=== PATIENT | female | born 1930 | race Caucasian/White ===

== ENCOUNTER 2017-04-03 20:11 | Inpatient (IN) ==
[2017-04-03] MEDS ORDERED: Ipratropium/Albuterol Neb 3 ML IH ONE (20:40)
[2017-04-03] MEDS ORDERED: methylPREDNISolone 125 MG/2 ML VIAL IVP ONE (20:41)
--- NOTE | 2017-04-03 21:07 | Emergency Department Note ---
Disposition Clinical Impression: Acute exacerbation of chronic obstructive airways disease Disposition: Admitted As Inpatient Condition: Fair Referrals: Kirstin Kraus DO [Primary Care Provider] - Forms: ED Satisfaction Letter Time of Disposition: 22:45 SOB HPI - General Chief Complaint: ED Shortness of Breath/Dyspnea Stated Complaint: LISSY, congestion Time Seen by Provider: 04/03/17 20:20 Source: patient, family Limitations: no limitations Nursing Notes Reviewed: Yes Vital Signs Reviewed: Yes - History of Present Illness Ms. Lares is an 87 y/o F with a PMHx of COPD presents with difficulty breathing and shortness of breath. She states that she is more short of breath during coughing. Patient states that she has been feeling congested for the past 2 weeks. Also, the patient states that she had a sinus infection 2 weeks ago. She recently completed a course of amoxicillin for 10 days 1 week ago. Patient states that she feels like her sinus infection has not improved since 2 weeks ago. Patient admits that she was short of breath yesterday on exertion, but today she was short of breath at rest. She is currently on 2 L of oxygen at home. Patient admits productive cough that has been worsening over the past 2 weeks. Patient denies any fever, chest pain, palpitations, abdominal pain, constipation, diarrhea, nausea and vomiting, and weaknesses. Pt Subjective Complaint: shortness of breath, cough Onset (ago): week(s) (two weeks ago) Context: recent illness, occurred during exertion Severity: severe Consistency/Duration: gradually worsening Improves with: nothing Worsens with: coughing Known history of: COPD Associated symptoms: Reports: cough, wheezing, sputum production. Denies: pain with inspiration, fever, hemoptysis, abdominal pain Cough present: Yes Cough Description: Productive Cough Frequency: Persistent Sputum production: Yes Sputum Color: Yellow - Related Data Home oxygen amount: 2 liters Home Medications Medication Instructions Recorded Confirmed Benzonatate [Tessalon] 100 mg PO TID PRN 07/01/15 07/01/15 Fexofenadine/Pseudoephedrine 1 each PO DAILY PRN 07/01/15 07/01/15 [Katarina-D 24 Hour Tablet] Gabapentin [Neurontin] 600 mg PO TID 07/01/15 07/01/15 Levothyroxine [Synthroid] 75 mcg PO QAM 07/01/15 07/01/15 Lisinopril 2.5 mg PO DAILY 07/01/15 07/01/15 Loperamide HCl [Imodium A-D] 2 mg PO BID PRN 07/01/15 07/01/15 NIFEdipine [Nifedipine ER] 60 mg PO DAILY 07/01/15 07/01/15 Potassium Chloride [Klor-Con 10 meq PO QAM 07/01/15 07/01/15 Sprinkle] Sennosides/Docusate Sodium [Senna 1 - 2 each PO DAILY PRN 07/01/15 07/01/15 Plus] Simvastatin [Zocor] 20 mg PO HS 07/01/15 07/01/15 carBAMazepine [Tegretol] 200 mg PO BID 07/01/15 07/01/15 diazePAM [Valium] 2 mg PO HS 07/01/15 07/01/15 Allergies Allergy/AdvReac Type Severity Reaction Status Date / Time cephalexin [From Keflex] Allergy Difficulty Verified 04/03/17 20:14 Breathing levofloxacin [From Levaquin] Allergy Difficulty Verified 04/03/17 20:14 Breathing moxifloxacin [From Avelox] Allergy Difficulty Verified 04/03/17 20:14 Breathing Constitutional: Denies: fever, chills, weakness, weight change Eyes: Denies: eye pain, eye discharge, vision change ENT ED: Denies: ear pain, throat pain, dental pain, hearing loss, epistaxis, congestion, dysphagia Cardiovascular: Reports: dyspnea on exertion. Denies: chest pain, palpitations , edema, syncope Respiratory: Reports: cough, dyspnea, wheezes, sputum production. Denies: hemoptysis, stridor Gastrointestinal: Denies: abdominal pain, nausea, vomiting, diarrhea, constipation, hematemesis, melena, hematochezia Genitourinary: Denies: dysuria, frequency, hematuria, discharge Musculoskeletal: Denies: back pain, neck pain, arthralgia, myalgia Integumentary: Denies: rash, abrasion, lesions Neurological: Denies: headache, weakness, numbness, paresthesias, confusion, abnormal gait, vertigo Psychiatric: Denies: anxiety, depression, suicidal thoughts, homicidal thoughts , auditory hallucinations, visual hallucinations Endocrine: Denies: fatigue Hematological/Lymphatic: Denies: easy bleeding, easy bruising Allergic/Immunologic: Denies: facial swelling, urticaria Past Medical History - Past Medical History Medical history: Reports: arthritis, COPD, diabetes, GERD, glaucoma, hypertension, osteoporosis, seizures, thyroid disease, other Surgical history: Reports: no surgical history Psychiatric history: Reports: anxiety LICENSED CLINICIAN history: Reports: non-contributory - Social History Smoking Status: Former smoker Smokeless Tobacco Status: No Alcohol use: Reports: none Drug use: Reports: none Physical Exam - General Limitations: no limitations General appearance: alert, in no apparent distress - Head Head exam: atraumatic, normocephalic, normal inspection - Eye Eye exam: Present: normal appearance, PERRL, EOMI - Expanded Eye Exam Pupils: Left: reactive - ENT ENT exam: normal exam, normal oropharynx, mucous membranes moist - Expanded ENT Exam External ear exam: Present: normal external inspection Mouth exam: Present: normal external inspection Teeth exam: Present: normal inspection Throat exam: Present: normal inspection - Neck Neck exam: Present: normal inspection, full ROM, trachea midline - Chest Chest inspection: Present: normal inspection, symmetric chest wall rise - Respiratory Respiratory exam: Present: wheezes (wheezes bilaterally in upper and lower lobes ), prolonged expiratory phase - Cardiovascular Cardiovascular exam: Present: regular rate, normal rhythm, normal heart sounds. Absent: systolic murmur, diastolic murmur, rubs, gallop - Abdominal Exam Abdominal exam: Present: soft, Non-Tender, normal bowel sounds. Absent: tenderness, distention, guarding, rebound, rigidity, organomegaly, trauma - Extremities Exam Extremities exam: Present: normal inspection, full ROM. Absent: tenderness, pedal edema - Expanded Upper Extremity Exam Shoulder exam: Present: normal inspection, full ROM Arm exam: Present: normal inspection, full ROM Elbow exam: Present: normal inspection, full ROM Forearm/Wrist exam: Present: normal inspection, full ROM Hand exam: Present: normal inspection, full ROM Vascular exam: Normal: capillary refill, radial pulse - Expanded Lower Extremity Exam Hip/Pelvis exam: Present: normal inspection, full ROM Upper leg exam: Present: normal inspection, full ROM Knee exam: Present: normal inspection, full ROM Lower leg exam: Present: normal inspection, full ROM Ankle exam: Present: normal inspection, full ROM Foot/toe exam: Present: normal inspection, full ROM Neurovascular/Tendon exam: Absent: motor deficit, sensory deficit, tendon deficit - Back Exam Back exam: Present: normal inspection, full ROM. Absent: tenderness - Neurological Exam Neurological exam: Present: alert, oriented X3 - Expanded Neurological Exam Patient oriented to: Present: person, place, time Coma Scale Eye Opening: Spontaneous Coma Scale Motor Response: Obeys Commands Coma Scale Verbal Response: Oriented Coma Scale Total: 15 - Psychiatric Psychiatric exam: Present: normal affect, normal mood - Skin Skin exam: Present: warm, dry, intact, normal color Course - Reevaluation(s) Reevaluation #1: 87-year-old COPD has progressive shortness of breath. Initially was just with exertion but now at rest. Time: 23:40 - Consultations Consultation #1: Discussed with , admit. Time: 23:41 Vital Signs Temperature 98.1 F 04/03/17 20:15 Pulse Rate 91 04/03/17 20:15 Respiratory Rate 24 04/03/17 20:15 Blood Pressure 124/68 04/03/17 20:15 O2 Sat by Pulse Oximetry 96 04/03/17 20:15 Temperature 98.1 F 04/03/17 20:15 Pulse Rate 74 04/03/17 23:15 Respiratory Rate 16 04/03/17 23:15 Blood Pressure 129/61 04/03/17 23:15 O2 Sat by Pulse Oximetry 97 04/03/17 23:15 Oxygen Delivery Oxygen Delivery Nasal Cannula Shortness of Breath/Dyspnea - Lab Data Lab results reviewed: Yes I reviewed the patient's lab results. Result diagrams: 04/03/17 21:13 04/03/17 21:13 Lab Results 04/03/17 04/03/17 04/03/17 Range/Units 21:13 21:13 21:13 WBC 7.3 (4.3-11.1) K/mcL RBC 3.39 L (3.82-4.97) M/mcL Hgb 11.4 L (11.5-15.4) g/dL Hct 33.7 L (35.3-44.9) % MCV 99.4 (83.0-100.0) fL MCH 33.6 H (28.0-33.3) pg MCHC 33.8 (31.6-35.5) g/dL RDW 12.5 (11.5-14.5) % Plt Count 258 (140-400) K/mcL MPV 9.3 L (9.4-12.4) fL Immature Gran % 0.3 (0-4) % Seg Neutrophils % 50.9 % Lymphocytes % 27.1 % Monocytes % 14.1 % Eosinophils % 7.1 % Basophils % 0.5 % Neutrophils # 3.7 (1.6-8.9) K/mcL Lymphocytes # 2.0 (0.6-4.6) K/mcL Monocytes # 1.0 (0.0-1.3) K/mcL Eosinophils # 0.5 (0.0-0.6) K/mcL Basophils # 0.0 (0.0-0.2) K/mcL Sodium 135 L (136-145) mEq/L Potassium 3.6 (3.5-4.5) mEq/L Chloride 98 (98-109) mEq/L Carbon Dioxide 29 (19-29) mEq/L BUN 16 (7-20) mg/dL Creatinine 0.96 (0.57-1.11) mg/dL Est GFR ( Amer) > 60 (> 60) Est GFR (Non-Af Amer) 55 L (> 60) BUN/Creatinine Ratio 17 (6-26) Glucose 145 H (70-99) mg/dL Calculated Osmolality 284 (280-300) Lactic Acid (0.5-2.2) mmol/L Calcium 9.2 (8.6-10.8) mg/dL Troponin I 0.01 (0-0.03) ng/mL B-Natriuretic Peptide (0-100) pg/mL 04/03/17 04/03/17 Range/Units 21:13 21:21 WBC (4.3-11.1) K/mcL RBC (3.82-4.97) M/mcL Hgb (11.5-15.4) g/dL Hct (35.3-44.9) % MCV (83.0-100.0) fL MCH (28.0-33.3) pg MCHC (31.6-35.5) g/dL RDW (11.5-14.5) % Plt Count (140-400) K/mcL MPV (9.4-12.4) fL Immature Gran % (0-4) % Seg Neutrophils % % Lymphocytes % % Monocytes % % Eosinophils % % Basophils % % Neutrophils # (1.6-8.9) K/mcL Lymphocytes # (0.6-4.6) K/mcL Monocytes # (0.0-1.3) K/mcL Eosinophils # (0.0-0.6) K/mcL Basophils # (0.0-0.2) K/mcL Sodium (136-145) mEq/L Potassium (3.5-4.5) mEq/L Chloride (98-109) mEq/L Carbon Dioxide (19-29) mEq/L BUN (7-20) mg/dL Creatinine (0.57-1.11) mg/dL Est GFR ( Amer) (> 60) Est GFR (Non-Af Amer) (> 60) BUN/Creatinine Ratio (6-26) Glucose (70-99) mg/dL Calculated Osmolality (280-300) Lactic Acid 0.9 (0.5-2.2) mmol/L Calcium (8.6-10.8) mg/dL Troponin I (0-0.03) ng/mL B-Natriuretic Peptide 46 (0-100) pg/mL - Radiology Data Radiology results reviewed: Yes I reviewed the patient's radiology results. Chest X-Ray 04/03/17 20:46 IMPRESSION: No focal airspace consolidation or pulmonary vascular congestion. D/ / Keith Wright / Keith Wright Interpreting Provider: Keith Wright - EKG Data EKG attestation: Yes I reviewed and interpreted this EKG. EKG shows normal: Reports: sinus rhythm Rate: Reports: normal Rhythm: Reports: NSR Interpretation: Reports: no acute changes, nonspecific ST-T wave changes
[2017-04-03 21:26] LABS: Basophils % 0.5 %; Eosinophils # 0.5 K/mcL (0.0-0.6); Eosinophils % 7.1 %; Hematocrit 33.7 % (35.3-44.9); Hemoglobin 11.4 g/dL (11.5-15.4); Immature Granulocytes % 0.3 % (0-4); Lymphocytes % 27.1 %; Mean Corpuscular HGB Conc 33.8 g/dL (31.6-35.5); Mean Corpuscular Hemoglobin 33.6 pg (28.0-33.3); Mean Corpuscular Volume 99.4 fL (83.0-100.0); Mean Platelet Volume 9.3 fL (9.4-12.4); Monocytes % 14.1 %; Neutrophils # 3.7 K/mcL (1.6-8.9); Platelet Count 258 K/mcL (140-400); Red Blood Count 3.39 M/mcL (3.82-4.97); Red Cell Distribution Width 12.5 % (11.5-14.5); Segmented Neutrophils % 50.9 %
[2017-04-03 21:39] LABS: BUN/Creatinine Ratio 17 (6-26); Blood Urea Nitrogen 16 mg/dL (7-20); Calcium 9.2 mg/dL (8.6-10.8); Carbon Dioxide 29 mEq/L (19-29); Chloride 98 mEq/L (98-109); Glucose 145 mg/dL (70-99); Osmolality,Calculated 284 (280-300); Potassium 3.6 mEq/L (3.5-4.5); Sodium 135 mEq/L (136-145); eGFR For African Americans > 60 (> 60); eGFR For Non-African Americans 55 (> 60)
[2017-04-04] MEDS ORDERED: Naloxone 0.4 MG/ML INJ IVP PRN (02:51)
[2017-04-04] MEDS ORDERED: Albuterol 2.5 MG/3 ML NEBULIZER IH PRN (02:57)
[2017-04-04] MEDS ORDERED: Sennosides/Docusate Sodium TABLET PO PRN (02:59)
[2017-04-04] MEDS ORDERED: Gabapentin 300 MG CAPSULE PO PRN (02:59)
[2017-04-04] MEDS ORDERED: Loratadine/Pseudophed (12 HR) 1 EACH TABLET PO PRN (02:59)
[2017-04-04] MEDS ORDERED: carBAMazepine 200 MG TABLET PO PRN (02:59)
[2017-04-04] MEDS ORDERED: Dextrose Gel 15 GM PO PRN ×2 (03:02)
[2017-04-04] MEDS ORDERED: D5% in Water 1,000 ML IVC PRN (03:02)
[2017-04-04] MEDS ORDERED: *HR* Dextrose 50 % in Water (Syg) 50 ML SYRINGE IVP PRN (03:02)
[2017-04-04] MEDS: Ipratropium/Albuterol Neb 3 ML IH SCH ×6 (03:12→20:02)
--- NOTE | 2017-04-04 03:30 | Internal Med History&Physical ---
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 She has home health only twice a week. consider social group worker evaluation prior to discharge to increase home health. Pt reports of being able to ambulate well around her house and uses a walker when she goes outside. (2) Hypothyroidism Current visit: Yes Status: Chronic continue home dose of levothyroxine Qualifiers: Hypothyroidism type: unspecified Qualified Code(s): E03.9 - Hypothyroidism , unspecified (3) Diabetes mellitus Current visit: Yes Status: Chronic hold oral antihyperglycemic agents continue sliding scale insulin algorithm monitor FS and BG ADA diet Qualifiers: Diabetes mellitus type: type 2 Diabetes mellitus complication status: with unspecified complications Diabetes mellitus exterminator termite insulin use: without exterminator termite use Qualified Code(s): E11.8 - Type 2 diabetes mellitus with unspecified complications (4) Hypertension Current visit: Yes Status: Chronic BP within acceptable range continue home medications Qualifiers: Hypertension type: essential hypertension Qualified Code(s): I10 - Essential (primary) hypertension (5) Anxiety Current visit: Yes Status: Chronic continue home medications (6) DVT prophylaxis Current visit: Yes Status: Acute Heparin SQ Internal Medicine - H&P: HPI Chief complaint: shortness of breath Admitted From: Home Plans for Post Hospital Care: Home History of present illness: Ms. Lares is a 87 year old female with PMH of COPD on LTOT, DM, GERD, HTN, hypothyroidism, anxiety who presents to the ER for worsening shortness of breath. Patient reports of living alone, is legally blind, and only has home health aid twice a week. She states she has had productive cough for the last few days with difficulty breathing, which has not been improved with her home breathing treatments. Upon arrival to the ER, she received IV steroids and nebulizer treatment. She reports of mild improvement and is currently saturating well on her baseline O2. She denies fevers but reports of persistent productive cough. Denies any chest pain, abd pain, n/v,fever, or chills. I had a detailed discussion about patient's advance directives. She wishes to be full code and elects her daughter Teena Rivas as her POA. Past Med Surg Social Fam HX - Past Medical History Medical history: arthritis, COPD, diabetes, GERD, glaucoma, hypertension, osteoporosis, thyroid disease, other Psychiatric history: anxiety - Past Surgical History Surgical History: no surgical history - Social History Smoking Status: Light tobacco smoker Smokeless Tobacco Status: No Alcohol use: none Drug use: none - Family History Mother Living Status: Hx Family Cardiac Disorders: Yes Internal Medicine - H&P: Meds Benzonatate [Tessalon] 100 mg PO TID PRN 07/01/15 [History] Fexofenadine/Pseudoephedrine [Katarina-D 24 Hour Tablet] 1 each PO DAILY PRN [History] Gabapentin [Neurontin] 600 mg PO TID PRN 07/01/15 [History] Levothyroxine [Synthroid] 75 mcg PO QAM 07/01/15 [History] Lisinopril 2.5 mg PO DAILY 07/01/15 [History] NIFEdipine [Nifedipine ER] 60 mg PO DAILY 07/01/15 [History] Potassium Chloride [Klor-Con Sprinkle] 10 meq PO QAM 07/01/15 [History] Sennosides/Docusate Sodium [Senna Plus] 1 - 2 each PO DAILY PRN 07/01/15 [ History] Simvastatin [Zocor] 20 mg PO HS 07/01/15 [History] carBAMazepine [Tegretol] 200 mg PO BID PRN 07/01/15 [History] diazePAM [Valium] 2 mg PO HS 07/01/15 [History] Metformin HCl [Glucophage] 1,000 mg PO HS 04/04/17 [History] 3 Allergy/AdvReac Type Severity Reaction Status Date / Time cephalexin [From Keflex] Allergy Difficulty Verified 04/03/17 20:14 Breathing levofloxacin [From Levaquin] Allergy Difficulty Verified 04/03/17 20:14 Breathing moxifloxacin [From Avelox] Allergy Difficulty Verified 04/03/17 20:14 Breathing All Systems PM: A 10-system review of systems was performed and is negative for pertinent findings except as documented above in the HPI. - Constitutional Constitutional: as per HPI - Constitutional Vitals: Temp Pulse Resp BP Pulse Ox 97.6 F 80 18 149/66 96 09/26/17 01:14 04/04/17 01:14 04/04/17 03:13 04/04/17 01:14 04/04/17 03:13 General appearance: Present: cooperative, A&O X 3, pleasant, no acute distress, answers questions appropriately - Head Head exam: Present: atraumatic, normocephalic - Eye Eye exam: Present: conjuntiva pink, sclera anicteric (legally blind) - Respiratory Respiratory exam: Present: wheezes (b/l expiratory wheezing, diffuse coarse breath sounds ). Absent: respiratory distress - Cardiovascular Cardiovascular exam: Present: RRR, +S1, +S2. Absent: diastolic murmur, gallop, rubs, systolic murmur - GI/Abdominal GI/Abdominal exam: Present: normal bowel sounds, soft, no peritoneal signs. Absent: distended, tenderness - Extremities Exam Extremities exam: Present: warm, radial pulses palpable and symmetrical. Absent : calf tenderness, cyanotic, pedal edema - Neurological Exam Neurological exam: Present: alert, oriented X3 - Psychiatric Psychiatric exam: Present: normal affect, normal mood Internal Med - H&P Results - Labs CBC & Chem 7: 04/03/17 21:13 04/03/17 21:13
[2017-04-04] MEDS: diazePAM 2 MG TABLET PO SCH ×2 (03:36→22:28)
[2017-04-04] MEDS: Azithromycin 500 MG in D5% in Water 250 ML IVPB SCH (03:37)
[2017-04-04] MEDS: Insulin LISPRO 300 UNITS/3 ML VIAL SQ SCH ×5 (03:37→22:28)
[2017-04-04] MEDS: MethylPREDNISolone 40 MG/ML VIAL IVP SCH ×3 (06:40→22:29)
[2017-04-04] MEDS: *HR* Heparin 5,000 UNIT/ML VIAL SQ SCH ×2 (06:40→17:47)
[2017-04-04] MEDS: NIFEdipine XL (24 HR) 60 MG TAB.ER.24 PO SCH (07:52)
--- NOTE | 2017-04-04 18:43 | Event Note ---
Date of Encounter: 04/04/17 Time of Encounter: 13:45 PT was seen and assessed at 1345. Pt sitting on edge of bed,wearing 02. Pt with audible wheezing and states that she does not feel better at this time. Pt has non-productive cough and has had increased difficulty breathing x 3 weeks. Pt was treated with amoxicillin for 10days by PCP for sinusitis and did not get better. Patient has requested that we do a 6 minute walk to try to qualify her for 3 L of oxygen at home. She also reports that she has a sore throat and is requesting that we humidify her oxygen, I will also order Chloraseptic spray. Patient has multiple complaints as I am leaving the room including increasing hypertension and increasing hyperglycemia. Chest x-ray is negative. No focal airspace consolidation or pulmonary vascular congestion. Patient with history of COPD Will continue her Proventil nebulizers and duo nebs. She is being treated with Tessalon Perles, Zithromax, Solu-Medrol. Continue treatment. Physical exam is unremarkable. Patient has audible wheezing, she also has faint expiratory wheezing in bilateral bases lungs are clear diminished otherwise. S1 and S2 with regular rate and rhythm without tachycardia, gallops , clicks, murmurs. Abdomen is soft nondistended with bowel sounds present. There is no tenderness with palpation. There is no peripheral edema, she has adequate range of motion. We will continue treatment as stated above. Patient will most likely discharge tomorrow if labs and vitals are stable.
--- NOTE | 2017-04-04 19:22 | Electrocardiograph Report ---
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
[2017-04-04] MEDS ORDERED: Saliva Stimulant 100ml BOTTLE PO PRN (21:40)
[2017-04-04] MEDS: Latanoprost 2.5 ML BOTTLE BOTH EYES SCH (23:41)
[2017-04-05] MEDS: Ipratropium/Albuterol Neb 3 ML IH SCH ×7 (00:05→23:21)
[2017-04-05] MEDS: Azithromycin 500 MG in D5% in Water 250 ML IVPB SCH (03:26)
[2017-04-05] MEDS: Chloraseptic Spray 177 ML BOTTLE MM PRN ×3 (04:16→21:21)
[2017-04-05 05:25] LABS: Hematocrit 30.1 % (35.3-44.9); Hemoglobin 10.5 g/dL (11.5-15.4); Mean Corpuscular HGB Conc 34.9 g/dL (31.6-35.5); Mean Corpuscular Hemoglobin 35.1 pg (28.0-33.3); Mean Corpuscular Volume 100.7 fL (83.0-100.0); Mean Platelet Volume 9.7 fL (9.4-12.4); Platelet Count 234 K/mcL (140-400); Red Blood Count 2.99 M/mcL (3.82-4.97); Red Cell Distribution Width 12.2 % (11.5-14.5)
[2017-04-05 05:26] LABS: Basophils % 0.1 %; Immature Granulocytes % 0.7 % (0-4); Lymphocytes # 0.6 K/mcL (0.6-4.6); Lymphocytes % 4.7 %; Monocytes # 0.8 K/mcL (0.0-1.3); Monocytes % 5.5 %; Neutrophils # 12.2 K/mcL (1.6-8.9)
[2017-04-05 05:33] LABS: BUN/Creatinine Ratio 28 (6-26); Blood Urea Nitrogen 29 mg/dL (7-20); Calcium 9.2 mg/dL (8.6-10.8); Carbon Dioxide 28 mEq/L (19-29); Chloride 93 mEq/L (98-109); Glucose 288 mg/dL (70-99); Osmolality,Calculated 284 (280-300); Potassium 4.3 mEq/L (3.5-4.5); Sodium 129 mEq/L (136-145); eGFR For African Americans > 60 (> 60); eGFR For Non-African Americans 50 (> 60)
[2017-04-05] MEDS: MethylPREDNISolone 40 MG/ML VIAL IVP SCH ×2 (05:52→14:23)
[2017-04-05] MEDS: *HR* Heparin 5,000 UNIT/ML VIAL SQ SCH ×2 (05:52→17:03)
[2017-04-05] MEDS: NIFEdipine XL (24 HR) 60 MG TAB.ER.24 PO SCH (09:06)
[2017-04-05] MEDS: Insulin LISPRO 300 UNITS/3 ML VIAL SQ SCH ×4 (09:08→21:31)
--- NOTE | 2017-04-05 18:36 | Internal Med Progress Note ---
Date of Encounter: 04/05/17 Time of Encounter: 14:10 - Assessment and plan (1) Acute exacerbation of chronic obstructive airways disease Current Visit: Yes Status: Chronic Assessment and plan: She presented to the emergency room for worsening shortness of breath. She reports productive cough for the last few days with difficulty breathing which has not come better with home breathing treatments. She is being treated with antibiotics IV, IV steroids, breathing treatments. She does appear to me to be improving. Her lungs are clear diminished throughout. Chest x-ray was negative for pulmonary vascular congestion and no consolidation. BNP is also negative. Chest X-Ray 04/03/17 20:46 IMPRESSION: No focal airspace consolidation or pulmonary vascular congestion. D/ / Keith Wright / Keith Wright Interpreting Provider: Keith Wright (2) Sore throat Current Visit: Yes Status: Acute Assessment and plan: Symptoms reported a sore throat for the last 2 days. Today she states that she is able to drink sips of water after a coughing episode which made her sore throat worse. Her oxygen has been humidified and she has Chloraseptic spray at bedside. I examined her throat tonsils are +1, there is no daily or redness to throat. She does have 1 firm, movable left-sided mandibular lymph node that is tender to palpation. Patient states that she noticed it overnight. Rapid strep , flu swab, and viral swab has been ordered and are pending collection. Will monitor in the morning. Patient does have mild leukocytosis, patient is receiving IV steroids. There is no fever or tachycardia. We will continue to monitor. (3) Hypothyroidism Current Visit: Yes Status: Chronic Assessment and plan: Chronic. Continue home medications. Qualifiers: Hypothyroidism type: unspecified Qualified Code(s): E03.9 - Hypothyroidism , unspecified (4) Diabetes mellitus Current Visit: Yes Status: Chronic Assessment and plan: Attending sliding scale insulin, Accu-Cheks, diabetic diet. Last A1c was 6.2 in October. Qualifiers: Diabetes mellitus type: type 2 Diabetes mellitus complication status: with unspecified complications Diabetes mellitus halfway insulin use: without extermination supervisor use Qualified Code(s): E11.8 - Type 2 diabetes mellitus with unspecified complications (5) Hypertension Current Visit: Yes Status: Chronic Qualifiers: Hypertension type: essential hypertension Qualified Code(s): I10 - Essential (primary) hypertension (6) Anxiety Current Visit: Yes Status: Chronic Assessment and plan: Patient with anxiety. I do believe at times that her shortness of breath is related to anxiety. She lives alone and only has nursing care once a month and 8 once a week. tar worker is on board for discharge planning. Family states that she has become unable to care for herself at home. She is legally blind. She will continue her home medications and will continue to monitor. (7) DVT prophylaxis Current Visit: Yes Status: Acute Assessment and plan: Patient is up at bedside, in the chair. Heparin subcutaneous. - Time Spent With Patient less than 15 minutes - Subjective Interval history: Patient was seen and assessed at 1410. She is alert and oriented, sitting in her chair at the bedside. Family is at bedside as well. They state that she has been having trouble caring for herself at home recently and that she has become increasingly gurgly. They state that she is in congestive heart failure. I discussed with him the fact that she has no prior history and her BNP is negative/not elevated. Patient has minimal pitting edema which is normal for her and unchanged. Patient appears to be improving with steroids, breathing treatments, and antibiotics. The only member states that she would like the patient to go to a senior living since she is unable to care for herself. support services tech was made aware. Patient mentioned having a sore throat yesterday. We have humidify her oxygen and given her Chloraseptic spray to use when necessary. She states that he has not improved today, and has actually become worse after coughing spell earlier today. I have ordered viral screen, rapid strep, and flu swab to be done, they are not collected yet. Will check lab results in the morning. Tonsils are +1, there is no exudate or redness to throat. Patient does have a tender left submandibular lymph node that she pointed out to me that she noticed overnight. - Constitutional Vitals: Temp Pulse Resp BP Pulse Ox 97.6 F 76 16 115/64 98 04/05/17 16:16 04/05/17 16:16 04/05/17 16:16 04/05/17 16:16 04/05/17 16:16 General appearance: Present: cooperative, A&O X 3, pleasant, no acute distress, answers questions appropriately - Head Head exam: Present: atraumatic, normal inspection, normocephalic - Eye Eye exam: Present: normal appearance, conjuntiva pink, sclera anicteric - Neck Neck exam general surgery: Present: lymphadenopathy, supple, trachea midline - Respiratory Respiratory exam: Present: decreased breath sounds, CTAB. Absent: accessory muscle use, rales, rhonchi, wheezes - Cardiovascular Cardiovascular exam: Present: RRR, +S1, +S2. Absent: diastolic murmur, gallop, rubs, systolic murmur - GI/Abdominal GI/Abdominal exam: Present: normal bowel sounds, soft, no peritoneal signs. Absent: distended, hepatomegaly, tenderness - Extremities Exam Extremities exam: Present: normal capillary refill, pedal edema, warm, radial pulses palpable and symmetrical. Absent: calf tenderness, cyanotic - Neurological Exam Neurological exam: Present: oriented X3, no focal deficits. Absent: facial droop, speech deficit - Skin Skin exam: Present: dry, intact, normal color, warm. Absent: rash Internal Medicine: Result - Labs CBC & Chem 7: 04/05/17 04:57 04/05/17 04:57 Labs: Short CBC 04/05/17 Range/Units 04:57 WBC 13.7 H D (4.3-11.1) K/mcL Hgb 10.5 L (11.5-15.4) g/dL Hct 30.1 L (35.3-44.9) % Plt Count 234 (140-400) K/mcL Neutrophils # 12.2 H (1.6-8.9) K/mcL BMP 04/05/17 04:57 Sodium 129 L Potassium 4.3 Chloride 93 L Carbon Dioxide 28 BUN 29 H D Creatinine 1.05 Glucose 288 H Calcium 9.2 Consult Discharge Plan - Plan Referrals: Kirstin Kraus DO [Primary Care Provider] -
[2017-04-05] MEDS: diazePAM 2 MG TABLET PO SCH (21:18)
[2017-04-05] MEDS: Benzonatate 100 MG CAPSULE PO PRN (21:27)
[2017-04-05] MEDS: Latanoprost 2.5 ML BOTTLE BOTH EYES SCH (21:28)
[2017-04-05 22:37] LABS: Adenovirus Not Detected (Not Detect); Bordetella Pertussis Not Detected (Not Detect); Chlamydophila pneumoniae Not Detected (Not Detect); Coronavirus 229E Not Detected (Not Detect); Coronavirus HKU1 Not Detected (Not Detect); Coronavirus NL63 Not Detected (Not Detect); Coronavirus OC43 Not Detected (Not Detect); Human Metapneumovirus Not Detected (Not Detect); Human Rhinovirus/Enterovirus Not Detected (Not Detect); Influenza A Subtype 2009 H1 Not Detected (Not Detect); Influenza A Untypeable Not Detected (Not Detect); Influenza B Not Detected (Not Detect); Mycoplasma pneumoniae Not Detected (Not Detect); Parainfluenza Virus 1 Not Detected (Not Detect); Parainfluenza Virus 2 Not Detected (Not Detect); Parainfluenza Virus 3 Not Detected (Not Detect); Parainfluenza Virus 4 Not Detected (Not Detect); Respiratory Syncytial Virus Not Detected (Not Detect)
[2017-04-06] MEDS: Ipratropium/Albuterol Neb 3 ML IH SCH ×6 (03:16→23:07)
[2017-04-06] MEDS: Azithromycin 500 MG in D5% in Water 250 ML IVPB SCH (04:06)
[2017-04-06 04:59] LABS: Basophils % 0.1 %; Hematocrit 30.4 % (35.3-44.9); Hemoglobin 10.7 g/dL (11.5-15.4); Immature Granulocytes % 0.6 % (0-4); Lymphocytes # 1.2 K/mcL (0.6-4.6); Lymphocytes % 8.6 %; Mean Corpuscular HGB Conc 35.2 g/dL (31.6-35.5); Mean Corpuscular Hemoglobin 34.7 pg (28.0-33.3); Mean Corpuscular Volume 98.7 fL (83.0-100.0); Mean Platelet Volume 9.8 fL (9.4-12.4); Monocytes # 1.2 K/mcL (0.0-1.3); Neutrophils # 11.9 K/mcL (1.6-8.9); Platelet Count 254 K/mcL (140-400); Red Blood Count 3.08 M/mcL (3.82-4.97); Red Cell Distribution Width 12.3 % (11.5-14.5); Segmented Neutrophils % 82.7 %
[2017-04-06 05:15] LABS: BUN/Creatinine Ratio 30 (6-26); Blood Urea Nitrogen 27 mg/dL (7-20); Calcium 8.9 mg/dL (8.6-10.8); Carbon Dioxide 27 mEq/L (19-29); Chloride 91 mEq/L (98-109); Glucose 182 mg/dL (70-99); Osmolality,Calculated 274 (280-300); Potassium 4.4 mEq/L (3.5-4.5); Sodium 127 mEq/L (136-145); eGFR For African Americans > 60 (> 60); eGFR For Non-African Americans 58 (> 60)
[2017-04-06] MEDS: MethylPREDNISolone 40 MG/ML VIAL IVP SCH ×2 (05:48→17:26)
[2017-04-06] MEDS: *HR* Heparin 5,000 UNIT/ML VIAL SQ SCH ×2 (05:52→17:25)
[2017-04-06] MEDS: NIFEdipine XL (24 HR) 60 MG TAB.ER.24 PO SCH (08:40)
[2017-04-06] MEDS: Insulin LISPRO 300 UNITS/3 ML VIAL SQ SCH ×4 (08:41→22:05)
[2017-04-06] MEDS ORDERED: Ipratropium/Albuterol Neb 3 ML IH ONE (15:24)
--- NOTE | 2017-04-06 16:53 | Internal Med Progress Note ---
Date of Encounter: 04/06/17 Time of Encounter: 14:25 - Assessment and plan (1) Acute exacerbation of chronic obstructive airways disease Current Visit: Yes Status: Chronic Assessment and plan: Patient with audible wheezing today, she has conversational dyspnea. Patient reports she had an episode of coughing, since that time she has had increased difficulty breathing, sore throat, and increased wheezing. Repeat chest x-rays been ordered, as well as a continuous DuoNeb. Patient is still maintaining her sats on 2 L of oxygen by nasal cannula. Patient also has moister sounding cough than previously as well has peripheral edema. Patient reports that someone told her she was in congestive heart failure, his ordered an echocardiogram for the morning to assess status. Prior to this her BNP was negative, however with increased shortness of breath, it seems reasonable to do an echocardiogram. Chest x-ray report results are pending at this time. Chest X-Ray 04/03/17 20:46 IMPRESSION: No focal airspace consolidation or pulmonary vascular congestion. D/ / Keith Wright / Keith Wright Interpreting Provider: Keith Wright (2) Sore throat Current Visit: Yes Status: Acute Assessment and plan: Patient states her throat is somewhat better today. She denies tenderness to the left submandibular lymph node. Oxygen is humidified, patient has throat spray and bedside. Rapid stress was negative, viral swab was negative. Flu swab is also negative. Continue to monitor. Continue Chloraseptic and humidified 02. (3) Hypothyroidism Current Visit: Yes Status: Chronic Assessment and plan: Chronic. Continue home medications. TSH WNL in October, Qualifiers: Hypothyroidism type: unspecified Qualified Code(s): E03.9 - Hypothyroidism , unspecified (4) Diabetes mellitus Current Visit: Yes Status: Chronic Assessment and plan: Attending sliding scale insulin, Accu-Cheks, diabetic diet. Last A1c was 6.2 in October. Ordered for the morning. Qualifiers: Diabetes mellitus type: type 2 Diabetes mellitus complication status: with unspecified complications Diabetes mellitus penitentiary insulin use: without penitentiary use Qualified Code(s): E11.8 - Type 2 diabetes mellitus with unspecified complications (5) Hypertension Current Visit: Yes Status: Chronic Assessment and plan: Well controlled in hospital. Continue home medications. Qualifiers: Hypertension type: essential hypertension Qualified Code(s): I10 - Essential (primary) hypertension (6) Anxiety Current Visit: Yes Status: Chronic Assessment and plan: Patient with anxiety. She will continue her home medications and will continue to monitor. (7) DVT prophylaxis Current Visit: Yes Status: Acute Assessment and plan: Patient is up at bedside, in the chair. Pt has been ambulatory in her room. Heparin subcutaneous. - Subjective Interval history: Patient was seen and assessed at 1425. Pt has become more wheezy and SOB since yesterday. Pt has conversational dyspnea and audible wheezing. She states that she has felt wheezy since yesterday when she had a bad coughing episode and was short of breath. She denies chest pain, fever, chills, abdominal pain, nausea, vomiting, diarrhea, headache, neck pain. She is aware that she is [facility]. - Constitutional Vitals: Temp Pulse Resp BP Pulse Ox 97.6 F 80 18 115/67 94 04/06/17 15:31 04/06/17 15:31 04/06/17 15:40 04/06/17 15:31 04/06/17 15:40 General appearance: Present: cooperative, A&O X 3, pleasant, no acute distress, answers questions appropriately - Head Head exam: Present: atraumatic, normal inspection, normocephalic - Eye Eye exam: Present: normal appearance, conjuntiva pink, sclera anicteric - Neck Neck exam general surgery: Present: lymphadenopathy, normal inspection, supple, trachea midline. Absent: tenderness - Respiratory Respiratory exam: Present: CTAB, respiratory distress, wheezes. Absent: accessory muscle use, chest wall tenderness, rales, rhonchi - Cardiovascular Cardiovascular exam: Present: RRR, +S1, +S2. Absent: diastolic murmur, gallop, rubs, systolic murmur - GI/Abdominal GI/Abdominal exam: Present: normal bowel sounds, soft, no peritoneal signs. Absent: distended, hepatomegaly, tenderness - Extremities Exam Extremities exam: Present: pedal edema, warm, radial pulses palpable and symmetrical. Absent: calf tenderness, cyanotic - Neurological Exam Neurological exam: Present: alert, oriented X3, no focal deficits. Absent: facial droop, speech deficit - Skin Skin exam: Present: dry, intact, normal color, warm. Absent: rash Internal Medicine: Result - Labs CBC & Chem 7: 04/06/17 04:25 04/06/17 04:25 Labs: Short CBC 04/06/17 Range/Units 04:25 WBC 14.3 H (4.3-11.1) K/mcL Hgb 10.7 L (11.5-15.4) g/dL Hct 30.4 L (35.3-44.9) % Plt Count 254 (140-400) K/mcL Neutrophils # 11.9 H (1.6-8.9) K/mcL BMP 04/06/17 04:25 Sodium 127 L Potassium 4.4 Chloride 91 L Carbon Dioxide 27 BUN 27 H Creatinine 0.91 Glucose 182 H Calcium 8.9 Consult Discharge Plan - Plan Referrals: Kirstin Kraus DO [Primary Care Provider] -
[2017-04-06] MEDS: Benzonatate 100 MG CAPSULE PO PRN (22:02)
[2017-04-06] MEDS: diazePAM 2 MG TABLET PO SCH (22:03)
[2017-04-06] MEDS: Latanoprost 2.5 ML BOTTLE BOTH EYES SCH (22:06)
[2017-04-07] MEDS: Azithromycin 500 MG in D5% in Water 250 ML IVPB SCH (03:25)
[2017-04-07] MEDS: Benzonatate 100 MG CAPSULE PO PRN ×2 (03:25→08:53)
[2017-04-07] MEDS: Ipratropium/Albuterol Neb 3 ML IH SCH ×6 (03:46→23:53)
[2017-04-07] MEDS: MethylPREDNISolone 40 MG/ML VIAL IVP SCH ×2 (05:06→18:38)
[2017-04-07] MEDS: *HR* Heparin 5,000 UNIT/ML VIAL SQ SCH ×2 (05:07→18:38)
[2017-04-07 05:12] LABS: Basophils % 0.2 %; Hematocrit 31.4 % (35.3-44.9); Hemoglobin 10.4 g/dL (11.5-15.4); Immature Granulocytes % 0.9 % (0-4); Lymphocytes # 0.9 K/mcL (0.6-4.6); Lymphocytes % 10.3 %; Mean Corpuscular HGB Conc 33.1 g/dL (31.6-35.5); Mean Corpuscular Hemoglobin 33.1 pg (28.0-33.3); Mean Platelet Volume 9.8 fL (9.4-12.4); Monocytes % 11.5 %; Neutrophils # 6.6 K/mcL (1.6-8.9); Platelet Count 236 K/mcL (140-400); Red Blood Count 3.14 M/mcL (3.82-4.97); Red Cell Distribution Width 12.6 % (11.5-14.5); Segmented Neutrophils % 77.1 %
[2017-04-07 05:23] LABS: Hemoglobin A1C 6.7 %
[2017-04-07 05:26] LABS: BUN/Creatinine Ratio 30 (6-26); Blood Urea Nitrogen 26 mg/dL (7-20); Calcium 8.8 mg/dL (8.6-10.8); Carbon Dioxide 30 mEq/L (19-29); Chloride 97 mEq/L (98-109); Glucose 217 mg/dL (70-99); Osmolality,Calculated 287 (280-300); Potassium 4.3 mEq/L (3.5-4.5); Sodium 133 mEq/L (136-145); eGFR For African Americans > 60 (> 60); eGFR For Non-African Americans > 60 (> 60)
[2017-04-07] MEDS: NIFEdipine XL (24 HR) 60 MG TAB.ER.24 PO SCH (08:53)
[2017-04-07] MEDS: Insulin LISPRO 300 UNITS/3 ML VIAL SQ SCH ×4 (08:54→22:03)
[2017-04-07] MEDS: Chloraseptic Spray 177 ML BOTTLE MM PRN (12:38)
[2017-04-07] MEDS: Doxycycline 100 MG CAPSULE PO SCH ×2 (14:32→21:07)
--- NOTE | 2017-04-07 18:01 | Internal Med Progress Note ---
Date of Encounter: 04/07/17 Time of Encounter: 13:25 - Assessment and plan (1) Acute exacerbation of chronic obstructive airways disease Current Visit: Yes Status: Chronic Assessment and plan: Patient with audible wheezing today, she longer has conversational dyspnea today and sore throat is improving. Patient is still maintaining her sats on 2 L of oxygen by nasal cannula. Patient reports that someone told her she was in congestive heart failure, his ordered an echocardiogram for the morning to assess status. Prior to this her BNP was negative. Echocardiogram showed LVEF of 60-65% with moderate LVEDD, no significant valvular dysfunction. Repeat chest x-ray showed possible pneumonia. I have changed her antibiotic from Zithromax to doxycycline due to her cephalosporin and fluoroquinolone allergy. Chest X-Ray 04/06/17 15:24 IMPRESSION: Mild blunting the costophrenic angles bilaterally with minimal adjacent airspace disease, atelectasis versus pneumonia versus less likely edema D/ / Santhosh Pichardo MD / Santhosh Pichardo MD Interpreting Provider: Santhosh Pichardo MD Echocardiogram 04/06/17 16:30 Impressions: LVEF 60-65%. Normal LV chamber size, wall thickness and function. Moderate left ventricular diastolic dysfunction. Normal right ventricular structure and function. Mild-moderate pulmonary hypertension. Estimated RVSP is 45 mmHg. No significant valvular dysfunction. Left Ventricular Wall Motion: Rest Echo Findings All wall segments showed normal motion. Findings: Study Quality * Technically adequate exam. ECG Findings * Normal sinus rhythm. Left Ventricle * LVEF 60-65%. * Normal LV chamber size, wall thickness and function. * Moderate left ventricular diastolic dysfunction. Right Ventricle * Normal right ventricular structure and function. Left Atrium * Mildly dilated left atrium. Right Atrium * Mildly dilated right atrium. Interatrial Septum * Interatrial septum not well evaluated. Aortic Valve * Trileaflet aortic valve with normal function. * No aortic regurgitation. * No aortic stenosis. Mitral Valve * Focal areas of mild calcification. Normal function. * No mitral regurgitation. * No mitral stenosis. Tricuspid Valve * Normal tricuspid valve structure and function. * Trace tricuspid regurgitation. * Mild-moderate pulmonary hypertension. * Estimated RVSP is 45 mmHg. * Estimated RA pressure is 5 mmHg. Pulmonic Valve * Normal pulmonic valve structure. * Trace pulmonic regurgitation. Aorta * Normally sized aortic root. Pericardium * The pericardium appears normal. IVC * Normal IVC dimensions and inspiratory collapse. Pulmonary Artery * Normal visualized portions of the main pulmonary artery. (2) Sore throat Current Visit: Yes Status: Acute Assessment and plan: Patient states her throat is somewhat better today. She denies tenderness to the left submandibular lymph node. Oxygen is humidified, patient has throat spray and bedside. Rapid stress was negative, viral swab was negative. Flu swab is also negative. Continue to monitor. Continue Chloraseptic and humidified 02. (3) Hypothyroidism Current Visit: Yes Status: Chronic Assessment and plan: Chronic. Continue home medications. TSH WNL in October,. Patient will follow up outpatient for continued monitoring. Qualifiers: Hypothyroidism type: unspecified Qualified Code(s): E03.9 - Hypothyroidism , unspecified (4) Diabetes mellitus Current Visit: Yes Status: Chronic Assessment and plan: Attending sliding scale insulin, Accu-Cheks, diabetic diet. Last A1c was 6.2 in October. A1c is 6.7 now. Qualifiers: Diabetes mellitus type: type 2 Diabetes mellitus complication status: with unspecified complications Diabetes mellitus custodial insulin use: without custodial use Qualified Code(s): E11.8 - Type 2 diabetes mellitus with unspecified complications (5) Hypertension Current Visit: Yes Status: Chronic Assessment and plan: Well controlled in hospital. Continue home medications. Continue to monitor vital signs. Qualifiers: Hypertension type: essential hypertension Qualified Code(s): I10 - Essential (primary) hypertension (6) Anxiety Current Visit: Yes Status: Chronic Assessment and plan: Patient with anxiety. She will continue her home medications and will continue to monitor. (7) DVT prophylaxis Current Visit: Yes Status: Acute Assessment and plan: Patient is up at bedside in the chair. Pt has been ambulatory in her room. Heparin subcutaneous. - Time Spent With Patient less than 15 minutes - Subjective Interval history: Patient was seen and assessed at 1325. Pt has become slightly less wheezing than yesterday. Pt no longer has conversational dyspnea. She denies chest pain , fever, chills, abdominal pain, nausea, vomiting, diarrhea, headache, neck pain. Patient has not significantly improved since yesterday, I changed her antibiotic and pending labs and her condition, she will be ready to go [facility] tomorrow. - Constitutional Vitals: Temp Pulse Resp BP Pulse Ox 98.1 F 97 18 115/62 96 04/07/17 15:28 04/07/17 15:28 04/07/17 15:35 04/07/17 15:28 04/07/17 16:54 General appearance: Present: cooperative, A&O X 3, pleasant, no acute distress, answers questions appropriately - Head Head exam: Present: atraumatic, normal inspection, normocephalic - Eye Eye exam: Present: conjuntiva pink, sclera anicteric - Neck Neck exam general surgery: Present: supple, trachea midline. Absent: lymphadenopathy, tenderness - Respiratory Respiratory exam: Present: wheezes. Absent: accessory muscle use, chest wall tenderness, rales, respiratory distress, rhonchi - Cardiovascular Cardiovascular exam: Present: RRR, +S1, +S2. Absent: diastolic murmur, gallop, rubs, systolic murmur - GI/Abdominal GI/Abdominal exam: Present: normal bowel sounds, soft, no peritoneal signs. Absent: distended, hepatomegaly, tenderness - Extremities Exam Extremities exam: Present: normal capillary refill, normal inspection, warm, radial pulses palpable and symmetrical. Absent: calf tenderness, cyanotic, pedal edema - Neurological Exam Neurological exam: Present: alert, oriented X3, no focal deficits. Absent: facial droop, speech deficit - Skin Skin exam: Present: dry, intact, normal color, warm. Absent: rash Internal Medicine: Result - Labs CBC & Chem 7: 04/07/17 04:32 04/07/17 04:32 Labs: Short CBC 04/07/17 Range/Units 04:32 WBC 8.6 (4.3-11.1) K/mcL Hgb 10.4 L (11.5-15.4) g/dL Hct 31.4 L (35.3-44.9) % Plt Count 236 (140-400) K/mcL Neutrophils # 6.6 (1.6-8.9) K/mcL BMP 04/07/17 04:32 Sodium 133 L Potassium 4.3 Chloride 97 L Carbon Dioxide 30 H BUN 26 H Creatinine 0.86 Glucose 217 H Calcium 8.8 - Impressions Impressions Echocardiogram 04/06/17 16:30 Impressions: LVEF 60-65%. Normal LV chamber size, wall thickness and function. Moderate left ventricular diastolic dysfunction. Normal right ventricular structure and function. Mild-moderate pulmonary hypertension. Estimated RVSP is 45 mmHg. No significant valvular dysfunction. Left Ventricular Wall Motion: Rest Echo Findings All wall segments showed normal motion. Findings: Study Quality * Technically adequate exam. ECG Findings * Normal sinus rhythm. Left Ventricle * LVEF 60-65%. * Normal LV chamber size, wall thickness and function. * Moderate left ventricular diastolic dysfunction. Right Ventricle * Normal right ventricular structure and function. Left Atrium * Mildly dilated left atrium. Right Atrium * Mildly dilated right atrium. Interatrial Septum * Interatrial septum not well evaluated. Aortic Valve * Trileaflet aortic valve with normal function. * No aortic regurgitation. * No aortic stenosis. Mitral Valve * Focal areas of mild calcification. Normal function. * No mitral regurgitation. * No mitral stenosis. Tricuspid Valve * Normal tricuspid valve structure and function. * Trace tricuspid regurgitation. * Mild-moderate pulmonary hypertension. * Estimated RVSP is 45 mmHg. * Estimated RA pressure is 5 mmHg. Pulmonic Valve * Normal pulmonic valve structure. * Trace pulmonic regurgitation. Aorta * Normally sized aortic root. Pericardium * The pericardium appears normal. IVC * Normal IVC dimensions and inspiratory collapse. Pulmonary Artery * Normal visualized portions of the main pulmonary artery. Consult Discharge Plan - Plan Referrals: Kirstin Kraus DO [Primary Care Provider] -
[2017-04-07] MEDS: Latanoprost 2.5 ML BOTTLE BOTH EYES SCH (22:08)
[2017-04-07] MEDS: diazePAM 2 MG TABLET PO SCH (22:08)
[2017-04-07] MEDS ORDERED: *HR* LORazepam 2 MG/ML VIAL IVP ONE (23:25)
[2017-04-08 03:22] LABS: Basophils % 0.2 %; Hematocrit 31.8 % (35.3-44.9); Hemoglobin 10.2 g/dL (11.5-15.4); Immature Granulocytes % 1.6 % (0-4); Lymphocytes # 0.8 K/mcL (0.6-4.6); Lymphocytes % 9.5 %; Mean Corpuscular HGB Conc 32.1 g/dL (31.6-35.5); Mean Corpuscular Hemoglobin 32.2 pg (28.0-33.3); Mean Corpuscular Volume 100.3 fL (83.0-100.0); Mean Platelet Volume 9.7 fL (9.4-12.4); Monocytes # 0.7 K/mcL (0.0-1.3); Monocytes % 7.3 %; Neutrophils # 7.2 K/mcL (1.6-8.9); Platelet Count 254 K/mcL (140-400); Red Blood Count 3.17 M/mcL (3.82-4.97); Red Cell Distribution Width 12.6 % (11.5-14.5); Segmented Neutrophils % 81.4 %
[2017-04-08] MEDS: Ipratropium/Albuterol Neb 3 ML IH SCH ×6 (03:29→23:54)
[2017-04-08 03:30] LABS: BUN/Creatinine Ratio 31 (6-26); Blood Urea Nitrogen 28 mg/dL (7-20); Calcium 8.9 mg/dL (8.6-10.8); Carbon Dioxide 33 mEq/L (19-29); Chloride 98 mEq/L (98-109); Glucose 202 mg/dL (70-99); Osmolality,Calculated 293 (280-300); Potassium 4.7 mEq/L (3.5-4.5); Sodium 136 mEq/L (136-145); eGFR For African Americans > 60 (> 60); eGFR For Non-African Americans 59 (> 60)
[2017-04-08] MEDS: *HR* Heparin 5,000 UNIT/ML VIAL SQ SCH ×2 (05:40→18:25)
[2017-04-08] MEDS: MethylPREDNISolone 40 MG/ML VIAL IVP SCH ×2 (05:41→18:25)
[2017-04-08] MEDS: NIFEdipine XL (24 HR) 60 MG TAB.ER.24 PO SCH (09:03)
[2017-04-08] MEDS: Doxycycline 100 MG CAPSULE PO SCH ×2 (09:04→20:27)
[2017-04-08] MEDS ORDERED: *HR* LORazepam 0.5 MG TABLET PO PRN (10:00)
[2017-04-08] MEDS: Benzonatate 100 MG CAPSULE PO PRN ×2 (10:35→23:07)
[2017-04-08] MEDS: Insulin LISPRO 300 UNITS/3 ML VIAL SQ SCH ×4 (12:31→20:53)
[2017-04-08] MEDS: diazePAM 2 MG TABLET PO SCH (20:27)
[2017-04-08] MEDS: Latanoprost 2.5 ML BOTTLE BOTH EYES SCH (20:28)
[2017-04-09] MEDS: Ipratropium/Albuterol Neb 3 ML IH SCH ×3 (04:13→10:58)
[2017-04-09 04:31] LABS: Basophils % 0.3 %; Hematocrit 32.1 % (35.3-44.9); Hemoglobin 10.7 g/dL (11.5-15.4); Lymphocytes # 1.1 K/mcL (0.6-4.6); Lymphocytes % 12.1 %; Mean Corpuscular HGB Conc 33.3 g/dL (31.6-35.5); Mean Corpuscular Hemoglobin 33.6 pg (28.0-33.3); Mean Corpuscular Volume 100.9 fL (83.0-100.0); Monocytes # 0.7 K/mcL (0.0-1.3); Monocytes % 7.7 %; Platelet Count 272 K/mcL (140-400); Red Blood Count 3.18 M/mcL (3.82-4.97); Red Cell Distribution Width 12.8 % (11.5-14.5); Segmented Neutrophils % 77.9 %
[2017-04-09 04:43] LABS: BUN/Creatinine Ratio 29 (6-26); Blood Urea Nitrogen 24 mg/dL (7-20); Carbon Dioxide 32 mEq/L (19-29); Chloride 97 mEq/L (98-109); Glucose 219 mg/dL (70-99); Osmolality,Calculated 291 (280-300); Potassium 4.5 mEq/L (3.5-4.5); Sodium 135 mEq/L (136-145); eGFR For African Americans > 60 (> 60); eGFR For Non-African Americans > 60 (> 60)
[2017-04-09] MEDS: MethylPREDNISolone 40 MG/ML VIAL IVP SCH (05:52)
[2017-04-09] MEDS: *HR* Heparin 5,000 UNIT/ML VIAL SQ SCH (05:52)
[2017-04-09] MEDS: NIFEdipine XL (24 HR) 60 MG TAB.ER.24 PO SCH (08:49)
[2017-04-09] MEDS: Insulin LISPRO 300 UNITS/3 ML VIAL SQ SCH ×2 (08:49→12:13)
[2017-04-09] MEDS: Doxycycline 100 MG CAPSULE PO SCH (08:50)
[2017-04-09] MEDS: Acetylcysteine 10% 2 ML INHSOL IH SCH ×2 (10:41→10:58)
[2017-04-09 11:24] VITALS: BP 134/71
[2017-04-09] MEDS: Benzonatate 100 MG CAPSULE PO PRN (12:18)
--- NOTE | 2017-04-09 13:20 | Discharge Summary ---
Date of Encounter: 04/09/17 Time of Encounter: 12:15 - Discharge Diagnosis (1) Acute exacerbation of chronic obstructive airways disease Priority: Primary Status: Chronic Comments: Pt has improved today. She has significantly less wheezing than yesterday and states that she is feeling better. Still c/o cough, but states that it has improved. Continue Mucomyst treatments, duonebs, and albuterol prn. Continue steroids continue antibiotics Continue 02 as needed to maintain sats > 92% (2) Sore throat Priority: Secondary Status: Resolved Comments: Pt denies today (3) Hypothyroidism Priority: Secondary Status: Chronic Comments: Chronic. Continue home medications. TSH normal in 10/24 Qualifiers: Hypothyroidism type: unspecified Qualified Code(s): E03.9 - Hypothyroidism , unspecified (4) Diabetes mellitus Priority: Secondary Status: Chronic Comments: Accuchecks elevated due to steroid use. A1c 6.7. Continue SSI and resume home medications. Accuchecks achs while on steroids. Qualifiers: Diabetes mellitus type: type 2 Diabetes mellitus complication status: with unspecified complications Diabetes mellitus medical terminologist insulin use: without care home use Qualified Code(s): E11.8 - Type 2 diabetes mellitus with unspecified complications (5) Hypertension Priority: Secondary Status: Chronic Comments: well controlled. Continue home medications. Qualifiers: Hypertension type: essential hypertension Qualified Code(s): I10 - Essential (primary) hypertension (6) Anxiety Priority: Secondary Status: Chronic Comments: Pt states that Ativan did help her. Anxiety could be contributing to her dyspnea. Will send pt with rx for ativan 0.5mg po bid prn. (7) DVT prophylaxis Priority: Secondary Status: Acute Comments: Pt has been ambulatory and up in the chair. Heparin SQ - Discharge Medications Prescriptions: Cetirizine HCl [Zyrtec] 10 mg PO DAILY #30 capsule diazePAM [Valium] 2 mg PO HS #3 tablet Doxycycline 100 mg PO BID #12 capsule Fluticasone Propionate Nasal [Flonase] 50 mcg NS DAILY #1 bottle Gabapentin [Neurontin] 600 mg PO TID PRN #9 capsule PRN Reason: Pain hydrOXYzine pamoate [HydrOXYzine Pamoate] 25 mg PO BID PRN #6 capsule PRN Reason: Anxiety predniSONE [PredniSONE] 10 mg PO DAILY #40 tablet Home Medications: Lisinopril 2.5 mg PO DAILY 07/01/15 [History] NIFEdipine [Nifedipine ER] 60 mg PO DAILY 07/01/15 [History] Potassium Chloride [Klor-Con Sprinkle] 10 meq PO QAM 07/01/15 [History] Sennosides/Docusate Sodium [Senna Plus] 1 - 2 each PO DAILY PRN 07/01/15 [ History] Simvastatin [Zocor] 20 mg PO HS 07/01/15 [History] Latanoprost [Xalatan] 1 drop BOTH EYES HS 04/04/17 [History] Levothyroxine Sodium 100 mcg PO QAM 04/04/17 [History] Metformin HCl [Glucophage] 1,000 mg PO HS 04/04/17 [History] hydroCHLOROthiazide [Hydrochlorothiazide] 25 mg PO DAILY 04/04/17 [History] Acetylcysteine 10% 2 ml IH [id number] #42 inhsol 04/09/17 [Rx] Albuterol Neb [Proventil Neb] 2.5 mg IH Q2H PRN #0 inhsol 04/09/17 [Rx] Benzonatate [Tessalon] 100 mg PO TID PRN capsule 04/09/17 [Rx] Cetirizine HCl [Zyrtec] 10 mg PO DAILY #30 capsule 04/09/17 [Rx] Chloraseptic [place] [Chloraseptic] 1 spray MM QID PRN bottle 04/09/17 [Rx] Doxycycline 100 mg PO BID #12 capsule 04/09/17 [Rx] Fluticasone Propionate Nasal [Flonase] 50 mcg NS DAILY #1 bottle 04/09/17 [Rx] Gabapentin [Neurontin] 600 mg PO TID PRN #9 capsule 04/09/17 [Rx] GuaiFENesin ER [Mucinex] 1,200 mg PO BID tbbp.12hr 04/09/17 [Rx] Ipratropium/Albuterol Neb [Duoneb] 3 ml IH [id number] #0 inhsol 04/09/17 [Rx] Levothyroxine [Synthroid] 75 mcg PO 0630 tablet 04/09/17 [Rx] Saliva Stimulant [Biotene Moisturizing Rinse] 1 spray PO Q2H PRN bottle [Rx] carBAMazepine [Tegretol] 200 mg PO BID PRN tablet 04/09/17 [Rx] diazePAM [Valium] 2 mg PO HS #3 tablet 04/09/17 [Rx] hydrOXYzine pamoate [HydrOXYzine Pamoate] 25 mg PO BID PRN #6 capsule 04/09/17 [ Rx] predniSONE [PredniSONE] 10 mg PO DAILY #40 tablet 04/09/17 [Rx] Allergies/Adverse Reactions: 3 Allergy/AdvReac Type Severity Reaction Status Date / Time cephalexin [From Keflex] Allergy Difficulty Verified 04/03/17 20:14 Breathing levofloxacin [From Levaquin] Allergy Difficulty Verified 04/03/17 20:14 Breathing moxifloxacin [From Avelox] Allergy Difficulty Verified 04/03/17 20:14 Breathing Procedures/tests Complete & Pending: Procedures Performed prior 72 hours Category Date Time Status EV echocardiogram Routine Y 04/06/17 16:30 Completed Date of admission: 04/04/17 02:51 Primary care physician: Kirstin Kraus DO Consults: 04/05/17 14:45 Consult to Occupational Therapy [CONS] Routine Comment: Evaluate, develop and implement POC Reason for Consult: evaluation Consult to Physical Therapy [CONS] Routine Comment: Evaluate, develop and implement POC Reason for Consult: evaluation Discharging clinician: Dinora Machado Anticipated date of discharge: 04/09/17 - Patient Status Disposition: Transfer Inpatient Rehab Fac Condition: Good Functional capacity at discharge: uses cane/walker Overall status at discharge: patient is progressing back to baseline - Discharge Instructions Follow Up With: Kirstin Kraus DO [Primary Care Provider] - (Appointment has been webrequested. Our office wull call you with an appointment date and time within 5-7 days. If you have not recieved a call for an appointment call our office for an update. Thank You.) - Diet and Activity Activity: as per physical therapy, wear oxygen at all times Diet: diabetic diet Hospital course: Ms. Lares is a 87 year old female with a past medical history of COPD, hypothyroidism, diabetes, hypertension, anxiety, and pancreatitis. She presented to the emergency department on April 04 with complaints of worsening shortness of breath. Patient lives alone, she is legally blind, and only has home health services twice a week. She reports productive cough for a few days, with dyspnea which did not improve with home nebulizer treatments. Initially, chest x-ray was negative, however a repeat chest x-ray 2 days later when the patient was not improving revealed atelectasis versus pneumonia versus less likely edema. Initially patient was also being treated with Zithromax, I switched her antibiotic to doxycycline 100 mg by mouth twice a day, and she did appear to have some improvement. She also reports that she believes some of her difficulty breathing is related to anxiety and the Ativan helped her. Due to the fact that she takes Valium at bedtime, I only give the Ativan one time. I will be sent her to [facility] with a prescription for hydroxyzine instead. She also has been taking Solu-Medrol, have changed this to a long prednisone taper, as well as adding acetylcysteine 10% nebulizers. She reports this has given her the most relief of anything. She will continue on Mucinex, I have also added 0 tach, and Flonase to her regimen for postnasal drip and nasal congestion. She has reported a sore throat throughout the stay, she will take her Chloraseptic [place] with her. Patient had nasal swabs while she was here she was negative for the flu and viral panel was negative as well. An echocardiogram was completed due to concern for possible congestive heart failure, primarily families concern. Echocardiogram showed an LVEF of 60-65% with moderate LV DT, mild to moderate pulmonary hypertension and no significant valvular dysfunction. Patient was admitted with leukocytosis which slowly improved. White count is held steady at 8.9. Patient's hemoglobin has been around 10 throughout visit, is steady and stable. Patient was admitted also with hyponatremia, is corrected with sodium tablets and was in normal limits. Patient's renal function has remained within normal limits and stable throughout the visit. Glucose has been mildly elevated at times, primarily due to steroid use. Hemoglobin A1c was 6.7. Osmolality is within normal limits throughout the visit. His vital signs are also stable and within normal limits. Patient is requiring supplemental oxygen at 3 L to maintain sats. She will need to continue this after discharge. Patient has shown great improvement over the last 24 hours and is ready for discharge. - Time Spent with Patient Total time spent providing and/or coordinating discharge services: Less than 30 minutes - Constitutional Vitals: Temp Pulse Resp BP Pulse Ox 98.1 F 71 15 134/71 97 04/09/17 11:19 04/09/17 11:19 04/09/17 11:19 04/09/17 11:19 04/09/17 11:19 General appearance: Present: cooperative, A&O X 3, pleasant, no acute distress, answers questions appropriately - Head Head exam: Present: atraumatic, normal inspection, normocephalic - Eye Eye exam: Present: normal appearance, conjuntiva pink, sclera anicteric - Neck Neck exam general surgery: Present: supple, trachea midline. Absent: lymphadenopathy, tenderness - Respiratory Respiratory exam: Present: CTAB, wheezes. Absent: accessory muscle use, chest wall tenderness, rales, respiratory distress, rhonchi - Cardiovascular Cardiovascular exam: Present: RRR, +S1, +S2. Absent: diastolic murmur, gallop, rubs, systolic murmur - GI/Abdominal GI/Abdominal exam: Present: normal bowel sounds, soft, no peritoneal signs. Absent: distended, hepatomegaly, tenderness - Extremities Exam Extremities exam: Present: normal capillary refill, warm, radial pulses palpable and symmetrical. Absent: calf tenderness, cyanotic, pedal edema - Neurological Exam Neurological exam: Present: alert, oriented X3, no focal deficits. Absent: facial droop, speech deficit - Skin Skin exam: Present: dry, intact, normal color, warm. Absent: rash
[2017-04-09] MEDS ORDERED: FLUARIX QUAD 2017-18 36MOS UP/PF 0.5 ML SYRINGE IM ONE (14:20)
--- NOTE | 2017-04-09 15:17 | Physician Discharge Referral ---
ExtendedCare Referral Info Transfer To: [facility] Provider in Charge after Transfer: PCP Institutional Level of Care: Skilled - Diagnosis (1) Acute exacerbation of chronic obstructive airways disease Priority: Primary Status: Chronic (2) Sore throat Priority: Secondary Status: Resolved (3) Hypothyroidism Priority: Secondary Status: Chronic (4) Diabetes mellitus Priority: Secondary Status: Chronic (5) Hypertension Priority: Secondary Status: Chronic (6) Anxiety Priority: Secondary Status: Chronic (7) DVT prophylaxis Priority: Secondary Status: Acute Expected Duration of Placement: 14 days Prognosis: Good Aware of Diagnosis: Patient - Transfer Medications Prescriptions: Cetirizine HCl [Zyrtec] 10 mg PO DAILY #30 capsule diazePAM [Valium] 2 mg PO HS #3 tablet Doxycycline 100 mg PO BID #12 capsule Fluticasone Propionate Nasal [Flonase] 50 mcg NS DAILY #1 bottle Gabapentin [Neurontin] 600 mg PO TID PRN #9 capsule PRN Reason: Pain hydrOXYzine pamoate [HydrOXYzine Pamoate] 25 mg PO BID PRN #6 capsule PRN Reason: Anxiety predniSONE [PredniSONE] 10 mg PO DAILY #40 tablet Home Medications: Lisinopril 2.5 mg PO DAILY 07/01/15 [History] NIFEdipine [Nifedipine ER] 60 mg PO DAILY 07/01/15 [History] Potassium Chloride [Klor-Con Sprinkle] 10 meq PO QAM 07/01/15 [History] Sennosides/Docusate Sodium [Senna Plus] 1 - 2 each PO DAILY PRN 07/01/15 [ History] Simvastatin [Zocor] 20 mg PO HS 07/01/15 [History] Latanoprost [Xalatan] 1 drop BOTH EYES HS 04/04/17 [History] Levothyroxine Sodium 100 mcg PO QAM 04/04/17 [History] Metformin HCl [Glucophage] 1,000 mg PO HS 04/04/17 [History] hydroCHLOROthiazide [Hydrochlorothiazide] 25 mg PO DAILY 04/04/17 [History] Acetylcysteine 10% 2 ml IH [id number] #42 inhsol 04/09/17 [Rx] Albuterol Neb [Proventil Neb] 2.5 mg IH Q2H PRN #0 inhsol 04/09/17 [Rx] Benzonatate [Tessalon] 100 mg PO TID PRN capsule 04/09/17 [Rx] Cetirizine HCl [Zyrtec] 10 mg PO DAILY #30 capsule 04/09/17 [Rx] Chloraseptic [place] [Chloraseptic] 1 spray MM QID PRN bottle 04/09/17 [Rx] Doxycycline 100 mg PO BID #12 capsule 04/09/17 [Rx] Fluticasone Propionate Nasal [Flonase] 50 mcg NS DAILY #1 bottle 04/09/17 [Rx] Gabapentin [Neurontin] 600 mg PO TID PRN #9 capsule 04/09/17 [Rx] GuaiFENesin ER [Mucinex] 1,200 mg PO BID tbbp.12hr 04/09/17 [Rx] Ipratropium/Albuterol Neb [Duoneb] 3 ml IH [id number] #0 inhsol 04/09/17 [Rx] Levothyroxine [Synthroid] 75 mcg PO 0630 tablet 04/09/17 [Rx] Saliva Stimulant [Biotene Moisturizing Rinse] 1 spray PO Q2H PRN bottle [Rx] carBAMazepine [Tegretol] 200 mg PO BID PRN tablet 04/09/17 [Rx] diazePAM [Valium] 2 mg PO HS #3 tablet 04/09/17 [Rx] hydrOXYzine pamoate [HydrOXYzine Pamoate] 25 mg PO BID PRN #6 capsule 04/09/17 [ Rx] predniSONE [PredniSONE] 10 mg PO DAILY #40 tablet 04/09/17 [Rx] Allergies/Adverse Reactions: 3 Allergy/AdvReac Type Severity Reaction Status Date / Time cephalexin [From Keflex] Allergy Difficulty Verified 04/03/17 20:14 Breathing levofloxacin [From Levaquin] Allergy Difficulty Verified 04/03/17 20:14 Breathing moxifloxacin [From Avelox] Allergy Difficulty Verified 04/03/17 20:14 Breathing - Respiratory Orders Oxygen / L per min (2 liters, titrate as needed to maintain sats > 92%) Smoking Cessation: Smoking cessation has been advised. For more information, call the [place] Tobacco Quit Line at 6-846-ARGS-NOW. - Lab Orders Lab Orders: CBC, U/A, CXR yearly - Ancillary Orders May use pressure relief devices daily prn, May go on MINNA w/family/respon green party w /meds at nurse discretion PRN, May consult with Dentist, Tool Crib Clerk, Section Hand PRN - Advance Directives Code Status: Full Code CERTIFICATION: I certify that the transfer of the above named patient to an Extended Care Facility is necessary for the continuing treatment of the diagnosis listed. The above information is true and accurate reflection of patient's current condition. Confidential - Redisclosure prohibited without a patient's written consent.
== END 2017-04-09 15:30 | DRG 190 ==
LOC: 3BNU 20:11 → EMEROO 20:11 → 3BNU 04-04 00:48
PROVIDERS: ADMIT Internal Medicine; ATTEND Registered Nurse

== ENCOUNTER 2017-05-07 20:29 | Inpatient (IN) ==
[2017-05-07] MEDS ORDERED: methylPREDNISolone 125 MG/2 ML VIAL IVP ONE (20:37)
[2017-05-07] MEDS ORDERED: Ipratropium/Albuterol Neb 3 ML IH ONE (20:37)
--- NOTE | 2017-05-07 20:51 | Emergency Department Note ---
START Narrative - START START: I examined this patient and my medical decision-making was reviewed with the Resident Physician. I agree with the documented findings, disposition and treatment plan as described except to the extent set forth below. 87 year old female who was most recently admitted to the hospital about one month ago for COPD excebration and pneumonia and [facility] and then was discharged about a few days ago. [place] states that she lives alone and is currenty on 2LNC o2 at all times and that she has began to start coughing again with increasd dyspnea wihtout hypoxia at this time and more weakness and fatigue. We will work up with cardiopulmonary evaluation yanci rule out HCAP.
[2017-05-07 21:15] LABS: Basophils # 0.1 K/mcL (0.0-0.2); Eosinophils # 0.5 K/mcL (0.0-0.6); Eosinophils % 8.1 %; Hematocrit 34.6 % (35.3-44.9); Hemoglobin 11.5 g/dL (11.5-15.4); Immature Granulocytes % 0.3 % (0-4); Lymphocytes # 1.4 K/mcL (0.6-4.6); Lymphocytes % 24.4 %; Mean Corpuscular HGB Conc 33.2 g/dL (31.6-35.5); Mean Corpuscular Hemoglobin 31.8 pg (28.0-33.3); Mean Corpuscular Volume 95.6 fL (83.0-100.0); Mean Platelet Volume 8.4 fL (9.4-12.4); Monocytes # 0.9 K/mcL (0.0-1.3); Monocytes % 15.9 %; Neutrophils # 2.9 K/mcL (1.6-8.9); Platelet Count 267 K/mcL (140-400); Red Blood Count 3.62 M/mcL (3.82-4.97); Red Cell Distribution Width 11.5 % (11.5-14.5); Segmented Neutrophils % 50.3 %
[2017-05-07 21:23] LABS: INR 1.1; Prothrombin Time 11.9 Seconds (9.4-12.1)
[2017-05-07 21:28] LABS: BUN/Creatinine Ratio 9 (6-26); Blood Urea Nitrogen 6 mg/dL (7-20); Calcium 9.6 mg/dL (8.6-10.8); Carbon Dioxide 35 mEq/L (19-29); Chloride 84 mEq/L (98-109); Glucose 118 mg/dL (70-99); Osmolality,Calculated 269 (280-300); Potassium 3.6 mEq/L (3.5-4.5); Sodium 130 mEq/L (136-145); eGFR For African Americans > 60 (> 60); eGFR For Non-African Americans > 60 (> 60)
--- NOTE | 2017-05-07 22:02 | Emergency Department Note ---
Disposition Clinical Impression: COPD exacerbation Disposition: Admitted As Inpatient Condition: Good General Adult HPI - General Chief complaint: ED Shortness of Breath/Dyspnea Stated complaint: SOB Time Seen by Provider: 05/07/17 20:33 Source: patient, family, EMS Limitations: no limitations Nursing Notes Reviewed: Yes Vital Signs Reviewed: Yes - History of Present Illness HPI Narrative: Patient presents for evaluation of shortness of breath. Patient was recently in the hospital and treated for COPD. Patient was discharged to rehabilitation facility where she was doing well but she was discharged home. Patient has had difficulty time taking care of herself at home in regards to taking her nebulizers as scheduled. She is not able to see and the daughters are concerned that she is not taking medication correctly because of this. The patient has had increasing dyspnea since she was discharged from rehabilitation on Monday. Shortness of breath has gotten to the point that the daughter say she is unable to complete complete sentences due to her needing to take her next breath. Patient has been on home oxygen 2 L since her discharge. EMS picked the patient up with a pulse ox of 91% on 2 L. The patient was given a DuoNeb in the significant improved her symptoms upon arrival. Patient was not in his significant distress she was completing her sentences without difficulty. Patient did still have significant wheezing and rhonchi throughout the lungs bilaterally both posteriorly and anteriorly. Patient has denied fever at this point. Patient does have a cough that she states is nonproductive in nature. Patient will be evaluated for possible pneumonia. Pain Scale: 4 - Related Data Home Medications Medication Instructions Recorded Confirmed Lisinopril 2.5 mg PO DAILY 07/01/15 04/04/17 NIFEdipine [Nifedipine ER] 60 mg PO DAILY 07/01/15 04/04/17 Potassium Chloride [Klor-Con 10 meq PO QAM 07/01/15 04/04/17 Sprinkle] Sennosides/Docusate Sodium [Senna 1 - 2 each PO DAILY PRN 07/01/15 04/04/17 Plus] Simvastatin [Zocor] 20 mg PO 07/01/15 04/04/17 Latanoprost [Xalatan] 1 drop BOTH EYES 04/04/17 04/04/17 Levothyroxine Sodium 100 mcg PO QAM 04/04/17 04/04/17 Metformin HCl [Glucophage] 1,000 mg PO HS 04/04/17 04/04/17 hydroCHLOROthiazide 25 mg PO DAILY 04/04/17 04/04/17 [Hydrochlorothiazide] Previous Rx's Medication Instructions Recorded Acetylcysteine 10% 2 ml IH [id number] #42 inhsol 04/09/17 Albuterol Neb [Proventil Neb] 2.5 mg IH Q2H PRN #0 inhsol 04/09/17 Benzonatate [Tessalon] 100 mg PO TID PRN capsule 04/09/17 Cetirizine HCl [Zyrtec] 10 mg PO DAILY #30 capsule 04/09/17 Chloraseptic [place] [Chloraseptic] 1 spray MM QID PRN bottle 04/09/17 Doxycycline 100 mg PO BID #12 capsule 04/09/17 Fluticasone Propionate Nasal 50 mcg NS DAILY #1 bottle 04/09/17 [Flonase] Gabapentin [Neurontin] 600 mg PO TID PRN #9 capsule 04/09/17 GuaiFENesin ER [Mucinex] 1,200 mg PO BID tbbp.12hr 04/09/17 Ipratropium/Albuterol Neb [Duoneb] 3 ml IH [id number] #0 inhsol 04/09/17 Levothyroxine [Synthroid] 75 mcg PO 0630 tablet 04/09/17 Saliva Stimulant [Biotene 1 spray PO Q2H PRN bottle 04/09/17 Moisturizing Rinse] carBAMazepine [Tegretol] 200 mg PO BID PRN tablet 04/09/17 diazePAM [Valium] 2 mg PO HS #3 tablet 04/09/17 hydrOXYzine pamoate [HydrOXYzine 25 mg PO BID PRN #6 capsule 04/09/17 Pamoate] predniSONE [PredniSONE] 10 mg PO DAILY #40 tablet 04/09/17 Allergies Allergy/AdvReac Type Severity Reaction Status Date / Time cephalexin [From Keflex] Allergy Difficulty Verified 04/03/17 20:14 Breathing levofloxacin [From Levaquin] Allergy Difficulty Verified 04/03/17 20:14 Breathing moxifloxacin [From Avelox] Allergy Difficulty Verified 04/03/17 20:14 Breathing Review of Systems: GENERAL: ~No weight change, change in appetite, thirst, fever or chills. HEENT: ~No headache or blurred vision. CARDIOPULMONARY: ~Shortness of breath and cough GASTROINTESTINAL: ~No anorexia, nausea or vomiting. GENITOURINARY: ~No dysuria or pyuria. ENDOCRINE: ~No goiter, lethargy or heat/cold intolerance. HEMATOLOGY/ONCOLOGY: ~No pallor, bruising or bleeding. MUSCULOSKELETAL: ~No change in strength. No swelling. NEUROLOGIC: ~No headache or loss of consciousness. PSYCHIATRIC: ~No change in personality, affect or depression. 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 Shortness of breath with full sentences. Cardiac: Regular rate and rhythm, no murmurs, rubs or gallops Abdomen: soft, nontender, nondistended; no guarding, rebound, or tenderness to percussion Musculoskeletal: Calves symmetric, nontender, no palpable cord Skin: No rash, normal skin tone Neuro: Awake and alert Alert - General Limitations: no limitations General appearance: alert Course - Consultations Consultation #1: Discussed Dr. Remy. Patient accepted for admission. Vital Signs Temperature 97.0 F L 05/07/17 20:33 Pulse Rate 94 05/07/17 20:33 Respiratory Rate 20 05/07/17 20:33 Blood Pressure 159/85 05/07/17 20:33 O2 Sat by Pulse Oximetry 95 05/07/17 20:33 Temperature 97.0 F L 05/07/17 20:33 Pulse Rate 94 05/07/17 20:33 Respiratory Rate 19 05/07/17 21:01 Blood Pressure 159/85 05/07/17 20:33 O2 Sat by Pulse Oximetry 97 05/07/17 21:01 Oxygen Delivery Oxygen Delivery Nasal Cannula Medical Decision Making - Lab Data Result diagrams: 05/07/17 21:02 05/07/17 21:02 Lab Results 05/07/17 05/07/17 05/07/17 Range/Units 21:02 21:02 21:02 WBC 5.8 (4.3-11.1) K/mcL RBC 3.62 L (3.82-4.97) M/mcL Hgb 11.5 (11.5-15.4) g/dL Hct 34.6 L (35.3-44.9) % MCV 95.6 (83.0-100.0) fL MCH 31.8 (28.0-33.3) pg MCHC 33.2 (31.6-35.5) g/dL RDW 11.5 (11.5-14.5) % Plt Count 267 (140-400) K/mcL MPV 8.4 L (9.4-12.4) fL Immature Gran % 0.3 (0-4) % Seg Neutrophils % 50.3 % Lymphocytes % 24.4 % Monocytes % 15.9 % Eosinophils % 8.1 % Basophils % 1.0 % Neutrophils # 2.9 (1.6-8.9) K/mcL Lymphocytes # 1.4 (0.6-4.6) K/mcL Monocytes # 0.9 (0.0-1.3) K/mcL Eosinophils # 0.5 (0.0-0.6) K/mcL Basophils # 0.1 (0.0-0.2) K/mcL PT (9.4-12.1) Seconds INR Sodium 130 L (136-145) mEq/L Potassium 3.6 (3.5-4.5) mEq/L Chloride 84 L (98-109) mEq/L Carbon Dioxide 35 H (19-29) mEq/L BUN 6 L (7-20) mg/dL Creatinine 0.69 (0.57-1.11) mg/dL Est GFR ( Amer) > 60 (> 60) Est GFR (Non-Af Amer) > 60 (> 60) BUN/Creatinine Ratio 9 (6-26) Glucose 118 H (70-99) mg/dL Calculated Osmolality 269 L (280-300) Lactic Acid (0.5-2.2) mmol/L Calcium 9.6 (8.6-10.8) mg/dL Troponin I 0.00 (0-0.03) ng/mL B-Natriuretic Peptide (0-100) pg/mL 05/07/17 05/07/17 05/07/17 Range/Units 21:02 21:02 22:31 WBC (4.3-11.1) K/mcL RBC (3.82-4.97) M/mcL Hgb (11.5-15.4) g/dL Hct (35.3-44.9) % MCV (83.0-100.0) fL MCH (28.0-33.3) pg MCHC (31.6-35.5) g/dL RDW (11.5-14.5) % Plt Count (140-400) K/mcL MPV (9.4-12.4) fL Immature Gran % (0-4) % Seg Neutrophils % % Lymphocytes % % Monocytes % % Eosinophils % % Basophils % % Neutrophils # (1.6-8.9) K/mcL Lymphocytes # (0.6-4.6) K/mcL Monocytes # (0.0-1.3) K/mcL Eosinophils # (0.0-0.6) K/mcL Basophils # (0.0-0.2) K/mcL PT 11.9 (9.4-12.1) Seconds INR 1.1 Sodium (136-145) mEq/L Potassium (3.5-4.5) mEq/L Chloride (98-109) mEq/L Carbon Dioxide (19-29) mEq/L BUN (7-20) mg/dL Creatinine (0.57-1.11) mg/dL Est GFR ( Amer) (> 60) Est GFR (Non-Af Amer) (> 60) BUN/Creatinine Ratio (6-26) Glucose (70-99) mg/dL Calculated Osmolality (280-300) Lactic Acid 0.8 (0.5-2.2) mmol/L Calcium (8.6-10.8) mg/dL Troponin I (0-0.03) ng/mL B-Natriuretic Peptide 44 (0-100) pg/mL
--- NOTE | 2017-05-07 23:11 | Internal Med History&Physical ---
Date of Encounter: 05/08/17 Time of Encounter: 11:20 Assessment and Plan (1) COPD exacerbation Current visit: Yes Status: Acute Nebs, O2 supplementation, steroids, azithro ordered admit obs (2) Weakness Current visit: No Status: Acute Pt/OT consult in Am weigh and charge worker consult (3) Acute exacerbation of chronic obstructive airways disease Current visit: Yes Status: Acute As above (4) Diabetes mellitus Current visit: No Status: Chronic Home meds, FS monitoring, Qualifiers: Diabetes mellitus type: type 2 Diabetes mellitus complication status: with unspecified complications Diabetes mellitus care home insulin use: without exterminator helper termite use Qualified Code(s): E11.8 - Type 2 diabetes mellitus with unspecified complications (5) Hypertension Current visit: No Status: Chronic BP ok, continue home meds Qualifiers: Hypertension type: essential hypertension Qualified Code(s): I10 - Essential (primary) hypertension (6) Hypothyroidism Current visit: No Status: Chronic continue home synthroid. Qualifiers: Hypothyroidism type: unspecified Qualified Code(s): E03.9 - Hypothyroidism , unspecified Internal Medicine - H&P: HPI Chief complaint: SOB Admitted From: Home Plans for Post Hospital Care: Home History of present illness: Ms. Lares is a 87 year old female with a past medical history of COPD, hypothyroidism, diabetes, hypertension, anxiety, and pancreatitis who was recently admitted 04/04-04/09 for COPD exacerbation at which time she was discharged to a SNF. She then returned home on 05/05/17. Since returning home she says that she has been not feeling well, worsening dyspnea, cough. No fevers , no chills, no change in BM or urinary symptoms. Given her symptoms she was brought into the ER for further evaluation. In the Er she was started in nebs, steroids and admitted for COPD exacerbation. At this time she is feeling somewhat better but not at her baseline. Per Nursing staff, her family also was concerned that she would be difficult to take care of at home and would like to have placement upon d/c/ Past Med Surg Social Fam HX - Past Medical History Medical history: arthritis, COPD, diabetes, GERD, glaucoma, hypertension, osteoporosis, thyroid disease, other Psychiatric history: anxiety - Past Surgical History Surgical History: no surgical history - Social History Smoking Status: Light tobacco smoker Smokeless Tobacco Status: No Alcohol use: none Drug use: none - Family History Mother Living Status: Hx Family Cardiac Disorders: Yes Internal Medicine - H&P: Meds Lisinopril 2.5 mg PO DAILY 07/01/15 [History] NIFEdipine [Nifedipine ER] 60 mg PO DAILY 07/01/15 [History] Potassium Chloride [Klor-Con Sprinkle] 10 meq PO QAM 07/01/15 [History] Sennosides/Docusate Sodium [Senna Plus] 1 - 2 each PO DAILY PRN 07/01/15 [ History] Simvastatin [Zocor] 20 mg PO HS 07/01/15 [History] Latanoprost [Xalatan] 1 drop BOTH EYES HS 04/04/17 [History] Levothyroxine Sodium 100 mcg PO QAM 04/04/17 [History] Metformin HCl [Glucophage] 1,000 mg PO HS 04/04/17 [History] hydroCHLOROthiazide [Hydrochlorothiazide] 25 mg PO DAILY 04/04/17 [History] Acetylcysteine 10% 2 ml IH [id number] #42 inhsol 04/09/17 [Rx] Albuterol Neb [Proventil Neb] 2.5 mg IH Q2H PRN #0 inhsol 04/09/17 [Rx] Benzonatate [Tessalon] 100 mg PO TID PRN capsule 04/09/17 [Rx] Cetirizine HCl [Zyrtec] 10 mg PO DAILY #30 capsule 04/09/17 [Rx] Chloraseptic [place] [Chloraseptic] 1 spray MM QID PRN bottle 04/09/17 [Rx] Doxycycline 100 mg PO BID #12 capsule 04/09/17 [Rx] Fluticasone Propionate Nasal [Flonase] 50 mcg NS DAILY #1 bottle 04/09/17 [Rx] Gabapentin [Neurontin] 600 mg PO TID PRN #9 capsule 04/09/17 [Rx] GuaiFENesin ER [Mucinex] 1,200 mg PO BID tbbp.12hr 04/09/17 [Rx] Ipratropium/Albuterol Neb [Duoneb] 3 ml IH [id number] #0 inhsol 04/09/17 [Rx] Levothyroxine [Synthroid] 75 mcg PO 0630 tablet 04/09/17 [Rx] Saliva Stimulant [Biotene Moisturizing Rinse] 1 spray PO Q2H PRN bottle [Rx] carBAMazepine [Tegretol] 200 mg PO BID PRN tablet 04/09/17 [Rx] diazePAM [Valium] 2 mg PO HS #3 tablet 04/09/17 [Rx] hydrOXYzine pamoate [HydrOXYzine Pamoate] 25 mg PO BID PRN #6 capsule 04/09/17 [ Rx] predniSONE [PredniSONE] 10 mg PO DAILY #40 tablet 04/09/17 [Rx] 3 Allergy/AdvReac Type Severity Reaction Status Date / Time cephalexin [From Keflex] Allergy Difficulty Verified 04/03/17 20:14 Breathing levofloxacin [From Levaquin] Allergy Difficulty Verified 04/03/17 20:14 Breathing moxifloxacin [From Avelox] Allergy Difficulty Verified 04/03/17 20:14 Breathing All Systems PM: A 10-system review of systems was performed and is negative for pertinent findings except as documented above in the HPI. - Constitutional Vitals: Temp Pulse Resp BP Pulse Ox 97.0 F L 94 19 159/85 97 05/07/17 20:33 05/07/17 20:33 05/07/17 21:01 05/07/17 20:33 05/07/17 21:01 General appearance: Present: cooperative, A&O X 2, no acute distress - Head Head exam: Present: atraumatic, normal inspection, normocephalic - Eye Eye exam: Present: EOMI, normal appearance, PERRL - ENT ENT exam: Present: mucous membranes moist - Neck Neck exam general surgery: Present: full ROM, supple, trachea midline - Respiratory Respiratory exam: Present: wheezes (mild expiratory) - Cardiovascular Cardiovascular exam: Present: +S1, +S2 - GI/Abdominal GI/Abdominal exam: Present: normal bowel sounds, no peritoneal signs - Extremities Exam Extremities exam: Present: full ROM, normal capillary refill, normal inspection - Back Exam Back exam: Present: full ROM - Neurological Exam Neurological exam: Present: CN II-XII intact, no focal deficits Additional comments: hearing impaired - Psychiatric Psychiatric exam: Present: normal affect, normal mood - Skin Skin exam: Present: warm Internal Med - H&P Results - Labs CBC & Chem 7: 05/07/17 21:02 05/07/17 21:02 - EKG Data -: EKG Interpreted by Myself
[2017-05-07] MEDS ORDERED: Albuterol 2.5 MG/3 ML NEBULIZER IH PRN (23:15)
[2017-05-07] MEDS ORDERED: Naloxone 0.4 MG/ML INJ IVP PRN (23:15)
[2017-05-07] MEDS ORDERED: Ondansetron 4 MG/2 ML VIAL IVP PRN (23:15)
[2017-05-07] MEDS ORDERED: Saliva Stimulant 100ml BOTTLE PO PRN (23:20)
[2017-05-07] MEDS ORDERED: Sennosides/Docusate Sodium TABLET PO PRN (23:20)
[2017-05-07] MEDS ORDERED: Benzonatate 100 MG CAPSULE PO PRN (23:22)
[2017-05-07] MEDS ORDERED: Gabapentin 300 MG CAPSULE PO PRN (23:22)
[2017-05-07] MEDS ORDERED: carBAMazepine 200 MG TABLET PO PRN (23:22)
[2017-05-08] MEDS ORDERED: methylPREDNISolone 125 MG/2 ML VIAL IVP SCH
[2017-05-08] MEDS: Ipratropium Neb 0.5 MG NEBULIZER IH SCH ×6 (00:07→20:00)
[2017-05-08] MEDS: diazePAM 2 MG TABLET PO SCH ×2 (01:05→21:16)
[2017-05-08] MEDS: *HR* Heparin 5,000 UNIT/ML VIAL SQ SCH ×2 (04:09→16:37)
[2017-05-08] MEDS: methylPREDNISolone 125 MG/2 ML VIAL IVP SCH ×4 (04:09→21:16)
[2017-05-08 05:08] LABS: Basophils % 0.3 %; Hemoglobin 10.7 g/dL (11.5-15.4); Immature Granulocytes % 0.3 % (0-4); Lymphocytes # 0.5 K/mcL (0.6-4.6); Lymphocytes % 14.7 %; Mean Corpuscular HGB Conc 33.4 g/dL (31.6-35.5); Mean Corpuscular Volume 95.8 fL (83.0-100.0); Mean Platelet Volume 8.6 fL (9.4-12.4); Monocytes # 0.1 K/mcL (0.0-1.3); Neutrophils # 2.5 K/mcL (1.6-8.9); Platelet Count 258 K/mcL (140-400); Red Blood Count 3.34 M/mcL (3.82-4.97); Red Cell Distribution Width 11.5 % (11.5-14.5); Segmented Neutrophils % 82.7 %
[2017-05-08 05:42] LABS: Alanine Aminotransferase 12 Units/L (0-55); Albumin 3.2 g/dL (3.5-5.0); Albumin/Globulin Ratio 0.9 (1.1-2.2); Alkaline Phosphatase 74 Units/L (38-126); Aspartate Amino Transferase 19 Units/L (5-34); BUN/Creatinine Ratio 9 (6-26); Bilirubin,Total 0.2 mg/dL (0.2-1.2); Blood Urea Nitrogen 7 mg/dL (7-20); Calcium 9.3 mg/dL (8.6-10.8); Carbon Dioxide 35 mEq/L (19-29); Chloride 86 mEq/L (98-109); Globulin 3.5 g/dL (2.4-3.5); Glucose 197 mg/dL (70-99); Osmolality,Calculated 271 (280-300); Potassium 4.2 mEq/L (3.5-4.5); Sodium 129 mEq/L (136-145); Total Protein 6.7 g/dL (6.0-8.3); eGFR For African Americans > 60 (> 60); eGFR For Non-African Americans > 60 (> 60)
[2017-05-08] MEDS: hydroCHLOROthiazide 25 MG TABLET PO SCH (08:46)
[2017-05-08] MEDS: Azithromycin 250 MG TABLET PO SCH (08:46)
[2017-05-08] MEDS: NIFEdipine XL (24 HR) 60 MG TAB.ER.24 PO SCH (08:46)
[2017-05-08] MEDS: Acetaminophen 325 MG TABLET PO PRN ×2 (10:47→16:37)
--- NOTE | 2017-05-08 16:51 | Electrocardiograph Report ---
[address] [place] [address] Test Date: 2017-05-07 Pat Name: [facility] Department: 104 Room: 3B Gender: F Skull Splitter: VANDANA : 1930 Requested By: Adrián Morrell Order Number: [id number] Reading MD: Lisa Knutson Measurements Intervals [place] Rate: 84 P: 52 ME: 165 QRS: 23 QRSD: 118 T: 61 QT: 374 QTc: 415 Interpretive Statements SINUS RHYTHM INTRAVENTRICULAR CONDUCTION DELAY NONSPECIFIC T-WAVE ABNORMALITY Electronically Signed On 05-08-2017 16:50:20 EDT by Lisa Knutson
--- NOTE | 2017-05-08 17:57 | Internal Med Progress Note ---
Date of Encounter: 05/08/17 Time of Encounter: 14:35 - Assessment and plan (1) Acute exacerbation of chronic obstructive airways disease Current Visit: Yes Status: Acute Assessment and plan: Pt was inpt here for a week at the end of March. Pt was sent to [facility] for rehab and was still getting breathing treatments at discharge. Daughter states that she insisted that the pt be sent home with a nebulizer and medication, however, pt was unable to see the medication well enough to do the breathing treatments herself, and despite the assistance of family, pt became SOB, prompting her return to the ER. Lungs are diminished throughout. Pt has dry, hacking, non-productive cough and reports ROTHMAN. Continue nebulizer treatments Tessalon pearls for cough 02 as needed to maintain sats > 92% Zithromax 500mg po daily IV Solumedrol 60mg IVP every 6 hours Chest X-Ray 05/07/17 20:38 IMPRESSION: 1. Small right pleural effusion and mild bibasilar atelectasis. No focal consolidation identified. 2. Mild central pulmonary vascular congestion. D/ / Joe Burr MD / Joe Burr MD Interpreting Provider: Joe Burr MD (2) Hypothyroidism Current Visit: Yes Status: Chronic Assessment and plan: Chronic. continue home medications. Qualifiers: Hypothyroidism type: unspecified Qualified Code(s): E03.9 - Hypothyroidism , unspecified (3) Anxiety Current Visit: Yes Status: Chronic Assessment and plan: Chronic. Continue home dose of Valium (4) DVT prophylaxis Current Visit: Yes Status: Acute Assessment and plan: Heparin SQ - Time Spent With Patient less than 15 minutes - Subjective Interval history: Pt was seen and assessed at 1435. She is alert, awake, oriented. She denies headache, n/v/d, chest pain. She reports SOB after being home from ECF/rehab for 2 days. Pt was physically unable to care for herself due to not being able to do her own breathing treatments at home. Due to this she became increasingly SOB, prompting return to ER. PT/OT on board, pt agreeable to ECF placement temproarily for rehab. - Constitutional Vitals: Temp Pulse Resp BP Pulse Ox 97.4 F L 79 17 144/71 95 05/08/17 15:34 05/08/17 15:34 05/08/17 15:34 05/08/17 15:34 05/08/17 15:34 General appearance: Present: cooperative, A&O X 2, pleasant, no acute distress, answers questions appropriately - Head Head exam: Present: normal inspection - Eye Eye exam: Present: conjuntiva pink, sclera anicteric - Neck Neck exam general surgery: Present: normal inspection, supple, trachea midline. Absent: lymphadenopathy, tenderness - Respiratory Respiratory exam: Present: decreased breath sounds, CTAB. Absent: accessory muscle use, chest wall tenderness, rales, rhonchi, wheezes - Cardiovascular Cardiovascular exam: Present: RRR, +S1, +S2. Absent: diastolic murmur, gallop, rubs, systolic murmur - GI/Abdominal GI/Abdominal exam: Present: normal bowel sounds, soft, no peritoneal signs. Absent: distended, hepatomegaly, tenderness - Extremities Exam Extremities exam: Present: normal capillary refill, normal inspection, warm, radial pulses palpable and symmetrical. Absent: calf tenderness, cyanotic, pedal edema, tenderness - Neurological Exam Neurological exam: Present: alert, oriented X3, no focal deficits. Absent: pronater drift, facial droop, speech deficit - Skin Skin exam: Present: dry, intact, normal color, warm. Absent: rash Internal Medicine: Result - Labs CBC & Chem 7: 05/08/17 04:43 05/08/17 04:43 Labs: Short CBC 05/08/17 Range/Units 04:43 WBC 3.1 L (4.3-11.1) K/mcL Hgb 10.7 L (11.5-15.4) g/dL Hct 32.0 L (35.3-44.9) % Plt Count 258 (140-400) K/mcL Neutrophils # 2.5 (1.6-8.9) K/mcL BMP 05/08/17 04:43 Sodium 129 L Potassium 4.2 Chloride 86 L Carbon Dioxide 35 H BUN 7 Creatinine 0.78 Glucose 197 H Calcium 9.3 Liver Function 05/08/17 Range/Units 04:43 Total Bilirubin 0.2 (0.2-1.2) mg/dL AST 19 (5-34) Units/L ALT 12 (0-55) Units/L Alkaline Phosphatase 74 (38-126) Units/L Albumin 3.2 L (3.5-5.0) g/dL - ABG Interpretation ABG results: PT/INR, D-dimer PT 11.9 Seconds (9.4-12.1) 05/07/17 21:02 Consult Discharge Plan - Plan Referrals: Kirstin Kraus DO [Primary Care Provider] -
[2017-05-08] MEDS ORDERED: diazePAM 2 MG TABLET PO SCH (21:00)
[2017-05-08] MEDS: Latanoprost 2.5 ML BOTTLE BOTH EYES SCH (21:17)
[2017-05-09] MEDS: Ipratropium Neb 0.5 MG NEBULIZER IH SCH ×6 (00:51→20:29)
[2017-05-09] MEDS: methylPREDNISolone 125 MG/2 ML VIAL IVP SCH ×4 (03:02→21:15)
[2017-05-09 03:09] LABS: Basophils % 0.1 %; Hematocrit 29.7 % (35.3-44.9); Immature Granulocytes % 0.4 % (0-4); Lymphocytes # 0.7 K/mcL (0.6-4.6); Lymphocytes % 7.3 %; Mean Corpuscular HGB Conc 33.7 g/dL (31.6-35.5); Mean Corpuscular Hemoglobin 31.6 pg (28.0-33.3); Mean Platelet Volume 8.9 fL (9.4-12.4); Monocytes # 0.4 K/mcL (0.0-1.3); Monocytes % 3.9 %; Neutrophils # 8.4 K/mcL (1.6-8.9); Platelet Count 254 K/mcL (140-400); Red Blood Count 3.16 M/mcL (3.82-4.97); Red Cell Distribution Width 11.2 % (11.5-14.5); Segmented Neutrophils % 88.3 %
[2017-05-09] MEDS: Acetaminophen 325 MG TABLET PO PRN ×2 (03:15→09:40)
[2017-05-09 03:18] LABS: Bilirubin,Urine Negative (Negative); Blood,Urine Negative (Negative); Clarity,Urine Clear (Clear); Color,Urine Yellow (Yellow); Glucose,Urine (UA) 100 mg/dL (Normal); Ketones,Urine Negative (Negative); Leukocyte Esterase,Urine Negative (Negative); Nitrite,Urine Negative (Negative); PH,Urine 6.5 pH Units (5.0-8.0); Protein,Urine Trace mg/dL (Neg-Trace); Specific Gravity,Urine 1.014 (1.010-1.025); Urobilinogen,Urine Normal (Normal)
[2017-05-09 03:21] LABS: BUN/Creatinine Ratio 24 (6-26); Carbon Dioxide 36 mEq/L (19-29); Chloride 82 mEq/L (98-109); Glucose 170 mg/dL (70-99); Osmolality,Calculated 264 (280-300); Potassium 4.3 mEq/L (3.5-4.5); Sodium 124 mEq/L (136-145); eGFR For African Americans > 60 (> 60); eGFR For Non-African Americans > 60 (> 60)
[2017-05-09 03:21] LABS: Bacteria,Urine None Seen per hpf (None-Few); Hyaline Casts,Urine None Seen per lpf (None-Few); Squamous Epithelial Cell,Urine Moderate per lpf (None-Few); WBC,Urine 0-3 per hpf (0-3)
[2017-05-09 03:30] LABS: Blood Urea Nitrogen 18 mg/dL (7-20)
[2017-05-09] MEDS: *HR* Heparin 5,000 UNIT/ML VIAL SQ SCH ×2 (05:48→21:13)
[2017-05-09] MEDS: Azithromycin 250 MG TABLET PO SCH (09:26)
[2017-05-09] MEDS: hydroCHLOROthiazide 25 MG TABLET PO SCH (09:27)
[2017-05-09] MEDS: NIFEdipine XL (24 HR) 60 MG TAB.ER.24 PO SCH (09:30)
--- NOTE | 2017-05-09 14:07 | Internal Med Progress Note ---
Date of Encounter: 05/09/17 Time of Encounter: 14:03 - Assessment and plan (1) Acute exacerbation of chronic obstructive airways disease Current Visit: Yes Status: Acute Assessment and plan: Ketty jacobo is a 87-year-old female with past medical history COPD, diabetes, hypertension and hypothyroidism who presented to [facility] on 05/07/2017 with complaints of shortness of breath. She was found to be in a COPD exacerbation was admitted for ATB and steroids. 1. Acute COPD exacerbation: wears O2 [id number] at home. Recently hospitalized for COPD exacerbation; was discharge home from [facility] and not able to use nebulizer machine. Now with worsening shortness of breath and wheezing. Continue IV steroids, ATB. Respiratory PCR, sputum culture, chest CT pending. 2. Hyponatremia: Na 124; appears neurologically intact. Home HCTZ stopped. Give one-time IV bolus followed by fluid restriction. Monitor repeat Na level 3. Diabetes: per hx. holding home oral hypoglycemics. SSI. Monitor blood sugar and titrate PRN 4. Essential hypertension: per hx. BP controlled. Continue home BP medications with the exception of HCTZ as noted above. Monitor BP and titrate PRN 5. Hypothyroidism: per hx. Cont home levothyroxine 6. DVT prophylaxis: heparin (2) Hyponatremia Current Visit: Yes Status: Acute (3) Diabetes mellitus Current Visit: No Status: Chronic Qualifiers: Diabetes mellitus type: type 2 Diabetes mellitus complication status: with unspecified complications Diabetes mellitus jail insulin use: without jail use Qualified Code(s): E11.8 - Type 2 diabetes mellitus with unspecified complications (4) Hypertension Current Visit: No Status: Chronic Qualifiers: Hypertension type: essential hypertension Qualified Code(s): I10 - Essential (primary) hypertension - Subjective Interval history: Seen and examned at bedside, patient is new to me. The patient pain from chart review and patient report. Significant her bedside, eating lunch. she has no complaints. Says it shortness of breath is improved. Daughter at bedside and updated. - Constitutional Vitals: Temp Pulse Resp BP Pulse Ox 97.7 F 67 16 121/77 96 05/09/17 10:39 05/09/17 10:39 05/09/17 10:39 05/09/17 10:39 05/09/17 10:39 General appearance: Present: cooperative, A&O X 2, pleasant, no acute distress, answers questions appropriately - Head Head exam: Present: atraumatic, normocephalic - Eye Eye exam: Present: PERRL, conjuntiva pink, sclera anicteric Pupils: Present: PERRL Additional comments: legally blind - Neck Neck exam general surgery: Present: supple, trachea midline. Absent: lymphadenopathy - Respiratory Respiratory exam: Present: CTAB. Absent: accessory muscle use, rales, rhonchi, wheezes - Cardiovascular Cardiovascular exam: Present: RRR, +S1, +S2. Absent: diastolic murmur, gallop, rubs, systolic murmur - GI/Abdominal GI/Abdominal exam: Present: normal bowel sounds, soft, no peritoneal signs. Absent: distended, tenderness - Extremities Exam Extremities exam: Present: warm, radial pulses palpable and symmetrical. Absent : calf tenderness, cyanotic, pedal edema - Neurological Exam Neurological exam: Present: CN II-XII intact, oriented X3, no focal deficits. Absent: pronater drift, facial droop, speech deficit - Skin Skin exam: Present: dry, intact Internal Medicine: Result - Labs CBC & Chem 7: 05/09/17 02:43 05/09/17 02:43 Labs: Short CBC 05/09/17 Range/Units 02:43 WBC 9.5 D (4.3-11.1) K/mcL Hgb 10.0 L (11.5-15.4) g/dL Hct 29.7 L (35.3-44.9) % Plt Count 254 (140-400) K/mcL Neutrophils # 8.4 (1.6-8.9) K/mcL BMP 05/09/17 02:43 Sodium 124 L Potassium 4.3 Chloride 82 L Carbon Dioxide 36 H BUN 18 D Creatinine 0.75 Glucose 170 H Calcium 9.0 Urine 05/09/17 Range/Units 03:03 Urine Color Yellow (Yellow) Urine Clarity Clear (Clear) Urine pH 6.5 (5.0-8.0) pH Units Ur Specific [place] 1.014 (1.010-1.025) Urine Protein Trace (Neg-Trace) mg/dL Urine Glucose (UA) 100 H (Normal) mg/dL - ABG Interpretation ABG results: PT/INR, D-dimer PT 11.9 Seconds (9.4-12.1) 10/29/17 21:02 Consult Discharge Plan - Plan Instructions: Hypothyroidism (DC), Chronic Obstructive Pulmonary Disease (DC), Anxiety (DC) Referrals: Kirstin Kraus DO [Primary Care Provider] -
[2017-05-09] MEDS ORDERED: 0.9 % Sodium Chloride 500 ML IVC ONE (14:12)
[2017-05-09] MEDS: Latanoprost 2.5 ML BOTTLE BOTH EYES SCH (21:14)
[2017-05-09] MEDS: diazePAM 2 MG TABLET PO SCH (21:15)
[2017-05-10] MEDS: Ipratropium Neb 0.5 MG NEBULIZER IH SCH ×7 (00:28→23:15)
[2017-05-10] MEDS: methylPREDNISolone 125 MG/2 ML VIAL IVP SCH ×4 (03:18→21:02)
[2017-05-10 04:26] LABS: Hematocrit 31.3 % (35.3-44.9); Hemoglobin 10.7 g/dL (11.5-15.4); Mean Corpuscular HGB Conc 34.2 g/dL (31.6-35.5); Mean Corpuscular Hemoglobin 32.2 pg (28.0-33.3); Mean Corpuscular Volume 94.3 fL (83.0-100.0); Mean Platelet Volume 8.9 fL (9.4-12.4); Platelet Count 269 K/mcL (140-400); Red Blood Count 3.32 M/mcL (3.82-4.97); Red Cell Distribution Width 11.6 % (11.5-14.5)
[2017-05-10 04:49] LABS: Alanine Aminotransferase 13 Units/L (0-55); Albumin 3.4 g/dL (3.5-5.0); Albumin/Globulin Ratio 1.1 (1.1-2.2); Alkaline Phosphatase 63 Units/L (38-126); Aspartate Amino Transferase 19 Units/L (5-34); BUN/Creatinine Ratio 21 (6-26); Bilirubin,Total 0.3 mg/dL (0.2-1.2); Blood Urea Nitrogen 16 mg/dL (7-20); Calcium 9.4 mg/dL (8.6-10.8); Carbon Dioxide 36 mEq/L (19-29); Chloride 85 mEq/L (98-109); Globulin 3.2 g/dL (2.4-3.5); Glucose 184 mg/dL (70-99); Osmolality,Calculated 272 (280-300); Sodium 128 mEq/L (136-145); Total Protein 6.6 g/dL (6.0-8.3); eGFR For African Americans > 60 (> 60); eGFR For Non-African Americans > 60 (> 60)
[2017-05-10] MEDS: *HR* Heparin 5,000 UNIT/ML VIAL SQ SCH ×3 (05:37→21:02)
[2017-05-10] MEDS: NIFEdipine XL (24 HR) 60 MG TAB.ER.24 PO SCH (08:10)
[2017-05-10] MEDS: Azithromycin 250 MG TABLET PO SCH (08:10)
--- NOTE | 2017-05-10 11:18 | Discharge Summary ---
Date of Encounter: 05/10/17 Time of Encounter: 11:18 - Discharge Diagnosis (1) Acute exacerbation of chronic obstructive airways disease Priority: Primary Status: Acute Comments: Ketty jacobo is a 87-year-old female with past medical history COPD, diabetes, hypertension and hypothyroidism who presented to [facility] on 05/07/2017 with complaints of shortness of breath. She was found to be in a COPD exacerbation was admitted for ATB and steroids. Her sx's improved with IV steroids and ATB. Discussed case with Dr. Dunne and will keep overnight and give IV fluids. Monitor repeat sodium level in the morning and if improved and discharged to SNF. 1. Acute COPD exacerbation: wears O2 [id number] at home. Recently hospitalized for COPD exacerbation; was discharged home from SNF and not able to use nebulizer machine. Now with worsening shortness of breath and wheezing. IV steroids, ATB, Blazers. 2. Hyponatremia: Na 124 on 05/09/2017. Chart reviewed and appears chronic. Patient remained neurologically intact. Home HCTZ stopped. Na mildly improved with IV fluids, fluid restriction. Cont IV fluids. Repeat 3. Diabetes: per hx. Resume home oral hypoglycemics. She may need SSI or increase in metformin while on steroids. Blood sugar can be monitored at SNF. 4. Essential hypertension: per hx. BP controlled. Continue home JOSE (HCTZ stopped with hyponatremia). BP can be monitored at SNF 5. Hypothyroidism: per hx. Cont home levothyroxine (2) Hyponatremia Priority: Primary Status: Acute (3) Diabetes mellitus Priority: Primary Status: Chronic Qualifiers: Diabetes mellitus type: type 2 Diabetes mellitus complication status: with unspecified complications Diabetes mellitus prison insulin use: without terminal superintendent use Qualified Code(s): E11.8 - Type 2 diabetes mellitus with unspecified complications (4) Hypertension Priority: Primary Status: Chronic Qualifiers: Hypertension type: essential hypertension Qualified Code(s): I10 - Essential (primary) hypertension - Discharge Medications Prescriptions: predniSONE [PredniSONE] 40 mg PO DAILY #5 tablet Home Medications: Lisinopril 2.5 mg PO DAILY 07/01/15 [History] NIFEdipine [Nifedipine ER] 60 mg PO DAILY 07/01/15 [History] Sennosides/Docusate Sodium [Senna Plus] 1 - 2 each PO DAILY PRN 12/23/15 [ History] Simvastatin [Zocor] 20 mg PO HS 07/01/15 [History] Latanoprost [Xalatan] 1 drop BOTH EYES HS 04/04/17 [History] Acetylcysteine 10% 2 ml IH [id number] #42 inhsol 04/09/17 [Rx] Albuterol Neb [Proventil Neb] 2.5 mg IH Q2H PRN #0 inhsol 04/09/17 [Rx] Benzonatate [Tessalon] 100 mg PO TID PRN capsule 04/09/17 [Rx] Cetirizine HCl [Zyrtec] 10 mg PO DAILY #30 capsule 04/09/17 [Rx] Chloraseptic [place] [Chloraseptic] 1 spray MM QID PRN bottle 04/09/17 [Rx] Fluticasone Propionate Nasal [Flonase] 50 mcg NS DAILY #1 bottle 04/09/17 [Rx] Ipratropium/Albuterol Neb [Duoneb] 3 ml IH [id number] #0 inhsol 04/09/17 [Rx] Levothyroxine [Synthroid] 75 mcg PO 0630 tablet 04/09/17 [Rx] Saliva Stimulant [Biotene Moisturizing Rinse] 1 spray PO Q2H PRN bottle [Rx] carBAMazepine [Tegretol] 200 mg PO BID PRN tablet 04/09/17 [Rx] diazePAM [Valium] 2 mg PO HS #3 tablet 04/09/17 [Rx] hydrOXYzine pamoate [HydrOXYzine Pamoate] 25 mg PO BID PRN #6 capsule 04/09/17 [ Rx] metFORMIN [Glucophage] 500 mg PO QAM 05/08/17 [History] Azithromycin [Zithromax] 250 mg PO DAILY #0 tablet 05/10/17 [Rx] predniSONE [PredniSONE] 40 mg PO DAILY #5 tablet 05/10/17 [Rx] Allergies/Adverse Reactions: 3 Allergy/AdvReac Type Severity Reaction Status Date / Time cephalexin [From Keflex] Allergy Difficulty Verified 04/03/17 20:14 Breathing levofloxacin [From Levaquin] Allergy Difficulty Verified 04/03/17 20:14 Breathing moxifloxacin [From Avelox] Allergy Difficulty Verified 04/03/17 20:14 Breathing Procedures/tests Complete & Pending: Procedures Performed prior 72 hours Category Date Time Status CT chest w/o contrast [CT chest wo con] [CT] Routine Cat Scan 05/09/17 14:45 Completed Date of admission: 05/09/17 12:51 Primary care physician: Kirstin Kraus DO Discharging clinician: Allison Soria Anticipated date of discharge: 05/10/17 - Patient Status Disposition: Transfer LTC Condition: Good Functional capacity at discharge: uses cane/walker Overall status at discharge: patient is progressing back to baseline - Discharge Instructions Instructions: Hypothyroidism (DC), Chronic Obstructive Pulmonary Disease (DC), Anxiety (DC) Follow Up With: Kirstin Kraus DO [Primary Care Provider] - - Diet and Activity Activity: ambulate only with your walker, as per physical therapy Diet: diabetic diet, low fat, low cholesterol Interval History: Seen and examined at bedside, says she feels more short of breath this morning. No chest pain. She is anxious and somewhat nervous about discharge. Daughter at bedside and updated. Hospital course: Ms. Jacobo is a 87 year old female - Time Spent with Patient Total time spent providing and/or coordinating discharge services: - Constitutional Vitals: Temp Pulse Resp BP Pulse Ox 97.9 F 60 16 122/66 90 05/10/17 06:37 05/10/17 06:37 05/10/17 07:39 05/10/17 06:37 05/10/17 07:39 General appearance: Present: cooperative, A&O X 2, pleasant, no acute distress, answers questions appropriately - Head Head exam: Present: atraumatic, normocephalic - Eye Eye exam: Present: PERRL, conjuntiva pink, sclera anicteric Pupils: Present: PERRL - Neck Neck exam general surgery: Present: supple, trachea midline. Absent: lymphadenopathy - Respiratory Respiratory exam: Present: accessory muscle use, rhonchi, wheezes. Absent: rales - Cardiovascular Cardiovascular exam: Present: RRR, +S1, +S2. Absent: diastolic murmur, gallop, rubs, systolic murmur - GI/Abdominal GI/Abdominal exam: Present: normal bowel sounds, soft, no peritoneal signs. Absent: distended, tenderness - Extremities Exam Extremities exam: Present: warm, radial pulses palpable and symmetrical. Absent : calf tenderness, cyanotic, pedal edema - Neurological Exam Neurological exam: Present: CN II-XII intact, oriented X3, no focal deficits. Absent: pronater drift, facial droop, speech deficit - Skin Skin exam: Present: dry, intact
[2017-05-10 13:56] LABS: Adenovirus Not Detected (Not Detect); Bordetella Pertussis Not Detected (Not Detect); Chlamydophila pneumoniae Not Detected (Not Detect); Coronavirus 229E Not Detected (Not Detect); Coronavirus HKU1 Not Detected (Not Detect); Coronavirus NL63 Not Detected (Not Detect); Coronavirus OC43 Not Detected (Not Detect); Human Metapneumovirus Not Detected (Not Detect); Human Rhinovirus/Enterovirus Not Detected (Not Detect); Influenza A Subtype 2009 H1 Not Detected (Not Detect); Influenza A Untypeable Not Detected (Not Detect); Influenza B Not Detected (Not Detect); Mycoplasma pneumoniae Not Detected (Not Detect); Parainfluenza Virus 1 Not Detected (Not Detect); Parainfluenza Virus 2 Not Detected (Not Detect); Parainfluenza Virus 3 Not Detected (Not Detect); Parainfluenza Virus 4 Not Detected (Not Detect); Respiratory Syncytial Virus Not Detected (Not Detect)
[2017-05-10] MEDS ORDERED: *HR* Morphine 2 MG/ML SYRINGE ONE (15:33)
[2017-05-10] MEDS: 0.9 % Sodium Chloride 1,000 ML IVC SCH (16:30)
[2017-05-10] MEDS: Latanoprost 2.5 ML BOTTLE BOTH EYES SCH (21:03)
[2017-05-10] MEDS: diazePAM 2 MG TABLET PO SCH (21:03)
[2017-05-11] MEDS: methylPREDNISolone 125 MG/2 ML VIAL IVP SCH (03:15)
[2017-05-11] MEDS: Ipratropium Neb 0.5 MG NEBULIZER IH SCH ×2 (03:59→07:52)
[2017-05-11 04:49] LABS: Hematocrit 31.4 % (35.3-44.9); Hemoglobin 10.8 g/dL (11.5-15.4); Mean Corpuscular HGB Conc 34.4 g/dL (31.6-35.5); Mean Corpuscular Volume 93.2 fL (83.0-100.0); Mean Platelet Volume 9.2 fL (9.4-12.4); Platelet Count 267 K/mcL (140-400); Red Blood Count 3.37 M/mcL (3.82-4.97); Red Cell Distribution Width 11.7 % (11.5-14.5)
[2017-05-11 05:20] LABS: Alanine Aminotransferase 14 Units/L (0-55); Albumin/Globulin Ratio 0.9 (1.1-2.2); Alkaline Phosphatase 62 Units/L (38-126); Aspartate Amino Transferase 15 Units/L (5-34); BUN/Creatinine Ratio 21 (6-26); Bilirubin,Total 0.3 mg/dL (0.2-1.2); Blood Urea Nitrogen 15 mg/dL (7-20); Calcium 8.9 mg/dL (8.6-10.8); Carbon Dioxide 34 mEq/L (19-29); Chloride 93 mEq/L (98-109); Globulin 3.3 g/dL (2.4-3.5); Glucose 178 mg/dL (70-99); Osmolality,Calculated 285 (280-300); Potassium 3.7 mEq/L (3.5-4.5); Total Protein 6.3 g/dL (6.0-8.3); eGFR For African Americans > 60 (> 60); eGFR For Non-African Americans > 60 (> 60)
[2017-05-11 05:24] LABS: Sodium 135 mEq/L (136-145)
[2017-05-11] MEDS: *HR* Heparin 5,000 UNIT/ML VIAL SQ SCH (05:49)
[2017-05-11] MEDS: 0.9 % Sodium Chloride 1,000 ML IVC SCH (05:49)
[2017-05-11 07:02] VITALS: BP 144/73
--- NOTE | 2017-05-11 09:39 | Discharge Summary ---
Date of Encounter: 05/11/17 Time of Encounter: 09:25 - Discharge Diagnosis (1) Acute exacerbation of chronic obstructive airways disease Priority: Primary Status: Acute Comments: Ketty jacobo is a 87-year-old female with past medical history COPD, diabetes, hypertension and hypothyroidism who presented to [facility] on 05/07/2017 with complaints of shortness of breath. She was found to be in a COPD exacerbation was admitted for ATB and steroids. Her sx's improved with IV steroids and ATB. She was discharged to [facility] facility on 05/11/2017 in stable condition. 1. Acute COPD exacerbation: wears O2 [id number] at home. Recently discharged home from SNF and was not able to use nebulizer machine. Presented with worsening shortness of breath and wheezing. Resp PCR negative. CXR without infiltrate/opacity. Symptoms improved with IV steroids, ATB and nebulizers. Discharge with z-pack and steroid burst. 2. Hyponatremia: Na 124 on 05/09/2017. Chart reviewed and appears somewhat chronic. Patient remained neurologically intact. Home HCTZ stopped. Na normalized with IV fluids. Na 135 at discharge. Recommend repeat CMP and 1-3 days at SNF. 3. Diabetes: per hx. Resume home oral hypoglycemics. She may need SSI or increase in metformin while on steroids. Blood sugar can be monitored at SNF. 4. Essential hypertension: per hx. BP controlled. Continue home JOSE. HCTZ stopped with hyponatremia. BP can be monitored at SNF. 5. Hypothyroidism: per hx. Cont home levothyroxine (2) Hyponatremia Priority: Primary Status: Resolved (3) Diabetes mellitus Priority: Primary Status: Chronic Qualifiers: Diabetes mellitus type: type 2 Diabetes mellitus complication status: with unspecified complications Diabetes mellitus rn long term care insulin use: without rn long term care use Qualified Code(s): E11.8 - Type 2 diabetes mellitus with unspecified complications (4) Hypertension Priority: Primary Status: Chronic Qualifiers: Hypertension type: essential hypertension Qualified Code(s): I10 - Essential (primary) hypertension - Discharge Medications Prescriptions: predniSONE [PredniSONE] 40 mg PO DAILY #5 tablet Home Medications: Lisinopril 2.5 mg PO DAILY 07/01/15 [History] NIFEdipine [Nifedipine ER] 60 mg PO DAILY 07/01/15 [History] Sennosides/Docusate Sodium [Senna Plus] 1 - 2 each PO DAILY PRN 07/01/15 [ History] Simvastatin [Zocor] 20 mg PO HS 07/01/15 [History] Latanoprost [Xalatan] 1 drop BOTH EYES HS 04/04/17 [History] Acetylcysteine 10% 2 ml IH [id number] #42 inhsol 04/09/17 [Rx] Albuterol Neb [Proventil Neb] 2.5 mg IH Q2H PRN #0 inhsol 04/09/17 [Rx] Benzonatate [Tessalon] 100 mg PO TID PRN capsule 04/09/17 [Rx] Cetirizine HCl [Zyrtec] 10 mg PO DAILY #30 capsule 04/09/17 [Rx] Chloraseptic [place] [Chloraseptic] 1 spray MM QID PRN bottle 04/09/17 [Rx] Fluticasone Propionate Nasal [Flonase] 50 mcg NS DAILY #1 bottle 04/09/17 [Rx] Ipratropium/Albuterol Neb [Duoneb] 3 ml IH [id number] #0 inhsol 04/09/17 [Rx] Levothyroxine [Synthroid] 75 mcg PO 0630 tablet 04/09/17 [Rx] Saliva Stimulant [Biotene Moisturizing Rinse] 1 spray PO Q2H PRN bottle [Rx] carBAMazepine [Tegretol] 200 mg PO BID PRN tablet 04/09/17 [Rx] hydrOXYzine pamoate [HydrOXYzine Pamoate] 25 mg PO BID PRN #6 capsule 04/09/17 [ Rx] metFORMIN [Glucophage] 500 mg PO QAM 05/08/17 [History] predniSONE [PredniSONE] 40 mg PO DAILY #5 tablet 05/10/17 [Rx] Azithromycin [Azithromycin 6-Tab Pack] 250 mg PO PER PKG DI #6 tab 05/11/17 [Rx] diazePAM [Valium] 2 mg PO HS #7 tablet 05/11/17 [Rx] Allergies/Adverse Reactions: 3 Allergy/AdvReac Type Severity Reaction Status Date / Time cephalexin [From Keflex] Allergy Difficulty Verified 04/03/17 20:14 Breathing levofloxacin [From Levaquin] Allergy Difficulty Verified 04/03/17 20:14 Breathing moxifloxacin [From Avelox] Allergy Difficulty Verified 04/03/17 20:14 Breathing Procedures/tests Complete & Pending: Procedures Performed prior 72 hours Category Date Time Status CT chest w/o contrast [CT chest wo con] [CT] Routine Cat Scan 05/09/17 14:45 Completed Date of admission: 05/09/17 12:51 Primary care physician: Kirstin Kraus DO Discharging clinician: Allison Soria Anticipated date of discharge: 05/11/17 - Patient Status Disposition: Transfer LTC Condition: Good Functional capacity at discharge: uses cane/walker Overall status at discharge: patient is progressing back to baseline - Discharge Instructions Instructions: Hypothyroidism (DC), Chronic Obstructive Pulmonary Disease (DC), Anxiety (DC) Follow Up With: Kirstin Kraus DO [Primary Care Provider] - - Diet and Activity Activity: as per physical therapy, wear oxygen at all times Diet: diabetic diet, low fat, low cholesterol Interval History: Seen and examined at bedside, sitting up in chair eating breakfast. Says she feels a little SOB today but overall improved. She is aware of discharge to SNF. Hospital course: See assessment and plan for hospital course - Time Spent with Patient Total time spent providing and/or coordinating discharge services: Greater than 30 minutes (38 minutes spent on discharge) - Constitutional Vitals: Temp Pulse Resp BP Pulse Ox 97.9 F 62 18 144/73 96 05/11/17 06:59 05/11/17 06:59 05/11/17 07:54 05/11/17 06:59 05/11/17 07:54 General appearance: Present: cooperative, A&O X 2, pleasant, no acute distress, answers questions appropriately - Head Head exam: Present: atraumatic, normocephalic - Eye Eye exam: Present: PERRL, conjuntiva pink, sclera anicteric Pupils: Present: PERRL Additional comments: blind - Neck Neck exam general surgery: Present: supple, trachea midline. Absent: lymphadenopathy - Respiratory Respiratory exam: Present: decreased breath sounds, CTAB. Absent: accessory muscle use, rales, rhonchi, wheezes Additional comments: O2 via NC - Cardiovascular Cardiovascular exam: Present: RRR, +S1, +S2. Absent: diastolic murmur, gallop, rubs, systolic murmur - GI/Abdominal GI/Abdominal exam: Present: normal bowel sounds, soft, no peritoneal signs. Absent: distended, tenderness - Extremities Exam Extremities exam: Present: warm, radial pulses palpable and symmetrical. Absent : calf tenderness, cyanotic, pedal edema - Neurological Exam Neurological exam: Present: CN II-XII intact, oriented X3, no focal deficits. Absent: pronater drift, facial droop, speech deficit - Skin Skin exam: Present: dry, intact
--- NOTE | 2017-05-11 09:49 | Physician Discharge Referral ---
ExtendedCare Referral Info Transfer To: [facility] Provider in Charge: Allison Soria CNP Provider in Charge after Transfer: Other (SNF provider) Institutional Level of Care: Skilled - Diagnosis (1) Acute exacerbation of chronic obstructive airways disease Status: Acute (2) Hyponatremia Status: Resolved (3) Diabetes mellitus Status: Chronic (4) Hypertension Status: Chronic - Transfer Medications Prescriptions: Azithromycin [Azithromycin 6-Tab Pack] 250 mg PO PER PKG DI #6 tab diazePAM [Valium] 2 mg PO HS #7 tablet predniSONE [PredniSONE] 40 mg PO DAILY #5 tablet Home Medications: Lisinopril 2.5 mg PO DAILY 07/01/15 [History] NIFEdipine [Nifedipine ER] 60 mg PO DAILY 07/01/15 [History] Sennosides/Docusate Sodium [Senna Plus] 1 - 2 each PO DAILY PRN 07/01/15 [ History] Simvastatin [Zocor] 20 mg PO HS 07/01/15 [History] Latanoprost [Xalatan] 1 drop BOTH EYES HS 04/04/17 [History] Acetylcysteine 10% 2 ml IH [id number] #42 inhsol 04/09/17 [Rx] Albuterol Neb [Proventil Neb] 2.5 mg IH Q2H PRN #0 inhsol 04/09/17 [Rx] Benzonatate [Tessalon] 100 mg PO TID PRN capsule 04/09/17 [Rx] Cetirizine HCl [Zyrtec] 10 mg PO DAILY #30 capsule 04/09/17 [Rx] Chloraseptic [place] [Chloraseptic] 1 spray MM QID PRN bottle 04/09/17 [Rx] Fluticasone Propionate Nasal [Flonase] 50 mcg NS DAILY #1 bottle 04/09/17 [Rx] Ipratropium/Albuterol Neb [Duoneb] 3 ml IH [id number] #0 inhsol 04/09/17 [Rx] Levothyroxine [Synthroid] 75 mcg PO 0630 tablet 04/09/17 [Rx] Saliva Stimulant [Biotene Moisturizing Rinse] 1 spray PO Q2H PRN bottle [Rx] carBAMazepine [Tegretol] 200 mg PO BID PRN tablet 04/09/17 [Rx] hydrOXYzine pamoate [HydrOXYzine Pamoate] 25 mg PO BID PRN #6 capsule 04/09/17 [ Rx] metFORMIN [Glucophage] 500 mg PO QAM 05/08/17 [History] predniSONE [PredniSONE] 40 mg PO DAILY #5 tablet 05/10/17 [Rx] Azithromycin [Azithromycin 6-Tab Pack] 250 mg PO PER PKG DI #6 tab 05/11/17 [Rx] diazePAM [Valium] 2 mg PO HS #7 tablet 05/11/17 [Rx] Allergies/Adverse Reactions: 3 Allergy/AdvReac Type Severity Reaction Status Date / Time cephalexin [From Keflex] Allergy Difficulty Verified 04/03/17 20:14 Breathing levofloxacin [From Levaquin] Allergy Difficulty Verified 04/03/17 20:14 Breathing moxifloxacin [From Avelox] Allergy Difficulty Verified 04/03/17 20:14 Breathing - Respiratory Orders Oxygen / L per min (2 liters/min. Titrate to maintain saturations 92% or greater ) Smoking Cessation: Smoking cessation has been advised. For more information, call the [place] Tobacco Quit Line at 3-032-VKLR-NOW. - Advance Directives Code Status: Full Code - Mobility Orders Ambulate - Rehabiliation Orders Rehab Potential: Fair Rehab Orders: Evaluation for Physical Therapy, Evaluation for Occupational Therapy - Diet Orders No Added Salt (BLANCHE), No Concentrated Sweets CERTIFICATION: I certify that the transfer of the above named patient to an Extended Care Facility is necessary for the continuing treatment of the diagnosis listed. The above information is true and accurate reflection of patient's current condition. Confidential - Redisclosure prohibited without a patient's written consent.
[2017-05-11] MEDS: NIFEdipine XL (24 HR) 60 MG TAB.ER.24 PO SCH (10:21)
[2017-05-11] MEDS: Azithromycin 250 MG TABLET PO SCH (10:22)
== END 2017-05-11 10:31 | DRG 191 ==
LOC: EMEROO 20:29 → 3BNU 20:29
PROVIDERS: ADMIT Hospitalist; ATTEND Registered Nurse

== ENCOUNTER 2017-07-19 06:26 | Inpatient (IN) ==
[2017-07-19] MEDS ORDERED: Ipratropium/Albuterol Neb 3 ML IH STA (07:12)
[2017-07-19] MEDS ORDERED: predniSONE 20 MG TABLET PO STA (07:12)
--- NOTE | 2017-07-19 07:17 | Emergency Department Note ---
Disposition Clinical Impression: COPD exacerbation, Rectal bleeding Hemorrhoids Qualifiers: Hemorrhoid type: unspecified Qualified Code(s): K64.9 - Unspecified hemorrhoids Disposition: Admitted As Inpatient Condition: Fair Referrals: Kirstin Kraus DO [Primary Care Provider] - Forms: ED Satisfaction Letter General Adult HPI - General Chief complaint: ED Shortness of Breath/Dyspnea Stated complaint: difficulty in breathing Time Seen by Provider: 07/19/17 06:29 Source: patient Limitations: no limitations - History of Present Illness HPI Narrative: Recently admitted for COPD exacerbation and sent to longterm for rehabilitation, transferred from rehabilitation hospital to assisted living 5 days ago. Presents this morning with shortness of breath and cough. Says that she has had a cough for quite a while now, maybe a month. She was initially bringing up more sputum the usual, usually clear and white but occasionally yellow. Over the last couple of days, she has stopped being able to bring up sputum, and feels that her breathing is worsened since then. No fever. No chest pain, she describes a sensation of squeezing and choking when she coughs. She usually gets breathing treatments every 4 hours, has been getting them every 2 hours without significant relief. Oxygen saturations have been running low at the assisted living as well. She has no change in her chronic abdominal pain. No urinary tract symptoms. She has been eating and drinking well, although she says she is not very hungry. She has a bitemporal headache which she has had intermittently for quite some time now. They have been using ibuprofen for with moderate relief. She says that she has been bleeding from her hemorrhoids and "losing a lot of blood," no rectal pain. Bleeding is bright red. No hemoptysis. She has never had surgery. No history of DVT, PE or cancer. Pain Scale: 0 - Related Data Home Medications Medication Instructions Recorded Confirmed Lisinopril 2.5 mg PO DAILY 07/01/15 05/08/17 NIFEdipine [Nifedipine ER] 60 mg PO DAILY 07/01/15 05/08/17 Sennosides/Docusate Sodium [Senna 1 - 2 each PO DAILY PRN 07/01/15 05/08/17 Plus] Simvastatin [Zocor] 20 mg PO HS 07/01/15 05/08/17 Latanoprost [Xalatan] 1 drop BOTH EYES HS 04/04/17 05/08/17 metFORMIN [Glucophage] 500 mg PO QAM 05/08/17 05/08/17 Previous Rx's Medication Instructions Recorded Acetylcysteine 10% 2 ml IH [id number] #42 inhsol 04/09/17 Albuterol Neb [Proventil Neb] 2.5 mg IH Q2H PRN #0 inhsol 04/09/17 Benzonatate [Tessalon] 100 mg PO TID PRN capsule 04/09/17 Cetirizine HCl [Zyrtec] 10 mg PO DAILY #30 capsule 04/09/17 Chloraseptic [place] [Chloraseptic] 1 spray MM QID PRN bottle 04/09/17 Fluticasone Propionate Nasal 50 mcg NS DAILY #1 bottle 04/09/17 [Flonase] Ipratropium/Albuterol Neb [Duoneb] 3 ml IH [id number] #0 inhsol 04/09/17 Levothyroxine [Synthroid] 75 mcg PO 0630 tablet 04/09/17 Saliva Stimulant [Biotene 1 spray PO Q2H PRN bottle 04/09/17 Moisturizing Rinse] carBAMazepine [Tegretol] 200 mg PO BID PRN tablet 04/09/17 hydrOXYzine pamoate [HydrOXYzine 25 mg PO BID PRN #6 capsule 04/09/17 Pamoate] predniSONE [PredniSONE] 40 mg PO DAILY #5 tablet 05/10/17 Azithromycin [Azithromycin 6-Tab 250 mg PO PER PKG DI #6 tab 05/11/17 Pack] diazePAM [Valium] 2 mg PO HS #7 tablet 05/11/17 Allergies Allergy/AdvReac Type Severity Reaction Status Date / Time cephalexin [From Keflex] Allergy Difficulty Verified 04/03/17 20:14 Breathing levofloxacin [From Levaquin] Allergy Difficulty Verified 04/03/17 20:14 Breathing moxifloxacin [From Avelox] Allergy Difficulty Verified 04/03/17 20:14 Breathing All systems ED: reviewed and negative except as stated. Past Medical History - Past Medical History Medical history: Reports: arthritis, COPD, diabetes, GERD, glaucoma, hypertension, osteoporosis, thyroid disease, other Surgical history: Reports: no surgical history Psychiatric history: Reports: anxiety SIGNAL WIRER history: Reports: non-contributory - Social History Smoking Status: Light tobacco smoker Smokeless Tobacco Status: No Alcohol use: Reports: none Drug use: Reports: none Physical Exam Vital signs noted please see nurse's notes. Gen.: Well-developed, well-nourished patient lying in bed who appears nontoxic. Head: Atraumatic, normocephalic. Eyes: Sclerae anicteric. ENT: Mucous membranes moist. Neck: No JVD. Heart: Regular rate and rhythm without appreciable murmur. Lungs: Not in acute respiratory distress. Mild conversational dyspnea. Borderline tachypnea. She has inspiratory and respiratory wheezing throughout both lung vela with scattered rhonchi and mild prolongation of expiratory phase. Abdomen: Soft, left-sided tenderness, nondistended, no guarding or peritoneal signs. Skin: Warm and dry without rash. Neurologic: Awake, alert with normal speech and mental status. Cranial nerves grossly intact. No focal deficits or lateralizing signs. Psychiatric: Normal mood and affect. Muscular skeletal: No peripheral edema. No signs of trauma or DVT. - General Limitations: no limitations General appearance: alert Course Course Narrative: Minimal improvement after 3 DuoNeb's, 3 albuterol nebulizers were ordered. She is now complaining of calf Pain. Her lower extremity exam is unremarkable, no erythema or warmth, no asymmetrical swelling. While I doubt PE, she is fairly immobile, has been hospitalized recently, now complains of calf pain, and there seems to be a component of this illness that was somewhat sudden in onset. She is low risk by well's and I have low clinical suspicion, will use and age adjusted d-dimer to rule out a clotting process. Vital Signs Temperature 98.2 F 07/19/17 06:29 Pulse Rate 89 07/19/17 06:29 Respiratory Rate 16 07/19/17 06:29 Blood Pressure 144/74 07/19/17 06:29 O2 Sat by Pulse Oximetry 99 07/19/17 06:29 Temperature 98.2 F 07/19/17 06:29 Pulse Rate 87 07/19/17 08:55 Respiratory Rate 18 07/19/17 08:55 Blood Pressure 127/62 07/19/17 08:55 O2 Sat by Pulse Oximetry 90 07/19/17 08:55 Oxygen Delivery Oxygen Delivery Room Air Medical Decision Making - Lab Data Result diagrams: 07/19/17 06:46 Lab Results 07/19/17 Range/Units 06:46 Hgb 11.0 L (11.5-15.4) g/dL - EKG Data EKG #1 EKG attestation: Yes I reviewed and interpreted this EKG. EKG shows normal: sinus rhythm (Rate 85, normal intervals and QRS duration. No acute ischemic changes. No signs of right heart strain.)
[2017-07-19] MEDS ORDERED: Albuterol 2.5 MG/3 ML NEBULIZER IH STA (08:58)
[2017-07-19] MEDS ORDERED: Piperacillin/Tazobactam 3.375 GM in Water for inj. (sterile) 20 ML 20 ML IVP ONE (09:12)
[2017-07-19 09:36] LABS: Hematocrit 32.2 % (35.3-44.9); Hemoglobin 10.4 g/dL (11.5-15.4); Mean Corpuscular HGB Conc 32.3 g/dL (31.6-35.5); Mean Corpuscular Hemoglobin 31.6 pg (28.0-33.3); Mean Corpuscular Volume 97.9 fL (83.0-100.0); Platelet Count 263 K/mcL (140-400); Red Blood Count 3.29 M/mcL (3.82-4.97); Red Cell Distribution Width 12.6 % (11.5-14.5)
[2017-07-19 09:49] LABS: BUN/Creatinine Ratio 10 (6-26); Blood Urea Nitrogen 6 mg/dL (8-23); Calcium 9.5 mg/dL (8.6-10.3); Carbon Dioxide 32 mEq/L (23-29); Chloride 97 mEq/L (98-107); Glucose 171 mg/dL (70-105); Osmolality,Calculated 288 (280-300); Potassium 3.3 mEq/L (3.5-5.1); Sodium 138 mEq/L (136-145); eGFR For African Americans > 60 (> 60); eGFR For Non-African Americans > 60 (> 60)
[2017-07-19] MEDS ORDERED: Naloxone 0.4 MG/ML INJ IVP PRN (11:38)
[2017-07-19] MEDS ORDERED: Sennosides/Docusate Sodium TABLET PO PRN (11:43)
[2017-07-19] MEDS ORDERED: Saliva Stimulant 100ml BOTTLE PO PRN (11:43)
--- NOTE | 2017-07-19 11:55 | Internal Med History&Physical ---
Date of Encounter: 07/19/17 Time of Encounter: 11:51 Assessment and Plan (1) Acute exacerbation of chronic obstructive airways disease Current visit: No Status: Acute 87/female Multiple comorbid issues. Admitted with COPD exacerbation. CODE STATUS: Full code. Was recently discharged to alf from where she was a step down to assisted living. Worsening shortness of breath/change in color of the sputum/persistent cough Polyphonic wheeze/using accessory muscles during respiration. Plan: Admit as inpatient: Patient needs intravenous antibiotics, close monitoring of the respiratory status Intravenous antibiotics: Zosyn every 8 hours. Intravenous steroids: Solu-Medrol 40 mg every 8 hours. Inhaled bronchodilators: DuoNeb every 4 hours. Close monitoring of the respiratory status. If clinically worsens then this patient needs to be intubated and should send to the ICU for further evaluation as per patient's wish. Of note: I examined this patient in a emergency room #27. Patient's family was at bedside. All questions answered. (2) Weakness Current visit: No Status: Acute We will get physical therapy/occupational therapy evaluation. This weakness is likely secondary to physical deconditioning. (3) Diabetes mellitus Current visit: No Status: Chronic We will closely monitor blood sugar level Qualifiers: Diabetes mellitus type: type 2 Diabetes mellitus complication status: with unspecified complications Diabetes mellitus [employer] insulin use: without skilled nursing use Qualified Code(s): E11.8 - Type 2 diabetes mellitus with unspecified complications (4) Hypothyroidism Current visit: No Status: Chronic Stable Qualifiers: Hypothyroidism type: unspecified Qualified Code(s): E03.9 - Hypothyroidism , unspecified (5) Hypertension Current visit: No Status: Chronic Within acceptable range Qualifiers: Hypertension type: essential hypertension Qualified Code(s): I10 - Essential (primary) hypertension (6) DVT prophylaxis Current visit: No Status: Acute Heparin Medical decision making: This patient has a moderate to severe risk of worsening in spite being on appropriate treatment because of underlying comorbid conditions. Internal Medicine - H&P: HPI Chief complaint: Shortness of breath Admitted From: Emergency Dept Plans for Post Hospital Care: Home History of present illness: PCP: Dr Holly. Brief PMH: DM, HTN, Dyslipidemia, COPD, HPI: worsening SOB along with cough and mucupurulent expectoration. Patient was worsening clinically. Patient was recently shifted recently from alf to assisted living. Patient has persistent respiratory symptoms since Monday. Patient denies any fever, nausea, vomiting, abdominal pain, dizziness and diarrhea. Patient's daughter made an appointment to see her primary care provider today. Patient was gradually worsening and that was the reason they came to the emergency room for further evaluation. Workup in the ER: Patient was evaluated in the emergency room. Basic labs were drawn. X-ray chest did not show any pneumonia but keep in mind that patient might be dehydrated. Reason for admission: COPD exacerbation which needs intravenous antibiotics. Roxie history: Noncontributory Past Med Surg Social Fam HX - Past Medical History Medical history: arthritis, COPD, diabetes, GERD, glaucoma, hypertension, osteoporosis, thyroid disease, other Psychiatric history: anxiety - Past Surgical History Surgical History: no surgical history - Social History Smoking Status: Light tobacco smoker Smokeless Tobacco Status: No Alcohol use: none Drug use: none - Family History Mother Living Status: Hx Family Cardiac Disorders: Yes Internal Medicine - H&P: Meds Lisinopril 2.5 mg PO DAILY 07/01/15 [History] NIFEdipine [Nifedipine ER] 60 mg PO DAILY 07/01/15 [History] Sennosides/Docusate Sodium [Senna Plus] 1 - 2 each PO DAILY PRN 07/01/15 [ History] Simvastatin [Zocor] 20 mg PO HS 07/01/15 [History] Latanoprost [Xalatan] 1 drop BOTH EYES HS 04/04/17 [History] Acetylcysteine 10% 2 ml IH [id number] #42 inhsol 04/09/17 [Rx] Albuterol Neb [Proventil Neb] 2.5 mg IH Q2H PRN #0 inhsol 04/09/17 [Rx] Benzonatate [Tessalon] 100 mg PO TID PRN capsule 04/09/17 [Rx] Fluticasone Propionate Nasal [Flonase] 50 mcg NS DAILY #1 bottle 04/09/17 [Rx] Levothyroxine [Synthroid] 75 mcg PO 0630 tablet 04/09/17 [Rx] Saliva Stimulant [Biotene Moisturizing Rinse] 1 spray PO Q2H PRN bottle [Rx] carBAMazepine [Tegretol] 200 mg PO BID PRN tablet 04/09/17 [Rx] metFORMIN [Glucophage] 500 mg PO QAM 05/08/17 [History] diazePAM [Valium] 2 mg PO HS #7 tablet 05/11/17 [Rx] Guaifenesin [Mucinex] 600 mg PO BID PRN 07/19/17 [History] Ibuprofen [Motrin] 1 - 2 tab PO Q4HR 07/19/17 [History] Loperamide [Imodium] 2 mg PO DAILY PRN 07/19/17 [History] 3 Allergy/AdvReac Type Severity Reaction Status Date / Time cephalexin [From Keflex] Allergy Difficulty Verified 04/03/17 20:14 Breathing levofloxacin [From Levaquin] Allergy Difficulty Verified 04/03/17 20:14 Breathing moxifloxacin [From Avelox] Allergy Difficulty Verified 04/03/17 20:14 Breathing All Systems PM: A 10-system review of systems was performed and is negative for pertinent findings except as documented above in the HPI. - Constitutional Constitutional: no chills, no fever(s), no night sweats - EENT Eyes: no change in vision, no discharge, no pain, no photophobia Ears: no ear discharge, no ear pain, no tinnitus Nose, mouth and throat: no dysphagia, no nasal discharge, no neck pain, no sore throat - Cardiovascular Cardiovascular ROS IM: no chest pain, no diaphoresis, no dyspnea, no lightheadedness, no palpitations, no syncope - Respiratory Respiratory: no cough, no dyspnea, no wheezing, no excessive phlegm production - Gastrointestinal Gastrointestinal: no abdominal pain, no diarrhea, no hematemesis, no hematochezia, no melena, no nausea, no vomiting - Genitourinary Genitourinary: no change in urinary stream, no dysuria, no flank pain, no hematuria - Musculoskeletal Musculoskeletal ROS IM: no numbness, no tingling - Integumentary Integumentary IM: no rash, no unusual bruising - Neurological Neurological ROS: no confusion, no convulsions, no focal weakness, no numbness, no tingling, no tremor(s) - Hematologic/Lymphatic Hematologic/Lymphatic: no easy bruising - Constitutional Vitals: Temp Pulse Resp BP Pulse Ox 98.2 F 87 18 95/45 90 07/19/17 06:29 07/19/17 08:55 07/19/17 11:16 07/19/17 11:16 07/19/17 08:55 General appearance: Present: A&O X 3, pleasant, no acute distress, answers questions appropriately - Head Head exam: Present: atraumatic, normocephalic - Eye Eye exam: Present: PERRL, conjuntiva pink, sclera anicteric Pupils: Present: PERRL - Neck Neck exam general surgery: Present: supple, trachea midline. Absent: lymphadenopathy - Respiratory Respiratory exam: Present: CTAB. Absent: accessory muscle use, rales, rhonchi, wheezes - Cardiovascular Cardiovascular exam: Present: RRR, +S1, +S2. Absent: diastolic murmur, gallop, rubs, systolic murmur - GI/Abdominal GI/Abdominal exam: Present: normal bowel sounds, soft, no peritoneal signs. Absent: distended, tenderness - Extremities Exam Extremities exam: Present: warm, radial pulses palpable and symmetrical. Absent : calf tenderness, cyanotic, pedal edema - Neurological Exam Neurological exam: Present: CN II-XII intact, oriented X3, no focal deficits. Absent: pronater drift, facial droop, speech deficit - Skin Skin exam: Present: dry, intact Internal Med - H&P Results - Labs CBC & Chem 7: 07/19/17 09:29 07/19/17 09:29
[2017-07-19] MEDS: Acetylcysteine 10% 2 ML INHSOL IH SCH ×4 (15:37→23:24)
[2017-07-19] MEDS: Ipratropium/Albuterol Neb 3 ML IH SCH ×4 (15:38→23:24)
[2017-07-19] MEDS ORDERED: Piperacillin/Tazobactam 2.25 GM in D5% in Water (Mini-Bag+) 100 ML IVPB SCH (16:00)
[2017-07-19] MEDS: 0.9 % Sodium Chloride 1,000 ML IVC SCH (16:45)
[2017-07-19 17:20] LABS: Bilirubin,Urine Negative (Negative); Blood,Urine Trace (Negative); Clarity,Urine Clear (Clear); Color,Urine Yellow (Yellow); Glucose,Urine (UA) 100 mg/dL (Normal); Ketones,Urine Negative (Negative); Leukocyte Esterase,Urine Negative (Negative); Nitrite,Urine Negative (Negative); PH,Urine 6.5 pH Units (5.0-8.0); Protein,Urine 30 mg/dL (Neg-Trace); Specific Gravity,Urine 1.022 (1.010-1.025); Urobilinogen,Urine Normal (Normal)
[2017-07-19 17:22] LABS: Bacteria,Urine None Seen per hpf (None-Few); Hyaline Casts,Urine None Seen per lpf (None-Few); RBC,Urine 0-3 per hpf (0-3); Squamous Epithelial Cell,Urine Many per lpf (None-Few); WBC,Urine 0-3 per hpf (0-3)
[2017-07-19] MEDS: *HR* Heparin 5,000 UNIT/ML VIAL SQ SCH ×2 (17:31→23:29)
[2017-07-19] MEDS: Piperacillin/Tazobactam 3.375 GM/200 ML BAG IVPB SCH ×2 (17:32→23:30)
[2017-07-19] MEDS: MethylPREDNISolone 40 MG/ML VIAL IVP SCH ×2 (17:33→23:30)
[2017-07-19] MEDS ORDERED: D5% in Water 1,000 ML IVC PRN (18:41)
[2017-07-19] MEDS ORDERED: Dextrose Gel 15 GM/37.5 ML TUBE PO PRN ×2 (18:41)
[2017-07-19] MEDS ORDERED: *HR* Dextrose 50 % in Water (Syg) 50 ML SYRINGE IVP PRN (18:41)
[2017-07-19] MEDS: carBAMazepine 200 MG TABLET PO PRN (20:39)
[2017-07-19] MEDS: diazePAM 2 MG TABLET PO SCH (20:39)
[2017-07-19] MEDS: Latanoprost 2.5 ML BOTTLE BOTH EYES SCH (20:40)
[2017-07-19] MEDS: Benzonatate 100 MG CAPSULE PO PRN (20:58)
[2017-07-19] MEDS: Insulin LISPRO 300 UNITS/3 ML VIAL SQ SCH (21:10)
[2017-07-20 00:51] LABS: Hematocrit 27.3 % (35.3-44.9); Immature Granulocytes % 0.6 % (0-4); Lymphocytes # 0.4 K/mcL (0.6-4.6); Lymphocytes % 5.8 %; Mean Corpuscular Hemoglobin 31.9 pg (28.0-33.3); Mean Corpuscular Volume 96.8 fL (83.0-100.0); Mean Platelet Volume 9.4 fL (9.4-12.4); Monocytes # 0.2 K/mcL (0.0-1.3); Monocytes % 2.7 %; Neutrophils # 5.6 K/mcL (1.6-8.9); Platelet Count 220 K/mcL (140-400); Red Blood Count 2.82 M/mcL (3.82-4.97); Red Cell Distribution Width 12.3 % (11.5-14.5); Segmented Neutrophils % 90.9 %
[2017-07-20 00:57] LABS: INR 1.1; Prothrombin Time 11.6 Seconds (9.4-12.1)
[2017-07-20 01:00] LABS: Activated Partial Thrombo Time 24.6 Seconds (26.0-36.0)
[2017-07-20 01:05] LABS: Alanine Aminotransferase 8 Units/L (7-52); Albumin 3.5 g/dL (3.5-5.7); Albumin/Globulin Ratio 1.4 (1.1-2.2); Alkaline Phosphatase 64 Units/L (34-104); Aspartate Amino Transferase 10 Units/L (13-39); BUN/Creatinine Ratio 17 (6-26); Bilirubin,Total 0.3 mg/dL (0.3-1.0); Blood Urea Nitrogen 12 mg/dL (8-23); Calcium 9.1 mg/dL (8.6-10.3); Carbon Dioxide 28 mEq/L (23-29); Chloride 96 mEq/L (98-107); Chol/HDL Ratio 2.1 (0-4.9); Cholesterol 118 mg/dL (< 200); Globulin 2.5 g/dL (2.4-3.5); Glucose 290 mg/dL (70-105); HDL Cholesterol 56 mg/dL (40-59); LDL Cholesterol,Calculated 52 mg/dL (0-99); Magnesium 1.7 mg/dL (1.6-2.6); Osmolality,Calculated 284 (280-300); Phosphorous 2.8 mg/dL (2.7-4.5); Potassium 3.5 mEq/L (3.5-5.1); Sodium 132 mEq/L (136-145); Triglycerides 51 mg/dL (< 150); eGFR For African Americans > 60 (> 60); eGFR For Non-African Americans > 60 (> 60)
[2017-07-20] MEDS: Ipratropium/Albuterol Neb 3 ML IH SCH ×5 (04:24→19:42)
[2017-07-20] MEDS: Acetylcysteine 10% 2 ML INHSOL IH SCH ×5 (04:24→19:42)
--- NOTE | 2017-07-20 08:02 | Electrocardiograph Report ---
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
[2017-07-20] MEDS: 0.9 % Sodium Chloride 1,000 ML IVC SCH (08:03)
[2017-07-20] MEDS: *HR* Heparin 5,000 UNIT/ML VIAL SQ SCH ×2 (09:23→16:52)
[2017-07-20] MEDS: NIFEdipine XL (24 HR) 60 MG TAB.ER.24 PO SCH (09:23)
[2017-07-20] MEDS: carBAMazepine 200 MG TABLET PO PRN (09:23)
[2017-07-20] MEDS: Insulin LISPRO 300 UNITS/3 ML VIAL SQ SCH ×4 (09:23→22:03)
[2017-07-20] MEDS: MethylPREDNISolone 40 MG/ML VIAL IVP SCH ×2 (09:23→16:50)
[2017-07-20] MEDS: Piperacillin/Tazobactam 3.375 GM/200 ML BAG IVPB SCH ×2 (09:24→16:49)
[2017-07-20] MEDS: Fluticasone Propionate Nasal 50 MCG/SPRAY BOTTLE NS SCH (09:24)
[2017-07-20] MEDS: Insulin DETEMIR 100 UNIT/ML X5UNITS SQ SCH ×2 (09:24→22:03)
[2017-07-20] MEDS ORDERED: Acetaminophen 325 MG TABLET PO PRN (10:03)
--- NOTE | 2017-07-20 15:10 | Internal Med Progress Note ---
Date of Encounter: 07/20/17 Time of Encounter: 08:50 - Assessment and plan (1) Acute exacerbation of chronic obstructive airways disease Current Visit: Yes Status: Acute Assessment and plan: Continue current management wit solu medrol, duonebs and O2 supplementation. Also on Zosyn. High risk for complications. (2) Diabetes mellitus Current Visit: Yes Status: Chronic Assessment and plan: Uncontrolled. Will start patient on long-acting insulin in addition to sliding scale coverage. Expect a rise in blood sugars due to IV steroid use. Qualifiers: Diabetes mellitus type: type 2 Diabetes mellitus complication status: with unspecified complications Diabetes mellitus intermediate project manager insulin use: without correction use Qualified Code(s): E11.8 - Type 2 diabetes mellitus with unspecified complications (3) DVT prophylaxis Current Visit: Yes Status: Acute Assessment and plan: With subcutaneous heparin (4) Hypertension Current Visit: Yes Status: Chronic Assessment and plan: Well-controlled. Continue lisinopril. Qualifiers: Hypertension type: essential hypertension Qualified Code(s): I10 - Essential (primary) hypertension (5) Hypothyroidism Current Visit: Yes Status: Chronic Assessment and plan: Continue Synthroid Qualifiers: Hypothyroidism type: unspecified Qualified Code(s): E03.9 - Hypothyroidism , unspecified (6) Weakness Current Visit: Yes Status: Acute Assessment and plan: Patient evaluated by physical therapy and recommended home health. - Subjective Interval history: Patient complaining of shortness of breath and difficulty swallowing. No chest pain or abdominal pain. No nausea or vomiting. No palpitations. - Constitutional Vitals: Temp Pulse Resp BP Pulse Ox 98.1 F 91 16 135/65 98 07/20/17 11:20 07/20/17 11:20 07/20/17 11:20 07/20/17 11:20 07/20/17 11:20 General appearance: Present: A&O X 3, pleasant, no acute distress, answers questions appropriately - Neck Neck exam general surgery: Present: supple, trachea midline. Absent: lymphadenopathy - Respiratory Respiratory exam: Present: prolonged expiratory phase. Absent: accessory muscle use, rales, rhonchi, wheezes - Cardiovascular Cardiovascular exam: Present: RRR, +S1, +S2. Absent: diastolic murmur, gallop, rubs, systolic murmur - GI/Abdominal GI/Abdominal exam: Present: normal bowel sounds, soft, no peritoneal signs. Absent: distended, tenderness - Extremities Exam Extremities exam: Present: warm, radial pulses palpable and symmetrical. Absent : calf tenderness, cyanotic, pedal edema - Neurological Exam Neurological exam: Present: no focal deficits. Absent: facial droop, speech deficit - Skin Skin exam: Present: dry, intact Internal Medicine: Result - Labs CBC & Chem 7: 07/20/17 00:42 07/20/17 00:42 Labs: Short CBC 07/20/17 Range/Units 00:42 WBC 6.2 (4.3-11.1) K/mcL Hgb 9.0 L (11.5-15.4) g/dL Hct 27.3 L (35.3-44.9) % Plt Count 220 (140-400) K/mcL Neutrophils # 5.6 (1.6-8.9) K/mcL BMP 07/20/17 00:42 Sodium 132 L Potassium 3.5 Chloride 96 L Carbon Dioxide 28 BUN 12 Creatinine 0.69 Glucose 290 H Calcium 9.1 Cardiac Enzymes 07/19/17 07/20/17 Range/Units 18:20 00:42 Troponin I < 0.03 < 0.03 (< 0.04) ng/mL Liver Function 07/20/17 Range/Units 00:42 Total Bilirubin 0.3 (0.3-1.0) mg/dL AST 10 L (13-39) Units/L ALT 8 (7-52) Units/L Alkaline Phosphatase 64 (34-104) Units/L Albumin 3.5 (3.5-5.7) g/dL - ABG Interpretation ABG results: PT/INR, D-dimer PT 11.6 Seconds (9.4-12.1) 07/20/17 00:42 D-Dimer 964 ng/mLFEU (0-500) H 07/19/17 09:29 Consult Discharge Plan - Plan Referrals: Kirstin Kraus DO [Primary Care Provider] -
[2017-07-20] MEDS: diazePAM 2 MG TABLET PO SCH (22:02)
[2017-07-20] MEDS: Latanoprost 2.5 ML BOTTLE BOTH EYES SCH (22:03)
[2017-07-20] MEDS: Benzonatate 100 MG CAPSULE PO PRN (22:23)
[2017-07-21] MEDS: Ipratropium/Albuterol Neb 3 ML IH SCH ×6 (00:12→20:09)
[2017-07-21] MEDS: Acetylcysteine 10% 2 ML INHSOL IH SCH ×6 (00:13→20:11)
[2017-07-21] MEDS: MethylPREDNISolone 40 MG/ML VIAL IVP SCH ×2 (00:30→19:42)
[2017-07-21] MEDS: Piperacillin/Tazobactam 3.375 GM/200 ML BAG IVPB SCH ×2 (00:30→08:52)
[2017-07-21] MEDS: *HR* Heparin 5,000 UNIT/ML VIAL SQ SCH ×3 (00:30→17:16)
[2017-07-21] MEDS: Insulin LISPRO 300 UNITS/3 ML VIAL SQ SCH ×6 (08:45→21:32)
[2017-07-21] MEDS: Insulin DETEMIR 100 UNIT/ML X5UNITS SQ SCH ×2 (08:45→21:31)
[2017-07-21] MEDS: predniSONE 20 MG TABLET PO SCH (08:47)
[2017-07-21] MEDS: Sennosides/Docusate Sodium TABLET PO SCH ×2 (08:48→21:31)
[2017-07-21] MEDS: NIFEdipine XL (24 HR) 60 MG TAB.ER.24 PO SCH (08:48)
[2017-07-21] MEDS: Fluticasone Propionate Nasal 50 MCG/SPRAY BOTTLE NS SCH (08:51)
[2017-07-21] MEDS: Hydrocortisone Acetate 25 MG RECTAL SUPPOSITORY RC SCH ×2 (12:23→21:31)
[2017-07-21] MEDS: Doxycycline 100 MG CAPSULE PO SCH ×2 (12:23→21:31)
--- NOTE | 2017-07-21 16:26 | Internal Med Progress Note ---
Date of Encounter: 07/21/17 Time of Encounter: 10:30 - Assessment and plan (1) Acute exacerbation of chronic obstructive airways disease Current Visit: Yes Status: Acute Assessment and plan: Improving. Continue bronchodilators. Taper steroids. (2) Diabetes mellitus Current Visit: Yes Status: Chronic Assessment and plan: Well-controlled. Continue current insulin regimen. Qualifiers: Diabetes mellitus type: type 2 Diabetes mellitus complication status: with unspecified complications Diabetes mellitus fdc insulin use: without fdc use Qualified Code(s): E11.8 - Type 2 diabetes mellitus with unspecified complications (3) DVT prophylaxis Current Visit: Yes Status: Acute Assessment and plan: Blood cultures so far stable. Will continue subcutaneous heparin. If hemoglobin levels decreased, will hold heparin. (4) Hypertension Current Visit: Yes Status: Chronic Assessment and plan: Controlled Qualifiers: Hypertension type: essential hypertension Qualified Code(s): I10 - Essential (primary) hypertension (5) Hypothyroidism Current Visit: Yes Status: Chronic Assessment and plan: Continue synthroid Qualifiers: Hypothyroidism type: unspecified Qualified Code(s): E03.9 - Hypothyroidism , unspecified (6) Weakness Current Visit: Yes Status: Acute Assessment and plan: Evaluated by PT. Recommended home health (7) Hematochezia Current Visit: Yes Status: Acute Assessment and plan: Likely due to hemorrhoids. Will monitor blood counts. Continue laxatives. Symptomatic care. - Subjective Interval history: Patient complains of blood in her stools. She does describe a history of hemorrhoids. She had some pain while having bowel movement earlier this morning. Shortness of breath is improving. - Constitutional Vitals: Temp Pulse Resp BP Pulse Ox 98.2 F 64 16 150/71 95 07/21/17 14:55 07/21/17 14:55 07/21/17 14:55 07/21/17 14:55 07/21/17 14:55 General appearance: Present: A&O X 3, pleasant, no acute distress, answers questions appropriately - Respiratory Respiratory exam: Present: CTAB. Absent: accessory muscle use, rales, rhonchi, wheezes - Cardiovascular Cardiovascular exam: Present: RRR, +S1, +S2. Absent: diastolic murmur, gallop, rubs, systolic murmur - GI/Abdominal GI/Abdominal exam: Present: normal bowel sounds, soft, no peritoneal signs. Absent: distended, tenderness - Extremities Exam Extremities exam: Present: warm, radial pulses palpable and symmetrical. Absent : calf tenderness, cyanotic, pedal edema - Neurological Exam Neurological exam: Present: alert, oriented X3, no focal deficits. Absent: facial droop, speech deficit - Skin Skin exam: Present: dry, intact Internal Medicine: Result - Labs CBC & Chem 7: 07/22/17 00:19 07/22/17 00:19 - ABG Interpretation ABG results: PT/INR, D-dimer PT 11.6 Seconds (9.4-12.1) 07/20/17 00:42 D-Dimer 964 ng/mLFEU (0-500) H 07/19/17 09:29 Consult Discharge Plan - Plan Referrals: Kirstin Kraus DO [Primary Care Provider] - 07/31/17 8:45 am
[2017-07-21] MEDS: Benzonatate 100 MG CAPSULE PO PRN ×2 (17:28→21:31)
[2017-07-21 17:43] LABS: Hematocrit 27.4 % (35.3-44.9); Hemoglobin 9.1 g/dL (11.5-15.4)
[2017-07-21] MEDS: diazePAM 2 MG TABLET PO SCH (21:30)
[2017-07-21] MEDS: Lactobacillus 1 EACH CAP.SPRINK PO SCH (21:31)
[2017-07-21] MEDS: Latanoprost 2.5 ML BOTTLE BOTH EYES SCH (21:31)
[2017-07-22] MEDS: Ipratropium/Albuterol Neb 3 ML IH SCH ×6 (00:14→20:00)
[2017-07-22] MEDS: Acetylcysteine 10% 2 ML INHSOL IH SCH ×6 (00:15→20:00)
[2017-07-22 00:37] LABS: Hematocrit 23.6 % (35.3-44.9)
[2017-07-22 00:49] LABS: BUN/Creatinine Ratio 22 (6-26); Blood Urea Nitrogen 16 mg/dL (8-23); Calcium 8.6 mg/dL (8.6-10.3); Carbon Dioxide 29 mEq/L (23-29); Chloride 98 mEq/L (98-107); Glucose 109 mg/dL (70-105); Osmolality,Calculated 272 (280-300); Potassium 3.6 mEq/L (3.5-5.1); Sodium 130 mEq/L (136-145); eGFR For African Americans > 60 (> 60); eGFR For Non-African Americans > 60 (> 60)
[2017-07-22] MEDS: *HR* Heparin 5,000 UNIT/ML VIAL SQ SCH ×2 (00:50→09:54)
[2017-07-22] MEDS: Insulin LISPRO 300 UNITS/3 ML VIAL SQ SCH ×4 (07:51→21:55)
[2017-07-22] MEDS: Doxycycline 100 MG CAPSULE PO SCH ×2 (09:53→21:54)
[2017-07-22] MEDS: Insulin DETEMIR 100 UNIT/ML X5UNITS SQ SCH ×2 (09:53→21:55)
[2017-07-22] MEDS: Hydrocortisone Acetate 25 MG RECTAL SUPPOSITORY RC SCH ×2 (09:53→21:52)
[2017-07-22] MEDS: Sennosides/Docusate Sodium TABLET PO SCH ×2 (09:54→21:56)
[2017-07-22] MEDS: NIFEdipine XL (24 HR) 60 MG TAB.ER.24 PO SCH (09:54)
[2017-07-22] MEDS: Lactobacillus 1 EACH CAP.SPRINK PO SCH ×2 (09:54→21:54)
[2017-07-22] MEDS: predniSONE 20 MG TABLET PO SCH (09:55)
[2017-07-22] MEDS: Benzonatate 100 MG CAPSULE PO PRN ×2 (09:59→21:54)
[2017-07-22] MEDS: Fluticasone Propionate Nasal 50 MCG/SPRAY BOTTLE NS SCH (10:14)
[2017-07-22 14:27] LABS: Basophils % 0.1 %; Hematocrit 24.7 % (35.3-44.9); Hemoglobin 7.9 g/dL (11.5-15.4); Immature Granulocytes % 0.6 % (0-4); Immature Platelets 4.8 % (1.1-6.1); Lymphocytes # 1.2 K/mcL (0.6-4.6); Lymphocytes % 9.9 %; Mean Corpuscular Hemoglobin 32.5 pg (28.0-33.3); Mean Corpuscular Volume 101.6 fL (83.0-100.0); Mean Platelet Volume 10.1 fL (9.4-12.4); Monocytes # 1.2 K/mcL (0.0-1.3); Neutrophils # 9.6 K/mcL (1.6-8.9); Platelet Count 228 K/mcL (140-400); Red Blood Count 2.43 M/mcL (3.82-4.97); Red Cell Distribution Width 13.2 % (11.5-14.5); Segmented Neutrophils % 79.4 %
--- NOTE | 2017-07-22 16:26 | Internal Med Progress Note ---
Date of Encounter: 07/22/17 Time of Encounter: 09:30 - Assessment and plan (1) Hematochezia Current Visit: Yes Status: Acute Assessment and plan: Patient continuing to report hemorrhoidal bleeding. We will monitor blood counts. Hemoglobin 8 today. Appears to be stabilizing. We will trend blood counts. If it decreases further, we will consult surgery/GI for possible colonoscopy and evaluation. Hold heparin. High risk for complications. (2) Acute exacerbation of chronic obstructive airways disease Current Visit: Yes Status: Acute Assessment and plan: Continue current management with bronchodilators, antibiotics and oral steroids. Clinically getting better. Patient is on 4 L O2 supplementation and saturating 98%. We will wean FiO2. (3) Diabetes mellitus Current Visit: Yes Status: Chronic Assessment and plan: Fairly controlled. Continue current insulin regimen Qualifiers: Diabetes mellitus type: type 2 Diabetes mellitus complication status: with unspecified complications Diabetes mellitus residential insulin use: without residential use Qualified Code(s): E11.8 - Type 2 diabetes mellitus with unspecified complications (4) DVT prophylaxis Current Visit: Yes Status: Acute Assessment and plan: Hold heparin due to continued GI bleed from hemorrhoids. We will place patient on SCDs. (5) Hypertension Current Visit: Yes Status: Chronic Assessment and plan: Well-controlled. Qualifiers: Hypertension type: essential hypertension Qualified Code(s): I10 - Essential (primary) hypertension (6) Hypothyroidism Current Visit: Yes Status: Chronic Assessment and plan: Continue levothyroxine. Qualifiers: Hypothyroidism type: unspecified Qualified Code(s): E03.9 - Hypothyroidism , unspecified (7) Weakness Current Visit: Yes Status: Acute Assessment and plan: Will have PT OT reevaluate patient. Consult social work lecturer to discuss safe discharge planning as patient reports increased generalized weakness - Subjective Interval history: Patient is awake and alert. Has continued to have blood-tinged stools but appears to be improving. Denies any dizziness or lightheadedness. Shortness of breath is also improving. She does however complain of increased weakness. She reports that she is unable to get up to use the bathroom on her own and is concerned about going home where she lives alone. - Constitutional Vitals: Temp Pulse Resp BP Pulse Ox 98.2 F 75 16 132/68 98 07/22/17 14:35 07/22/17 14:35 07/22/17 15:30 07/22/17 14:35 07/22/17 15:30 General appearance: Present: A&O X 3, pleasant, no acute distress, answers questions appropriately - Respiratory Respiratory exam: Present: prolonged expiratory phase, wheezes. Absent: accessory muscle use, rales, rhonchi - Cardiovascular Cardiovascular exam: Present: RRR, +S1, +S2. Absent: diastolic murmur, gallop, rubs, systolic murmur - GI/Abdominal GI/Abdominal exam: Present: normal bowel sounds, soft, no peritoneal signs. Absent: distended, tenderness - Extremities Exam Extremities exam: Present: warm, radial pulses palpable and symmetrical. Absent : calf tenderness, cyanotic, pedal edema Internal Medicine: Result - Labs CBC & Chem 7: 07/22/17 00:19 07/22/17 00:19 Labs: Short CBC 07/21/17 07/22/17 07/22/17 Range/Units 17:28 00:19 00:19 WBC 12.1 H D (4.3-11.1) K/mcL Hgb 9.1 L 8.0 L 7.9 L (11.5-15.4) g/dL Hct 27.4 L 23.6 L 24.7 L (35.3-44.9) % Plt Count 228 (140-400) K/mcL Neutrophils # 9.6 H (1.6-8.9) K/mcL BMP 07/22/17 00:19 Sodium 130 L Potassium 3.6 Chloride 98 Carbon Dioxide 29 BUN 16 Creatinine 0.72 Glucose 109 H Calcium 8.6 - ABG Interpretation ABG results: PT/INR, D-dimer PT 11.6 Seconds (9.4-12.1) 07/20/17 00:42 D-Dimer 964 ng/mLFEU (0-500) H 07/19/17 09:29 Consult Discharge Plan - Plan Referrals: Kirstin Kraus DO [Primary Care Provider] - 07/31/17 8:45 am
[2017-07-22] MEDS: diazePAM 2 MG TABLET PO SCH (21:55)
[2017-07-22] MEDS: Latanoprost 2.5 ML BOTTLE BOTH EYES SCH (21:59)
[2017-07-23] MEDS: Ipratropium/Albuterol Neb 3 ML IH SCH ×6 (00:14→19:45)
[2017-07-23] MEDS: Acetylcysteine 10% 2 ML INHSOL IH SCH ×6 (00:14→19:46)
[2017-07-23 06:44] LABS: Basophils % 0.2 %; Eosinophils % 0.1 %; Hematocrit 26.3 % (35.3-44.9); Hemoglobin 8.5 g/dL (11.5-15.4); Lymphocytes % 21.3 %; Mean Corpuscular HGB Conc 32.3 g/dL (31.6-35.5); Mean Corpuscular Hemoglobin 31.3 pg (28.0-33.3); Mean Corpuscular Volume 96.7 fL (83.0-100.0); Mean Platelet Volume 9.9 fL (9.4-12.4); Monocytes # 1.2 K/mcL (0.0-1.3); Monocytes % 12.5 %; Platelet Count 230 K/mcL (140-400); Red Blood Count 2.72 M/mcL (3.82-4.97); Red Cell Distribution Width 12.9 % (11.5-14.5); Segmented Neutrophils % 64.9 %
[2017-07-23 07:04] LABS: % Iron Saturation 11 % (15-50); BUN/Creatinine Ratio 21 (6-26); Blood Urea Nitrogen 12 mg/dL (8-23); Calcium 8.7 mg/dL (8.6-10.3); Carbon Dioxide 31 mEq/L (23-29); Chloride 104 mEq/L (98-107); Ferritin 37 ng/ml (10-120); Glucose 79 mg/dL (70-105); Iron 34 mcg/dL (50-170); Osmolality,Calculated 287 (280-300); Potassium 3.4 mEq/L (3.5-5.1); Sodium 139 mEq/L (136-145); Transferrin 223 mg/dL (203-362); eGFR For African Americans > 60 (> 60); eGFR For Non-African Americans > 60 (> 60)
[2017-07-23] MEDS: Insulin LISPRO 300 UNITS/3 ML VIAL SQ SCH ×4 (07:37→22:19)
[2017-07-23 07:55] LABS: Folate 6.1 ng/mL (3.0-16.0)
[2017-07-23] MEDS: Doxycycline 100 MG CAPSULE PO SCH ×2 (09:00→22:17)
[2017-07-23] MEDS: predniSONE 20 MG TABLET PO SCH (09:01)
[2017-07-23] MEDS: Lactobacillus 1 EACH CAP.SPRINK PO SCH ×2 (09:01→22:18)
[2017-07-23] MEDS: Sennosides/Docusate Sodium TABLET PO SCH ×2 (09:02→22:20)
[2017-07-23] MEDS: NIFEdipine XL (24 HR) 60 MG TAB.ER.24 PO SCH (09:02)
[2017-07-23] MEDS: Hydrocortisone Acetate 25 MG RECTAL SUPPOSITORY RC SCH (09:04)
[2017-07-23] MEDS ORDERED: predniSONE 20 MG TABLET PO SCH (09:09)
[2017-07-23] MEDS: Insulin DETEMIR 100 UNIT/ML X5UNITS SQ SCH ×2 (10:04→22:19)
[2017-07-23] MEDS: Fluticasone Propionate Nasal 50 MCG/SPRAY BOTTLE NS SCH (10:04)
[2017-07-23] MEDS: Benzonatate 100 MG CAPSULE PO PRN ×2 (11:16→22:20)
--- NOTE | 2017-07-23 14:36 | Internal Med Progress Note ---
Date of Encounter: 07/23/17 Time of Encounter: 10:20 - Assessment and plan (1) Hematochezia Current Visit: Yes Status: Resolved Assessment and plan: No new episodes of hematochezia. Blood counts have remained stable since yesterday. (2) Acute exacerbation of chronic obstructive airways disease Current Visit: Yes Status: Acute Assessment and plan: Continue to taper steroids. Continue bronchodilators and O2 supplementation (3) Diabetes mellitus Current Visit: Yes Status: Chronic Assessment and plan: Well-controlled. Continue current sliding scale regimen. We will decrease long -acting insulin dosage as we taper her steroids. 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 Holding heparin due to hemorrhoidal bleeding. (5) Hypertension Current Visit: Yes Status: Chronic Qualifiers: Hypertension type: essential hypertension Qualified Code(s): I10 - Essential (primary) hypertension (6) Hypothyroidism Current Visit: Yes Status: Chronic Assessment and plan: Continue Synthroid Qualifiers: Hypothyroidism type: unspecified Qualified Code(s): E03.9 - Hypothyroidism , unspecified (7) Weakness Current Visit: Yes Status: Acute Assessment and plan: floor service worker spring consult placed to see if patient would benefit from placement to skilled rehabilitation. (8) Anemia Current Visit: Yes Status: Acute Assessment and plan: Acute on chronic. Most likely due to hemorrhoidal bleeding. Blood counts have stabilized now. Patient does have low iron levels. We will replete. Qualifiers: Anemia type: other cause Other causes of anemia: acute posthemorrhagic Qualified Code(s): D62 - Acute posthemorrhagic anemia - Subjective Interval history: Patient is lying in bed. Appears comfortable. She reports not doing well today but on being probed further and says that her breathing has improved. Denies any new episodes of bloody bowel movements. Does have some left lower subcostal pain especially with coughing. Denies any chest pain. No palpitations. No fever or chills overnight. Reports continued generalized weakness. - Constitutional Vitals: Temp Pulse Resp BP Pulse Ox 98.0 F 67 15 143/83 99 07/23/17 12:00 07/23/17 12:00 07/23/17 12:00 07/23/17 12:00 07/23/17 12:00 General appearance: Present: A&O X 3, pleasant, no acute distress, answers questions appropriately - Neck Neck exam general surgery: Present: supple, trachea midline. Absent: lymphadenopathy - Respiratory Respiratory exam: Present: prolonged expiratory phase. Absent: accessory muscle use, rales, rhonchi, wheezes - Cardiovascular Cardiovascular exam: Present: RRR, +S1, +S2. Absent: diastolic murmur, gallop, rubs, systolic murmur - GI/Abdominal GI/Abdominal exam: Present: normal bowel sounds, soft, no peritoneal signs. Absent: distended, tenderness - Extremities Exam Extremities exam: Present: warm, radial pulses palpable and symmetrical. Absent : calf tenderness, cyanotic, pedal edema Internal Medicine: Result - Labs CBC & Chem 7: 07/23/17 06:19 07/23/17 06:19 Labs: Short CBC 07/22/17 07/23/17 Range/Units 00:19 06:19 WBC 12.1 H D 9.3 (4.3-11.1) K/mcL Hgb 7.9 L 8.5 L (11.5-15.4) g/dL Hct 24.7 L 26.3 L (35.3-44.9) % Plt Count 228 230 (140-400) K/mcL Neutrophils # 9.6 H 6.0 (1.6-8.9) K/mcL BMP 07/23/17 06:19 Sodium 139 Potassium 3.4 L Chloride 104 Carbon Dioxide 31 H BUN 12 Creatinine 0.58 L Glucose 79 Calcium 8.7 - ABG Interpretation ABG results: PT/INR, D-dimer PT 11.6 Seconds (9.4-12.1) 07/20/17 00:42 D-Dimer 964 ng/mLFEU (0-500) H 07/19/17 09:29 Consult Discharge Plan - Plan Referrals: Kirstin Kraus DO [Primary Care Provider] - 07/31/17 8:45 am
[2017-07-23] MEDS: Latanoprost 2.5 ML BOTTLE BOTH EYES SCH (22:20)
[2017-07-23] MEDS: diazePAM 2 MG TABLET PO SCH (22:20)
[2017-07-24] MEDS: Ipratropium/Albuterol Neb 3 ML IH SCH ×5 (00:04→16:03)
[2017-07-24] MEDS ORDERED: Hydrocortisone Acetate 25 MG RECTAL SUPPOSITORY RC SCH (09:00)
[2017-07-24] MEDS: Insulin LISPRO 300 UNITS/3 ML VIAL SQ SCH ×3 (09:18→18:34)
[2017-07-24] MEDS: Lactobacillus 1 EACH CAP.SPRINK PO SCH (09:19)
[2017-07-24] MEDS: NIFEdipine XL (24 HR) 60 MG TAB.ER.24 PO SCH (09:19)
[2017-07-24] MEDS: Doxycycline 100 MG CAPSULE PO SCH (09:19)
[2017-07-24] MEDS: Sennosides/Docusate Sodium TABLET PO SCH (09:19)
[2017-07-24] MEDS: Insulin DETEMIR 100 UNIT/ML X5UNITS SQ SCH (09:23)
[2017-07-24] MEDS: Fluticasone Propionate Nasal 50 MCG/SPRAY BOTTLE NS SCH (09:23)
[2017-07-24 11:48] VITALS: BP 185/72
--- NOTE | 2017-07-24 14:11 | Discharge Summary ---
Date of Encounter: 07/24/17 Time of Encounter: 10:40 - Discharge Diagnosis (1) Acute exacerbation of chronic obstructive airways disease Priority: Primary Status: Acute (2) Hematochezia Priority: Secondary Status: Resolved (3) Diabetes mellitus Priority: Secondary Status: Chronic Qualifiers: Diabetes mellitus type: type 2 Diabetes mellitus complication status: with unspecified complications Diabetes mellitus terminal worker insulin use: without terminal worker use Qualified Code(s): E11.8 - Type 2 diabetes mellitus with unspecified complications (4) DVT prophylaxis Priority: Secondary Status: Acute (5) Hypertension Priority: Secondary Status: Chronic Qualifiers: Hypertension type: essential hypertension Qualified Code(s): I10 - Essential (primary) hypertension (6) Hypothyroidism Priority: Secondary Status: Chronic Qualifiers: Hypothyroidism type: unspecified Qualified Code(s): E03.9 - Hypothyroidism , unspecified (7) Weakness Priority: Secondary Status: Acute (8) Anemia Priority: Secondary Status: Acute Qualifiers: Anemia type: other cause Other causes of anemia: acute posthemorrhagic Qualified Code(s): D62 - Acute posthemorrhagic anemia - Discharge Medications Prescriptions: Amoxicillin/Clavulanate [Augmentin] 875 mg PO BIDWM #6 tablet Doxycycline 100 mg PO BID #6 capsule Ferrous Sulfate 325 mg PO BIDWM #60 tablet Potassium Chloride 20 meq PO DAILY #5 tab.er.prt predniSONE [PredniSONE] 10 mg PO DAILY 8 Days tablet Home Medications: Lisinopril 2.5 mg PO DAILY 07/01/15 [History] NIFEdipine [Nifedipine ER] 60 mg PO DAILY 07/01/15 [History] Sennosides/Docusate Sodium [Senna Plus] 1 - 2 each PO DAILY PRN 07/01/15 [ History] Simvastatin [Zocor] 20 mg PO HS 07/01/15 [History] Latanoprost [Xalatan] 1 drop BOTH EYES HS 04/04/17 [History] Acetylcysteine 10% 2 ml IH [id number] #42 inhsol 04/09/17 [Rx] Albuterol Neb [Proventil Neb] 2.5 mg IH Q2H PRN #0 inhsol 04/09/17 [Rx] Benzonatate [Tessalon] 100 mg PO TID PRN capsule 04/09/17 [Rx] Fluticasone Propionate Nasal [Flonase] 50 mcg NS DAILY #1 bottle 04/09/17 [Rx] Levothyroxine [Synthroid] 75 mcg PO 0630 tablet 04/09/17 [Rx] Saliva Stimulant [Biotene Moisturizing Rinse] 1 spray PO Q2H PRN bottle [Rx] carBAMazepine [Tegretol] 200 mg PO BID PRN tablet 04/09/17 [Rx] metFORMIN [Glucophage] 500 mg PO QAM 05/08/17 [History] diazePAM [Valium] 2 mg PO HS #7 tablet 05/11/17 [Rx] Guaifenesin [Mucinex] 600 mg PO BID PRN 07/19/17 [History] Ibuprofen [Motrin] 1 - 2 tab PO Q4HR 07/19/17 [History] Loperamide [Imodium] 2 mg PO DAILY PRN 07/19/17 [History] Amoxicillin/Clavulanate [Augmentin] 875 mg PO BIDWM #6 tablet 07/24/17 [Rx] Doxycycline 100 mg PO BID #6 capsule 07/24/17 [Rx] Ferrous Sulfate 325 mg PO BIDWM #60 tablet 07/24/17 [Rx] Hydrocortisone Acetate [Anucort-Hc] 25 mg RC DAILY supp.rect 07/24/17 [Rx] Lactobacillus [Culturelle] 1 each PO BID cap.sprink 07/24/17 [Rx] Potassium Chloride 20 meq PO DAILY #5 tab.er.prt 07/24/17 [Rx] predniSONE [PredniSONE] 10 mg PO DAILY 8 Days tablet 07/24/17 [Rx] Allergies/Adverse Reactions: 3 Allergy/AdvReac Type Severity Reaction Status Date / Time cephalexin [From Keflex] Allergy Difficulty Verified 04/03/17 20:14 Breathing levofloxacin [From Levaquin] Allergy Difficulty Verified 04/03/17 20:14 Breathing moxifloxacin [From Avelox] Allergy Difficulty Verified 04/03/17 20:14 Breathing Date of admission: 07/19/17 18:08 Primary care physician: Kirstin Kraus DO Consults: 07/20/17 10:03 Consult to Speech Therapy [CONS] Routine Comment: Evaluate, develop and implement POC Reason for Consult: difficulty swallowing Call Completed: No Discharging clinician: Alaina Parra Anticipated date of discharge: 07/24/17 - Patient Status Disposition: Transfer SNF Condition: Good Functional capacity at discharge: uses cane/walker Overall status at discharge: patient is progressing back to baseline - Discharge Instructions Instructions: Hypothyroidism (DC), Diabetes Mellitus Type 2 in Adults (DC), Chronic Obstructive Pulmonary Disease (DC), Chronic Hypertension (DC), Anemia ( GEN) Follow Up With: Kirstin Kraus DO [Primary Care Provider] - 07/31/17 8:45 am - Diet and Activity Activity: as per physical therapy, increase activity as tolerated, wear oxygen at all times Diet: diabetic diet, low fat, low cholesterol, low salt diet Hospital course: Ms. Lares is a 87 year old female patient with history of COPD, diabetes mellitus type 2, was hospitalized here with acute exacerbation of COPD. She was treated with bronchodilators, antibiotics and intravenous steroids. Her condition has slowly improved with this treatment regimen. She did report hematochezia from her hemorrhoids which are chronic. She had been receiving heparin which was then stopped. Her blood counts were monitored closely. They did drop down to 7.9 but has since improved. She has had no further episodes of GI bleeding. She was treated for hemorrhoids with hydrocortisone suppository. She was evaluated by physical therapy and recommended home health. However patient has been telling him for the past couple of days that she does not feel safe to be at home as she is very weak and not able to do her activities of daily living. commissary worker has been consulted to help plan a safe discharge for the patient. She is medically stable to be discharged on steroid taper and short course of antibiotics. She will be discharged either to skilled rehabilitation or home with home health at assisted living facility based on review by manager social responsibility. - Time Spent with Patient Total time spent providing and/or coordinating discharge services: Greater than 30 minutes (45 min) - Constitutional Vitals: Temp Pulse Resp BP Pulse Ox 98.5 F 67 16 185/72 99 07/24/17 11:46 07/24/17 11:46 07/24/17 11:46 07/24/17 11:46 07/24/17 11:46 General appearance: Present: cooperative, A&O X 2, pleasant, no acute distress, answers questions appropriately - Neck Neck exam general surgery: Present: supple, trachea midline. Absent: lymphadenopathy - Respiratory Respiratory exam: Present: prolonged expiratory phase, wheezes (mild expiratory) . Absent: accessory muscle use, rales, rhonchi - Cardiovascular Cardiovascular exam: Present: RRR, +S1, +S2. Absent: diastolic murmur, gallop, rubs, systolic murmur - GI/Abdominal GI/Abdominal exam: Present: normal bowel sounds, soft, no peritoneal signs. Absent: distended, tenderness - Extremities Exam Extremities exam: Present: warm, radial pulses palpable and symmetrical. Absent : calf tenderness, cyanotic, pedal edema - Neurological Exam Neurological exam: Present: alert, CN II-XII intact, no focal deficits. Absent : facial droop, speech deficit
--- NOTE | 2017-07-24 15:24 | Physician Discharge Referral ---
ExtendedCare Referral Info Provider in Charge after Transfer: PCP Institutional Level of Care: Skilled - Diagnosis (1) Acute exacerbation of chronic obstructive airways disease Priority: Primary Status: Acute (2) Hematochezia Priority: Secondary Status: Resolved (3) Diabetes mellitus Priority: Secondary Status: Chronic (4) DVT prophylaxis Priority: Secondary Status: Acute (5) Hypertension Priority: Secondary Status: Chronic (6) Hypothyroidism Priority: Secondary Status: Chronic (7) Weakness Priority: Secondary Status: Acute (8) Anemia Priority: Secondary Status: Acute Prognosis: Fair Aware of Diagnosis: Patient, Family Aware of Prognosis: Patient, Family - Transfer Medications Prescriptions: Amoxicillin/Clavulanate [Augmentin] 875 mg PO BIDWM #6 tablet Doxycycline 100 mg PO BID #6 capsule Ferrous Sulfate 325 mg PO BIDWM #60 tablet Potassium Chloride 20 meq PO DAILY #5 tab.er.prt predniSONE [PredniSONE] 10 mg PO DAILY 8 Days tablet Home Medications: Lisinopril 2.5 mg PO DAILY 07/01/15 [History] NIFEdipine [Nifedipine ER] 60 mg PO DAILY 07/01/15 [History] Sennosides/Docusate Sodium [Senna Plus] 1 - 2 each PO DAILY PRN 07/01/15 [ History] Simvastatin [Zocor] 20 mg PO HS 07/01/15 [History] Latanoprost [Xalatan] 1 drop BOTH EYES HS 04/04/17 [History] Acetylcysteine 10% 2 ml IH [id number] #42 inhsol 04/09/17 [Rx] Albuterol Neb [Proventil Neb] 2.5 mg IH Q2H PRN #0 inhsol 04/09/17 [Rx] Benzonatate [Tessalon] 100 mg PO TID PRN capsule 04/09/17 [Rx] Fluticasone Propionate Nasal [Flonase] 50 mcg NS DAILY #1 bottle 04/09/17 [Rx] Levothyroxine [Synthroid] 75 mcg PO 0630 tablet 04/09/17 [Rx] Saliva Stimulant [Biotene Moisturizing Rinse] 1 spray PO Q2H PRN bottle [Rx] carBAMazepine [Tegretol] 200 mg PO BID PRN tablet 04/09/17 [Rx] metFORMIN [Glucophage] 500 mg PO QAM 05/08/17 [History] diazePAM [Valium] 2 mg PO HS #7 tablet 11/02/17 [Rx] Guaifenesin [Mucinex] 600 mg PO BID PRN 07/19/17 [History] Ibuprofen [Motrin] 1 - 2 tab PO Q4HR 07/19/17 [History] Loperamide [Imodium] 2 mg PO DAILY PRN 07/19/17 [History] Amoxicillin/Clavulanate [Augmentin] 875 mg PO BIDWM #6 tablet 07/24/17 [Rx] Doxycycline 100 mg PO BID #6 capsule 07/24/17 [Rx] Ferrous Sulfate 325 mg PO BIDWM #60 tablet 07/24/17 [Rx] Hydrocortisone Acetate [Anucort-Hc] 25 mg RC DAILY supp.rect 07/24/17 [Rx] Lactobacillus [Culturelle] 1 each PO BID cap.sprink 07/24/17 [Rx] Potassium Chloride 20 meq PO DAILY #5 tab.er.prt 07/24/17 [Rx] predniSONE [PredniSONE] 10 mg PO DAILY 8 Days tablet 07/24/17 [Rx] Allergies/Adverse Reactions: 3 Allergy/AdvReac Type Severity Reaction Status Date / Time cephalexin [From Keflex] Allergy Difficulty Verified 04/03/17 20:14 Breathing levofloxacin [From Levaquin] Allergy Difficulty Verified 04/03/17 20:14 Breathing moxifloxacin [From Avelox] Allergy Difficulty Verified 04/03/17 20:14 Breathing - Respiratory Orders Oxygen / L per min (2) Smoking Cessation: Smoking cessation has been advised. For more information, call the [place] Tobacco Quit Line at 6-422-FKDF-NOW. - Ancillary Orders May consult with Dentist, Director Home Health, Competitive [employer]pper PRN - Advance Directives Code Status: Full Code - Mobility Orders Ambulate (per PT) - Rehabiliation Orders Rehab Potential: Good Rehab Orders: Evaluation for Physical Therapy, Evaluation for Occupational Therapy - Diet Orders No Added Salt (BLANCHE), No Concentrated Sweets (Diabetic), Cardiac CERTIFICATION: I certify that the transfer of the above named patient to an Extended Care Facility is necessary for the continuing treatment of the diagnosis listed. The above information is true and accurate reflection of patient's current condition. Confidential - Redisclosure prohibited without a patient's written consent.
--- NOTE | 2017-07-25 10:47 | Physician Discharge Referral ---
Home Health/Hosp Referral Info Transfer to: Home Health Provider in Charge Post Discharge: PCP - Diagnosis (1) Acute exacerbation of chronic obstructive airways disease Priority: Primary Status: Acute (2) Hematochezia Priority: Secondary Status: Resolved (3) Diabetes mellitus Priority: Secondary Status: Chronic (4) DVT prophylaxis Priority: Secondary Status: Acute (5) Hypertension Priority: Secondary Status: Chronic (6) Hypothyroidism Priority: Secondary Status: Chronic (7) Weakness Priority: Secondary Status: Acute (8) Anemia Priority: Secondary Status: Acute - Respiratory Orders Smoking Cessation: Smoking cessation has been advised. For more information, call the [place] Tobacco Quit Line at 0-349-TKYU-NOW. - Diet/Nutrition Diet/Nutrition Orders: Cardiac - Activity Activity Orders: Walker - Services Needed Following services are medically necessary services: Nursing, Home Health Aide, Physical Therapy, Occupational Therapy - Transfer Medications Prescriptions: Amoxicillin/Clavulanate [Augmentin] 875 mg PO BIDWM #6 tablet Doxycycline 100 mg PO BID #6 capsule Ferrous Sulfate 325 mg PO BIDWM #60 tablet Potassium Chloride 20 meq PO DAILY #5 tab.er.prt predniSONE [PredniSONE] 10 mg PO DAILY 8 Days tablet Home Medications: Lisinopril 2.5 mg PO DAILY 07/01/15 [History] NIFEdipine [Nifedipine ER] 60 mg PO DAILY 07/01/15 [History] Sennosides/Docusate Sodium [Senna Plus] 1 - 2 each PO DAILY PRN 07/01/15 [ History] Simvastatin [Zocor] 20 mg PO HS 07/01/15 [History] Latanoprost [Xalatan] 1 drop BOTH EYES HS 04/04/17 [History] Acetylcysteine 10% 2 ml IH [id number] #42 inhsol 04/09/17 [Rx] Albuterol Neb [Proventil Neb] 2.5 mg IH Q2H PRN #0 inhsol 04/09/17 [Rx] Benzonatate [Tessalon] 100 mg PO TID PRN capsule 04/09/17 [Rx] Fluticasone Propionate Nasal [Flonase] 50 mcg NS DAILY #1 bottle 04/09/17 [Rx] Levothyroxine [Synthroid] 75 mcg PO 0630 tablet 04/09/17 [Rx] Saliva Stimulant [Biotene Moisturizing Rinse] 1 spray PO Q2H PRN bottle [Rx] carBAMazepine [Tegretol] 200 mg PO BID PRN tablet 04/09/17 [Rx] metFORMIN [Glucophage] 500 mg PO QAM 05/08/17 [History] diazePAM [Valium] 2 mg PO HS #7 tablet 05/11/17 [Rx] Guaifenesin [Mucinex] 600 mg PO BID PRN 07/19/17 [History] Ibuprofen [Motrin] 1 - 2 tab PO Q4HR 07/19/17 [History] Loperamide [Imodium] 2 mg PO DAILY PRN 07/19/17 [History] Amoxicillin/Clavulanate [Augmentin] 875 mg PO BIDWM #6 tablet 07/24/17 [Rx] Doxycycline 100 mg PO BID #6 capsule 07/24/17 [Rx] Ferrous Sulfate 325 mg PO BIDWM #60 tablet 07/24/17 [Rx] Hydrocortisone Acetate [Anucort-Hc] 25 mg RC DAILY supp.rect 07/24/17 [Rx] Lactobacillus [Culturelle] 1 each PO BID cap.sprink 07/24/17 [Rx] Potassium Chloride 20 meq PO DAILY #5 tab.er.prt 07/24/17 [Rx] predniSONE [PredniSONE] 10 mg PO DAILY 8 Days tablet 07/24/17 [Rx] Allergies/Adverse Reactions: 3 Allergy/AdvReac Type Severity Reaction Status Date / Time cephalexin [From Keflex] Allergy Difficulty Verified 04/03/17 20:14 Breathing levofloxacin [From Levaquin] Allergy Difficulty Verified 04/03/17 20:14 Breathing moxifloxacin [From Avelox] Allergy Difficulty Verified 04/03/17 20:14 Breathing Certification: Further, I certify that my clinical findings support that this patient is homebound (i.e. absences from home require considerable and taxing effort and are for medical reasons or catholic services or infrequently or short duration when for other reasons) because: Homebound Reason: Patient requires assistance of a person or device to safely leave home Attestation: My signature below is to certify that this patient is under my care and that I, or nurse practitioner, or a physician's media assistant working with me, has a face-to -face encounter with this patient.
== END 2017-07-24 18:47 | DRG 191 ==
LOC: EMEROO 06:26 → 3BNU 06:26 → SUATTDRO 18:08
PROVIDERS: ADMIT Internal Medicine; ATTEND Internal Medicine

== ENCOUNTER 2017-08-13 16:46 | Inpatient (IN) ==
[2017-08-13] MEDS ORDERED: Ipratropium/Albuterol Neb 3 ML IH ONE (16:51)
[2017-08-13] MEDS ORDERED: predniSONE 20 MG TABLET PO ONE (16:51)
[2017-08-13] MEDS ORDERED: methylPREDNISolone 125 MG/2 ML VIAL IVP ONE (16:59)
--- NOTE | 2017-08-13 17:09 | Emergency Department Note ---
Disposition Clinical Impression: COPD exacerbation, Shortness of breath at rest, Hypoxia Disposition: Admitted As Inpatient Condition: Fair Time of Disposition: 19:39 SOB HPI - General Chief Complaint: ED Shortness of Breath/Dyspnea Stated Complaint: LISSY Time Seen by Provider: 08/13/17 16:50 Source: patient, EMS Limitations: no limitations Nursing Notes Reviewed: Yes Vital Signs Reviewed: Yes - History of Present Illness 87-year-old female complains of severe shortness of breath that started one night ago. Patient denies chest pain. Patient states that she has history of COPD. Patient's daughter at bedside states that her PCP Dr. Holly has recently discontinued one of her medications. Patient's daughter states that since the medication was discontinued she started having onset of worsening breathing has gotten progressively worse over the past 2 days. Patient was brought in by EMS from assisted living [facility]. Patient is on oxygen 30/01. - Related Data Home Medications Medication Instructions Recorded Confirmed Lisinopril 2.5 mg PO DAILY 07/01/15 07/19/17 NIFEdipine [Nifedipine ER] 60 mg PO DAILY 07/01/15 07/19/17 Sennosides/Docusate Sodium [Senna 1 - 2 each PO DAILY PRN 07/01/15 07/19/17 Plus] Simvastatin [Zocor] 20 mg PO HS 07/01/15 07/19/17 Latanoprost [Xalatan] 1 drop BOTH EYES HS 04/04/17 07/19/17 metFORMIN [Glucophage] 500 mg PO QAM 05/08/17 07/19/17 Guaifenesin [Mucinex] 600 mg PO BID PRN 07/19/17 07/19/17 Ibuprofen [Motrin] 1 - 2 tab PO Q4HR 07/19/17 07/19/17 Loperamide [Imodium] 2 mg PO DAILY PRN 07/19/17 07/19/17 Previous Rx's Medication Instructions Recorded Acetylcysteine 10% 2 ml IH [id number] #42 inhsol 04/09/17 Albuterol Neb [Proventil Neb] 2.5 mg IH Q2H PRN #0 inhsol 04/09/17 Benzonatate [Tessalon] 100 mg PO TID PRN capsule 04/09/17 Fluticasone Propionate Nasal 50 mcg NS DAILY #1 bottle 04/09/17 [Flonase] Levothyroxine [Synthroid] 75 mcg PO 0630 tablet 04/09/17 Saliva Stimulant [Biotene 1 spray PO Q2H PRN bottle 04/09/17 Moisturizing Rinse] carBAMazepine [Tegretol] 200 mg PO BID PRN tablet 04/09/17 diazePAM [Valium] 2 mg PO HS #7 tablet 05/11/17 Amoxicillin/Clavulanate [Augmentin] 875 mg PO BIDWM #6 tablet 07/24/17 Doxycycline 100 mg PO BID #6 capsule 07/24/17 Ferrous Sulfate 325 mg PO BIDWM #60 tablet 07/24/17 Hydrocortisone Acetate [Anucort-Hc] 25 mg RC DAILY supp.rect 07/24/17 Lactobacillus [Culturelle] 1 each PO BID cap.sprink 07/24/17 Potassium Chloride 20 meq PO DAILY #5 tab.er.prt 07/24/17 predniSONE [PredniSONE] 10 mg PO DAILY 8 Days tablet 07/24/17 Allergies Allergy/AdvReac Type Severity Reaction Status Date / Time cephalexin [From Keflex] Allergy Difficulty Verified 04/03/17 20:14 Breathing levofloxacin [From Levaquin] Allergy Difficulty Verified 04/03/17 20:14 Breathing moxifloxacin [From Avelox] Allergy Difficulty Verified 04/03/17 20:14 Breathing All systems ED: reviewed and negative except as stated. Review of Systems: As Per HPI Constitutional: Denies: fever, chills, weakness Eyes: Denies: vision change ENT ED: Reports: congestion Cardiovascular: Denies: chest pain, palpitations Respiratory: Reports: cough, dyspnea, wheezes Gastrointestinal: Denies: abdominal pain, nausea, vomiting, diarrhea Past Medical History - Past Medical History Attestation: Yes The following information was validated with the patient. 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 - Social History Smoking Status: Former smoker Smokeless Tobacco Status: No Alcohol use: Reports: none Drug use: Reports: none Physical Exam Vital Signs Temperature 98.4 F 08/13/17 16:48 Pulse Rate 91 08/13/17 16:48 Respiratory Rate 26 08/13/17 16:48 Blood Pressure 154/65 08/13/17 16:48 O2 Sat by Pulse Oximetry 90 08/13/17 16:48 Temperature 98.4 F 08/13/17 16:48 Pulse Rate 91 08/13/17 16:48 Respiratory Rate 26 08/13/17 16:48 Blood Pressure 154/65 08/13/17 16:48 O2 Sat by Pulse Oximetry 100 08/13/17 16:53 Oxygen Delivery Oxygen Delivery Nasal Cannula CONSTITUTIONAL: Alert and oriented X3, well-nourished, well appearing, patient in distress secondary to difficulty in breathing. Patient is afebrile with a pulse of 91, tachypneic at 26 breaths per minute and it, and hypertensive 154/ 65. Patient's O2 sats 90 on 2 L. Patient has been transferred onto our oxygen system at 5 L/m and currently satting at 100% HEAD: Normocephalic; atraumatic. EYES: PERRL, no scleral icterus. NOSE: The nose is normal in appearance without rhinorrhea RESP: Normal chest excursion with respiration; lung sounds with bilateral wheezes and rhonchi. CARD: Regular rhythm, without murmurs, rub or gallop ABD: Non-distended; non-tender, soft,without rigidity, rebound or guarding SKIN: Normal for age and race; warm and dry; no apparent lesions - General Limitations: no limitations General appearance: alert Course - Reevaluation(s) Reevaluation #1: Chest x-ray negative for pneumonia Time: 18:17 Reevaluation #2: Reexamination patient still with heavy wheeze and rhonchi bilateral lung vela. Ordered send 7.5 albuterol neb. Current plan is for admission secondary to COPD exacerbation with failure to return to baseline. Patient is at risk for acute decompensation if she were to be discharged home. Patient understands and agrees with this plan of treatment. Time: 19:01 Vital Signs Temperature 98.4 F 08/13/17 16:48 Pulse Rate 91 08/13/17 16:48 Respiratory Rate 26 08/13/17 16:48 Blood Pressure 154/65 08/13/17 16:48 O2 Sat by Pulse Oximetry 90 08/13/17 16:48 Temperature 98.4 F 08/13/17 16:48 Pulse Rate 104 08/13/17 19:18 Respiratory Rate 22 08/13/17 19:18 Blood Pressure 122/93 08/13/17 19:18 O2 Sat by Pulse Oximetry 979 08/13/17 19:18 Oxygen Delivery Oxygen Delivery Nasal Cannula Shortness of Breath/Dyspnea - MDM Narrative Medical decision making narrative: 87-year-old female with history of COPD and recent difficulty in breathing concerning for COPD exacerbation secondary to possible infectious etiology. Chest x-ray ordered. Patient denies chest pain but will check for any cardiac involvement with labs: CBC, BMP, troponin, and lactic acid. DuoNeb therapy ordered 3, 125 methylprednisolone ordered IV. Patient continues to be symptomatic with shortness of breath even after DuoNeb therapy 3. Ordered albuterol nebulizer. Her breathing is improving but she still has heavy wheezing and rhonchi bilateral lung vela on reexamination. Patient's lab work is unremarkable for any changes to her normal baseline. Patient's troponin was negative, and her EKG is nonischemic. This looks like to be appears COPD exacerbation with failure to return to baseline. Patient will be admitted for treatment and continued evaluation. Patient understands and agrees to treatment and plan for admission. Dr. Aceves the hospitalist has accepted patient for admission. Patient is currently in stable condition and does not require BiPAP at this time - Lab Data Lab results reviewed: Yes I reviewed the patient's lab results. Lab results narrative: Short CBC 08/13/17 Range/Units 17:20 WBC 5.6 (4.3-11.1) K/mcL Hgb 9.4 L (11.5-15.4) g/dL Hct 30.4 L (35.3-44.9) % Plt Count 274 (140-400) K/mcL Neutrophils # 3.1 (1.6-8.9) K/mcL BMP 08/13/17 Range/Units 17:20 Sodium 136 (136-145) mEq/L Potassium 3.6 (3.5-5.1) mEq/L Chloride 98 (98-107) mEq/L Carbon Dioxide 32 H (23-29) mEq/L BUN 9 (8-23) mg/dL Creatinine 0.66 (0.60-1.20) mg/dL Glucose 102 (70-105) mg/dL Calcium 8.9 (8.6-10.3) mg/dL Cardiac Enzymes 02/04/18 Range/Units 17:20 Troponin I < 0.03 (< 0.04) ng/mL Result diagrams: 08/13/17 17:20 08/13/17 17:20 Lab Results 08/13/17 08/13/17 08/13/17 Range/Units 17:20 17:20 17:20 WBC 5.6 (4.3-11.1) K/mcL RBC 2.94 L (3.82-4.97) M/mcL Hgb 9.4 L (11.5-15.4) g/dL Hct 30.4 L (35.3-44.9) % MCV 103.4 H (83.0-100.0) fL MCH 32.0 (28.0-33.3) pg MCHC 30.9 L (31.6-35.5) g/dL RDW 13.2 (11.5-14.5) % Plt Count 274 (140-400) K/mcL MPV 9.2 L (9.4-12.4) fL Immature Gran % 0.2 (0-4) % Seg Neutrophils % 55.4 % Lymphocytes % 20.3 % Monocytes % 11.0 % Eosinophils % 12.6 % Basophils % 0.5 % Neutrophils # 3.1 (1.6-8.9) K/mcL Lymphocytes # 1.1 (0.6-4.6) K/mcL Monocytes # 0.6 (0.0-1.3) K/mcL Eosinophils # 0.7 H (0.0-0.6) K/mcL Basophils # 0.0 (0.0-0.2) K/mcL Sodium 136 (136-145) mEq/L Potassium 3.6 (3.5-5.1) mEq/L Chloride 98 (98-107) mEq/L Carbon Dioxide 32 H (23-29) mEq/L BUN 9 (8-23) mg/dL Creatinine 0.66 (0.60-1.20) mg/dL Est GFR ( Amer) > 60 (> 60) Est GFR (Non-Af Amer) > 60 (> 60) BUN/Creatinine Ratio 14 (6-26) Glucose 102 (70-105) mg/dL Calculated Osmolality 281 (280-300) Lactic Acid 0.9 (0.5-2.2) mmol/L Calcium 8.9 (8.6-10.3) mg/dL Troponin I (< 0.04) ng/mL B-Natriuretic Peptide (Less than 100) pg/mL 08/13/17 08/13/17 Range/Units 17:20 17:20 WBC (4.3-11.1) K/mcL RBC (3.82-4.97) M/mcL Hgb (11.5-15.4) g/dL Hct (35.3-44.9) % MCV (83.0-100.0) fL MCH (28.0-33.3) pg MCHC (31.6-35.5) g/dL RDW (11.5-14.5) % Plt Count (140-400) K/mcL MPV (9.4-12.4) fL Immature Gran % (0-4) % Seg Neutrophils % % Lymphocytes % % Monocytes % % Eosinophils % % Basophils % % Neutrophils # (1.6-8.9) K/mcL Lymphocytes # (0.6-4.6) K/mcL Monocytes # (0.0-1.3) K/mcL Eosinophils # (0.0-0.6) K/mcL Basophils # (0.0-0.2) K/mcL Sodium (136-145) mEq/L Potassium (3.5-5.1) mEq/L Chloride (98-107) mEq/L Carbon Dioxide (23-29) mEq/L BUN (8-23) mg/dL Creatinine (0.60-1.20) mg/dL Est GFR ( Amer) (> 60) Est GFR (Non-Af Amer) (> 60) BUN/Creatinine Ratio (6-26) Glucose (70-105) mg/dL Calculated Osmolality (280-300) Lactic Acid (0.5-2.2) mmol/L Calcium (8.6-10.3) mg/dL Troponin I < 0.03 (< 0.04) ng/mL B-Natriuretic Peptide 123 H (Less than 100) pg/mL - Radiology Data Radiology results reviewed: Yes I reviewed the patient's radiology results. Chest X-Ray 08/13/17 16:51 IMPRESSION: No acute disease. D/ / Radha Mclain Cha, MD / Radha Mclain Cha, MD Interpreting Provider: Radha Mclain Cha, MD - EKG Data EKG attestation: Yes I reviewed and interpreted this EKG. EKG results narrative: EKG taken for August 2017 at 1703 hours shows sinus rhythm at a rate of [address] elevations or depressions in any leads, no QRS widening or QT prolongation. This EKG is comparable and very similar to previous EKG taken 07/19/2017, which also shows a sinus rhythm, both EKGs show no signs of ischemia
[2017-08-13 17:28] LABS: Basophils % 0.5 %; Eosinophils # 0.7 K/mcL (0.0-0.6); Eosinophils % 12.6 %; Hematocrit 30.4 % (35.3-44.9); Hemoglobin 9.4 g/dL (11.5-15.4); Immature Granulocytes % 0.2 % (0-4); Lymphocytes # 1.1 K/mcL (0.6-4.6); Lymphocytes % 20.3 %; Mean Corpuscular HGB Conc 30.9 g/dL (31.6-35.5); Mean Corpuscular Volume 103.4 fL (83.0-100.0); Mean Platelet Volume 9.2 fL (9.4-12.4); Monocytes # 0.6 K/mcL (0.0-1.3); Neutrophils # 3.1 K/mcL (1.6-8.9); Platelet Count 274 K/mcL (140-400); Red Blood Count 2.94 M/mcL (3.82-4.97); Red Cell Distribution Width 13.2 % (11.5-14.5); Segmented Neutrophils % 55.4 %
--- NOTE | 2017-08-13 17:46 | Emergency Department Note ---
START Narrative - START START: I examined this patient and my medical decision-making was reviewed with the Resident Physician, Bakari Milian. I agree with the documented findings, disposition and treatment plan as described except to the extent set forth below. I have personally performed a face to face evaluation on this patient. I have reviewed and agree with the care plan. Briefly: A 87-year-old female comes by family members by EMS from her nursing home facility for cough shortness breath and weakness. Patient has a history of COPD presents with several days of increasing symptoms. Some increased sputum shortness of breath nursing home facility personnel noted that she was having rhonchi bilaterally. No recorded or documented fever. Patient denies chest pain. EKG shows no acute ischemic changes but she has bilateral auditory wheezing and rhonchi throughout her lung vela. Patient is slightly tachycardic and her pulse ox is 90% on 3 L/m nasal cannula. Patient is getting a triple DuoNeb and oral steroids screening labs and chest x-ray. Providing 35 minutes of critical care services to this patient. Disposition pending
[2017-08-13 17:50] LABS: BUN/Creatinine Ratio 14 (6-26); Blood Urea Nitrogen 9 mg/dL (8-23); Calcium 8.9 mg/dL (8.6-10.3); Carbon Dioxide 32 mEq/L (23-29); Chloride 98 mEq/L (98-107); Glucose 102 mg/dL (70-105); Osmolality,Calculated 281 (280-300); Potassium 3.6 mEq/L (3.5-5.1); Sodium 136 mEq/L (136-145); eGFR For African Americans > 60 (> 60); eGFR For Non-African Americans > 60 (> 60)
[2017-08-13] MEDS ORDERED: Albuterol 2.5 MG/3 ML NEBULIZER IH ONE (19:02)
[2017-08-13] MEDS ORDERED: D5% in Water 1,000 ML IVC PRN (21:45)
[2017-08-13] MEDS ORDERED: Dextrose Gel 15 GM/37.5 ML TUBE PO PRN ×2 (21:45)
[2017-08-13] MEDS ORDERED: *HR* Dextrose 50 % in Water (Syg) 50 ML SYRINGE IVP PRN (21:45)
[2017-08-13] MEDS ORDERED: traMADol 50 MG TABLET PO PRN (21:45)
[2017-08-13] MEDS ORDERED: Naloxone 0.4 MG/ML INJ IVP PRN (21:45)
[2017-08-13] MEDS ORDERED: 0.9 % Sodium Chloride 1,000 ML IVC SCH (21:45)
[2017-08-13] MEDS ORDERED: Ondansetron 4 MG/2 ML VIAL IVP ONE (21:51)
[2017-08-13] MEDS ORDERED: Albuterol 2.5 MG/3 ML NEBULIZER IH PRN (21:51)
[2017-08-13] MEDS ORDERED: Ondansetron ODT 4 MG TAB.RAPDIS SL PRN (21:52)
--- NOTE | 2017-08-13 22:03 | Internal Med History&Physical ---
<Trever Burns - Last Filed: 08/13/17 22:34> Date of Encounter: 08/13/17 Time of Encounter: 21:35 Assessment and Plan (1) Acute exacerbation of chronic obstructive airways disease Current visit: No Status: Acute Audible ambient wheezes on expiration; no acute respiratory distress Denies flu-like symptoms aside from non-productive cough; doubt infectious etiology 1) duonebs q4h and albuterol neb q2h prn 2) cont prednisone burst 40mg PO daily x5 days; received first dose 08/13/17 3) O2 via NC to maintain SpO2 >88%; baseline demand is 3L 4) hold antibiotics 5) cont tele and cont SpO2 (2) Diabetes mellitus Current visit: No Status: Chronic Last A1c was 6.7% 1) Low-Dose SSI with FSBG TID-AC-HS 2) DM Diet 3) Recheck A1c in AM due to prior having been in March of 2017 Qualifiers: Diabetes mellitus type: type 2 Diabetes mellitus complication status: with unspecified complications Diabetes mellitus group home insulin use: without keno terminal operator use Qualified Code(s): E11.8 - Type 2 diabetes mellitus with unspecified complications (3) Anxiety Current visit: No Status: Chronic Pt requests meds to help sleep 1) meds verified by RN and will be continued (4) Hypertension Current visit: No Status: Chronic 1)Monitor BP with qshift vitals 2) Cont home meds beginning in the AM Qualifiers: Hypertension type: essential hypertension Qualified Code(s): I10 - Essential (primary) hypertension (5) Hypothyroidism Current visit: No Status: Chronic Cont usual Synthroid when verified Qualifiers: Hypothyroidism type: unspecified Qualified Code(s): E03.9 - Hypothyroidism , unspecified (6) Anemia Current visit: No Status: Acute Chronic and Stable 1) will observe with AM CBC Qualifiers: Anemia type: other cause Other causes of anemia: acute posthemorrhagic Qualified Code(s): D62 - Acute posthemorrhagic anemia (7) DVT prophylaxis Current visit: No Status: Acute subcutaneous heparin up with assist Internal Medicine - H&P: HPI Chief complaint: "Couldn't breathe" Admitted From: Emergency Dept Plans for Post Hospital Care: Home History of present illness: Ms. Lares is a 87 year old female with history of COPD and extensive smoking history admitted for acute exacerbation of COPD. Patient describes 60 pack year history and baseline O2 dependence of 3Lpm at home; does not use BIPAP/ CPAP routinely. For the past week, patient has had worsening non-productive cough and progressively worse shortness of air. Woke up this AM feeling like she couldn't breathe; symptoms not amenable to home breathing treatments/O2. Denies fevers, diaphoresis, presyncope/syncope, chest pain, palpitations, nausea , vomiting, diarrhea, dysuria, or atypical pedal edema. Does have audible wheeze. ED gave breathing treatments which significantly improved patient's symptoms. Overall work up otherwise negative including CXR, WBC, troponin, and lactate; did have BNP of 123. Initial steroids given in ED. Otherwise, patient denies other symptoms, sick contacts, or medication changes. Patient explicitly expresses FULL CODE status. Past Med Surg Social Fam HX - Past Medical History Attestation: Yes The following information was validated with the patient. Source: patient Medical history: arthritis, COPD, diabetes, GERD, glaucoma, hypertension, osteoporosis, thyroid disease, other Psychiatric history: anxiety - Past Surgical History Surgical History: no surgical history - Social History Smoking Status: Former smoker Smokeless Tobacco Status: No Alcohol use: none Drug use: none - Family History Father Name: Narayan Castro Age at : 82 Cause of : Colon cx Hx Family Cancer: Yes (Colon, skin) Mother Name: David Castro Living Status: Age at : 58 Cause of : Cardiac issues Hx Family Cardiac Disorders: Yes (Varicose veins) Internal Medicine - H&P: Meds Lisinopril 2.5 mg PO DAILY 07/01/15 [History] NIFEdipine [Nifedipine ER] 60 mg PO DAILY 07/01/15 [History] Simvastatin [Zocor] 20 mg PO HS 07/01/15 [History] Latanoprost [Xalatan] 1 drop BOTH EYES HS 04/04/17 [History] Acetylcysteine 10% 2 ml IH [id number] #[id number] inhsol 04/09/17 [Rx] Albuterol Neb [Proventil Neb] 2.5 mg IH Q2H PRN #0 inhsol 04/09/17 [Rx] Benzonatate [Tessalon] 100 mg PO TID PRN capsule 04/09/17 [Rx] Fluticasone Propionate Nasal [Flonase] 50 mcg NS DAILY #1 bottle 04/09/17 [Rx] Levothyroxine [Synthroid] 75 mcg PO 0630 tablet 04/09/17 [Rx] Saliva Stimulant [Biotene Moisturizing Rinse] 1 spray PO Q2H PRN bottle [Rx] carBAMazepine [Tegretol] 200 mg PO BID PRN tablet 04/09/17 [Rx] metFORMIN [Glucophage] 500 mg PO QAM 05/08/17 [History] diazePAM [Valium] 2 mg PO HS #7 tablet 05/11/17 [Rx] Guaifenesin [Mucinex] 600 mg PO BID PRN 07/19/17 [History] Ibuprofen [Motrin] 1 - 2 tab PO Q4HR 07/19/17 [History] Loperamide [Imodium] 2 mg PO DAILY PRN 07/19/17 [History] Amoxicillin/Clavulanate [Augmentin] 875 mg PO BIDWM #6 tablet 07/24/17 [Rx] Doxycycline 100 mg PO BID #6 capsule 07/24/17 [Rx] Ferrous Sulfate 325 mg PO BIDWM #60 tablet 07/24/17 [Rx] Hydrocortisone Acetate [Anucort-Hc] 25 mg RC DAILY supp.rect 07/24/17 [Rx] Lactobacillus [Culturelle] 1 each PO BID cap.sprink 07/24/17 [Rx] Potassium Chloride 20 meq PO DAILY #5 tab.er.prt 07/24/17 [Rx] predniSONE [PredniSONE] 10 mg PO DAILY 8 Days tablet 07/24/17 [Rx] 3 Allergy/AdvReac Type Severity Reaction Status Date / Time cephalexin [From Keflex] Allergy Difficulty Verified 04/03/17 20:14 Breathing levofloxacin [From Levaquin] Allergy Difficulty Verified 04/03/17 20:14 Breathing moxifloxacin [From Avelox] Allergy Difficulty Verified 04/03/17 20:14 Breathing All Systems PM: A 10-system review of systems was performed and is negative for pertinent findings except as documented above in the HPI. - Constitutional Vitals: Temp Pulse Resp BP Pulse Ox 98.5 F 98 20 121/67 95 08/13/17 20:56 08/13/17 20:56 08/13/17 20:56 08/13/17 20:56 08/13/17 20:56 General appearance: Present: A&O X 3, no acute distress, answers questions appropriately - Head Head exam: Present: atraumatic, normocephalic - Eye Eye exam: Present: PERRL, conjuntiva pink, sclera anicteric - Neck Neck exam general surgery: Present: supple, trachea midline. Absent: lymphadenopathy - Respiratory Respiratory exam: Present: CTAB, wheezes. Absent: accessory muscle use, rales, rhonchi, stridor, tachypnea - Cardiovascular Cardiovascular exam: Present: RRR, +S1, +S2. Absent: diastolic murmur, gallop, rubs, +S3, +S4, systolic murmur, tachycardia Additional comments: Pulse rate 90s on bedside monitor - GI/Abdominal GI/Abdominal exam: Present: soft. Absent: distended, firm, guarding, rigid, tenderness - Extremities Exam Extremities exam: Present: pedal edema, warm, radial pulses palpable and symmetrical. Absent: calf tenderness, cyanotic Additional comments: Mild b/l LE pitting edema at baseline per patient - Neurological Exam Neurological exam: Absent: facial droop, speech deficit - Skin Skin exam: Present: dry, intact, normal color. Absent: cyanosis, diaphoretic, erythema, mottled, pallor, rash Internal Med - H&P Results - Labs CBC & Chem 7: 08/13/17 17:20 08/13/17 17:20 <Estevan Aceves - Last Filed: 08/14/17 05:30> Date of Encounter: 08/14/17 Internal Medicine - H&P: HPI History of present illness: Ms. Lares is a 87 year old female All Systems PM: A 10-system review of systems was performed and is negative for pertinent findings except as documented above in the HPI. - Constitutional Vitals: Temp Pulse Resp BP Pulse Ox 97.8 F 77 16 109/58 99 08/14/17 03:20 08/14/17 03:20 08/14/17 04:21 08/14/17 03:20 08/14/17 04:21 Internal Med - H&P Results - Labs CBC & Chem 7: 08/13/17 17:20 08/13/17 17:20 - Attending Attestation I have seen and examined this pt independently. I have discussed with Resident physician Dr Burns regarding the management plan. Agree with the documentation.
[2017-08-13] MEDS ORDERED: carBAMazepine 200 MG TABLET PO PRN (22:44)
[2017-08-13] MEDS ORDERED: Latanoprost 2.5 ML BOTTLE BOTH EYES SCH (22:45)
[2017-08-13] MEDS: diazePAM 2 MG TABLET PO SCH (23:18)
[2017-08-13] MEDS: Insulin LISPRO 300 UNITS/3 ML VIAL SQ SCH (23:28)
[2017-08-13] MEDS: Ipratropium/Albuterol Neb 3 ML IH SCH (23:40)
[2017-08-14] MEDS: Ipratropium/Albuterol Neb 3 ML IH SCH ×6 (04:21→23:33)
[2017-08-14] MEDS: *HR* Heparin 5,000 UNIT/ML VIAL SQ SCH ×2 (05:56→18:23)
[2017-08-14 06:49] LABS: Basophils % 0.3 %; Hematocrit 27.6 % (35.3-44.9); Hemoglobin 8.8 g/dL (11.5-15.4); Immature Granulocytes % 0.5 % (0-4); Lymphocytes # 0.4 K/mcL (0.6-4.6); Lymphocytes % 9.6 %; Mean Corpuscular HGB Conc 31.9 g/dL (31.6-35.5); Mean Corpuscular Hemoglobin 32.6 pg (28.0-33.3); Mean Corpuscular Volume 102.2 fL (83.0-100.0); Mean Platelet Volume 9.5 fL (9.4-12.4); Monocytes # 0.2 K/mcL (0.0-1.3); Monocytes % 6.6 %; Nucleated Red Blood Cells 0.5 /100 WBC (0); Platelet Count 261 K/mcL (140-400); Red Cell Distribution Width 13.2 % (11.5-14.5)
[2017-08-14 06:55] LABS: Hemoglobin A1C 5.5 %
[2017-08-14 07:03] LABS: BUN/Creatinine Ratio 14 (6-26); Blood Urea Nitrogen 11 mg/dL (8-23); Calcium 9.2 mg/dL (8.6-10.3); Carbon Dioxide 29 mEq/L (23-29); Chloride 98 mEq/L (98-107); Glucose 160 mg/dL (70-105); Osmolality,Calculated 281 (280-300); Potassium 4.2 mEq/L (3.5-5.1); Sodium 134 mEq/L (136-145); eGFR For African Americans > 60 (> 60); eGFR For Non-African Americans > 60 (> 60)
[2017-08-14] MEDS: Insulin LISPRO 300 UNITS/3 ML VIAL SQ SCH ×4 (08:51→20:58)
[2017-08-14] MEDS: NIFEdipine XL (24 HR) 60 MG TAB.ER.24 PO SCH (08:52)
--- NOTE | 2017-08-14 14:33 | Internal Med Progress Note ---
Date of Encounter: 08/14/17 Time of Encounter: 14:14 - Assessment and plan (1) Acute exacerbation of chronic obstructive airways disease Current Visit: No Status: Acute Assessment and plan: At home is on 3 L, currently on 3 L but patient not close to baseline. She admits to deconditioning since dyspnea has been getting worse Continue supp O2 as needed Duonebs Q4H and prn Prednisone 40 mg burst daily for 5 days. Hold antibiotics for now. (2) Anxiety Current Visit: No Status: Chronic Assessment and plan: Low-dose SSI with FSBG TID-AC-HS Diabetic diet. 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 insulin use: without elementary school music teacher use Qualified Code(s): E11.8 - Type 2 diabetes mellitus with unspecified complications (4) Hypertension Current Visit: No Status: Chronic Assessment and plan: Continue home medications Qualifiers: Hypertension type: essential hypertension Qualified Code(s): I10 - Essential (primary) hypertension (5) COPD exacerbation Current Visit: Yes Status: Acute (6) Anemia Current Visit: No Status: Acute Qualifiers: Anemia type: other cause Other causes of anemia: acute posthemorrhagic Qualified Code(s): D62 - Acute posthemorrhagic anemia (7) Weakness Current Visit: No Status: Acute Assessment and plan: PT - Subjective Interval history: Patient still feels like catching breath, not at baseline. She is feeling very weak because hasn't moved much from being short of breath for past several days. - Constitutional Vitals: Temp Pulse Resp BP Pulse Ox 98.6 F 53 19 111/55 93 08/14/17 14:02 08/14/17 14:02 08/14/17 14:02 08/14/17 14:02 08/14/17 14:02 General appearance: Present: A&O X 3, no acute distress, answers questions appropriately - Cardiovascular Cardiovascular exam: Present: RRR, +S1, +S2. Absent: diastolic murmur, gallop, rubs, systolic murmur Internal Medicine: Result - Labs CBC & Chem 7: 08/14/17 06:15 08/14/17 06:15 Labs: Short CBC 08/14/17 Range/Units 06:15 WBC 3.7 L (4.3-11.1) K/mcL Hgb 8.8 L (11.5-15.4) g/dL Hct 27.6 L (35.3-44.9) % Plt Count 261 (140-400) K/mcL Neutrophils # 3.0 (1.6-8.9) K/mcL [facility] 08/14/17 06:15 Sodium 134 L Potassium 4.2 Chloride 98 Carbon Dioxide 29 BUN 11 Creatinine 0.79 Glucose 160 H Calcium 9.2 Consult Discharge Plan - Plan Referrals: Kirstin Kraus DO [Primary Care Provider] -
--- NOTE | 2017-08-14 16:58 | Electrocardiograph Report ---
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
[2017-08-14] MEDS: Fluticasone Propionate Nasal 50 MCG/SPRAY BOTTLE NS SCH (18:45)
[2017-08-14] MEDS ORDERED: diazePAM 2 MG TABLET PO SCH (21:00)
[2017-08-14] MEDS: diazePAM 2 MG TABLET PO SCH (21:01)
[2017-08-14] MEDS: Latanoprost 2.5 ML BOTTLE BOTH EYES SCH (21:02)
[2017-08-14] MEDS: Benzonatate 100 MG CAPSULE PO PRN (21:02)
[2017-08-15] MEDS: Ipratropium/Albuterol Neb 3 ML IH SCH ×5 (04:00→19:47)
[2017-08-15] MEDS: *HR* Heparin 5,000 UNIT/ML VIAL SQ SCH ×2 (06:18→17:20)
[2017-08-15 07:21] LABS: Basophils % 0.3 %; Eosinophils # 0.3 K/mcL (0.0-0.6); Eosinophils % 4.3 %; Hematocrit 25.5 % (35.3-44.9); Immature Granulocytes % 0.4 % (0-4); Lymphocytes # 1.4 K/mcL (0.6-4.6); Lymphocytes % 19.9 %; Mean Corpuscular HGB Conc 31.4 g/dL (31.6-35.5); Mean Corpuscular Hemoglobin 31.6 pg (28.0-33.3); Mean Corpuscular Volume 100.8 fL (83.0-100.0); Mean Platelet Volume 9.5 fL (9.4-12.4); Monocytes # 0.7 K/mcL (0.0-1.3); Monocytes % 9.5 %; Neutrophils # 4.6 K/mcL (1.6-8.9); Platelet Count 264 K/mcL (140-400); Red Blood Count 2.53 M/mcL (3.82-4.97); Red Cell Distribution Width 13.2 % (11.5-14.5); Segmented Neutrophils % 65.6 %
[2017-08-15 08:04] LABS: BUN/Creatinine Ratio 22 (6-26); Blood Urea Nitrogen 15 mg/dL (8-23); Calcium 8.5 mg/dL (8.6-10.3); Carbon Dioxide 33 mEq/L (23-29); Chloride 100 mEq/L (98-107); Glucose 123 mg/dL (70-105); Osmolality,Calculated 284 (280-300); Sodium 136 mEq/L (136-145); eGFR For African Americans > 60 (> 60); eGFR For Non-African Americans > 60 (> 60)
[2017-08-15] MEDS: Insulin LISPRO 300 UNITS/3 ML VIAL SQ SCH ×4 (09:09→21:43)
--- NOTE | 2017-08-15 09:31 | Internal Med Progress Note ---
Date of Encounter: 08/15/17 Time of Encounter: 09:29 - Assessment and plan (1) COPD exacerbation Current Visit: Yes Status: Acute Assessment and plan: continue duonebs, prednisone, O2 supplement NO indication for antibiotics at this time (2) Anemia Current Visit: Yes Status: Chronic Assessment and plan: HB stable at baseline Qualifiers: Anemia type: other cause Other causes of anemia: acute posthemorrhagic Qualified Code(s): D62 - Acute posthemorrhagic anemia (3) DVT prophylaxis Current Visit: Yes Status: Acute Assessment and plan: Heparin SQ (4) Anxiety Current Visit: Yes Status: Chronic Assessment and plan: Continue home meds (5) Diabetes mellitus Current Visit: Yes Status: Chronic Assessment and plan: SSI. Hold metformin FS ACHS ADA diet Qualifiers: Diabetes mellitus type: type 2 Diabetes mellitus complication status: with unspecified complications Diabetes mellitus group home insulin use: without group home use Qualified Code(s): E11.8 - Type 2 diabetes mellitus with unspecified complications (6) Hypertension Current Visit: Yes Status: Chronic Assessment and plan: Continue home medications Qualifiers: Hypertension type: essential hypertension Qualified Code(s): I10 - Essential (primary) hypertension (7) Hypothyroidism Current Visit: Yes Status: Chronic Assessment and plan: continue home meds Qualifiers: Hypothyroidism type: unspecified Qualified Code(s): E03.9 - Hypothyroidism , unspecified (8) Physical deconditioning Current Visit: Yes Status: Acute Assessment and plan: PTOT eval - Subjective Interval history: Readmitted for COPD exacerbation. Chief complaint complains of congestion in her chest, she has no cough. She also complains of unable to move and generalized weakness. She is visually impaired and has hearing difficulty Awaiting PTOT eval, her O2 sat is at baseline. CXR is unremarkable for inifltrates, Flu is negative High risk for delirium due to age and co-mobidities, as well as visual impairment - Constitutional Vitals: Temp Pulse Resp BP Pulse Ox 98.8 F 78 18 126/63 95 08/15/17 07:53 08/15/17 07:53 08/15/17 07:57 08/15/17 07:53 08/15/17 07:57 General appearance: Present: A&O X 3, no acute distress, answers questions appropriately - Head Head exam: Present: atraumatic, normocephalic - Eye Eye exam: Present: PERRL, conjuntiva pink, sclera anicteric Pupils: Present: PERRL - Neck Neck exam general surgery: Present: supple, trachea midline. Absent: lymphadenopathy - Respiratory Respiratory exam: Present: CTAB. Absent: accessory muscle use, rales, rhonchi, wheezes - Cardiovascular Cardiovascular exam: Present: RRR, +S1, +S2. Absent: diastolic murmur, gallop, rubs, systolic murmur - GI/Abdominal GI/Abdominal exam: Present: normal bowel sounds, soft, no peritoneal signs. Absent: distended, tenderness - Extremities Exam Extremities exam: Present: warm, radial pulses palpable and symmetrical. Absent : calf tenderness, cyanotic, pedal edema - Neurological Exam Neurological exam: Present: alert, CN II-XII intact, oriented X3, no focal deficits. Absent: pronater drift, facial droop, speech deficit - Skin Skin exam: Present: dry, intact Internal Medicine: Result - Labs CBC & Chem 7: 08/15/17 06:59 08/15/17 06:59 Labs: Short CBC 08/15/17 Range/Units 06:59 WBC 7.0 D (4.3-11.1) K/mcL Hgb 8.0 L (11.5-15.4) g/dL Hct 25.5 L (35.3-44.9) % Plt Count 264 (140-400) K/mcL Neutrophils # 4.6 (1.6-8.9) K/mcL BMP 08/15/17 06:59 Sodium 136 Potassium 4.0 Chloride 100 Carbon Dioxide 33 H BUN 15 Creatinine 0.69 Glucose 123 H Calcium 8.5 L Consult Discharge Plan - Plan Referrals: Kirstin Kraus DO [Primary Care Provider] -
[2017-08-15] MEDS: Benzonatate 100 MG CAPSULE PO PRN ×2 (10:07→17:19)
[2017-08-15] MEDS: predniSONE 20 MG TABLET PO SCH (10:08)
[2017-08-15] MEDS: NIFEdipine XL (24 HR) 60 MG TAB.ER.24 PO SCH (10:08)
[2017-08-15] MEDS: Fluticasone Propionate Nasal 50 MCG/SPRAY BOTTLE NS SCH (10:09)
[2017-08-15] MEDS: Latanoprost 2.5 ML BOTTLE BOTH EYES SCH (21:43)
[2017-08-15] MEDS: diazePAM 2 MG TABLET PO SCH (21:45)
[2017-08-16] MEDS: Ipratropium/Albuterol Neb 3 ML IH SCH ×7 (00:39→23:49)
[2017-08-16] MEDS: *HR* Heparin 5,000 UNIT/ML VIAL SQ SCH ×2 (05:50→16:50)
[2017-08-16] MEDS: Acetaminophen 325 MG TABLET PO PRN ×2 (05:53→16:50)
[2017-08-16 06:28] LABS: Basophils % 0.3 %; Eosinophils # 0.1 K/mcL (0.0-0.6); Eosinophils % 1.3 %; Hematocrit 27.7 % (35.3-44.9); Hemoglobin 8.7 g/dL (11.5-15.4); Lymphocytes # 1.7 K/mcL (0.6-4.6); Lymphocytes % 24.3 %; Mean Corpuscular HGB Conc 31.4 g/dL (31.6-35.5); Mean Corpuscular Hemoglobin 31.4 pg (28.0-33.3); Mean Platelet Volume 9.4 fL (9.4-12.4); Monocytes # 0.6 K/mcL (0.0-1.3); Monocytes % 9.3 %; Neutrophils # 4.3 K/mcL (1.6-8.9); Nucleated Red Blood Cells 0.3 /100 WBC (0); Platelet Count 286 K/mcL (140-400); Red Blood Count 2.77 M/mcL (3.82-4.97); Red Cell Distribution Width 13.3 % (11.5-14.5); Segmented Neutrophils % 63.8 %
[2017-08-16 06:44] LABS: BUN/Creatinine Ratio 23 (6-26); Blood Urea Nitrogen 15 mg/dL (8-23); Calcium 8.9 mg/dL (8.6-10.3); Carbon Dioxide 33 mEq/L (23-29); Chloride 97 mEq/L (98-107); Glucose 126 mg/dL (70-105); Osmolality,Calculated 278 (280-300); Potassium 3.7 mEq/L (3.5-5.1); Sodium 133 mEq/L (136-145); eGFR For African Americans > 60 (> 60); eGFR For Non-African Americans > 60 (> 60)
[2017-08-16] MEDS: NIFEdipine XL (24 HR) 60 MG TAB.ER.24 PO SCH (09:04)
[2017-08-16] MEDS: Insulin LISPRO 300 UNITS/3 ML VIAL SQ SCH ×4 (09:04→21:32)
[2017-08-16] MEDS: Fluticasone Propionate Nasal 50 MCG/SPRAY BOTTLE NS SCH (09:05)
[2017-08-16] MEDS: predniSONE 20 MG TABLET PO SCH (09:06)
[2017-08-16] MEDS: Hydrocortisone Acetate 25 MG RECTAL SUPPOSITORY RC SCH (11:24)
--- NOTE | 2017-08-16 12:30 | Internal Med Progress Note ---
Date of Encounter: 08/16/17 Time of Encounter: 12:28 - Assessment and plan (1) COPD exacerbation Current Visit: Yes Status: Acute Assessment and plan: continue duonebs, prednisone, O2 supplement add doxycycline po bid (2) Anemia Current Visit: Yes Status: Chronic Assessment and plan: HB stable at baseline Qualifiers: Anemia type: other cause Other causes of anemia: acute posthemorrhagic Qualified Code(s): D62 - Acute posthemorrhagic anemia (3) DVT prophylaxis Current Visit: Yes Status: Acute Assessment and plan: Heparin SQ (4) Anxiety Current Visit: Yes Status: Chronic Assessment and plan: Continue home meds (5) Diabetes mellitus Current Visit: Yes Status: Chronic Assessment and plan: SSI. Hold metformin FS ACHS ADA diet Qualifiers: Diabetes mellitus type: type 2 Diabetes mellitus complication status: with unspecified complications Diabetes mellitus meterman insulin use: without meterman use Qualified Code(s): E11.8 - Type 2 diabetes mellitus with unspecified complications (6) Hypertension Current Visit: Yes Status: Chronic Assessment and plan: Continue home medications Qualifiers: Hypertension type: essential hypertension Qualified Code(s): I10 - Essential (primary) hypertension (7) Hypothyroidism Current Visit: Yes Status: Chronic Assessment and plan: continue home meds Qualifiers: Hypothyroidism type: unspecified Qualified Code(s): E03.9 - Hypothyroidism , unspecified (8) Physical deconditioning Current Visit: Yes Status: Acute Assessment and plan: PTOT eval noted. Fall precautions - Subjective Interval history: Readmitted for COPD exacerbation. She has no new complains today PT eval noted-for home health Patient states she is not comfrtbale going back home She is still wheezing She is visually impaired and has hearing difficulty her O2 sat is at baseline. CXR is unremarkable for inifltrates, Flu is negative High risk for delirium due to age and co-mobidities, as well as visual impairment - Constitutional Vitals: Temp Pulse Resp BP Pulse Ox 97.5 F L 79 16 148/68 95 08/16/17 10:54 08/16/17 10:54 08/16/17 12:01 08/16/17 10:54 08/16/17 12:01 General appearance: Present: A&O X 3, no acute distress, answers questions appropriately - Head Head exam: Present: atraumatic, normocephalic - Eye Eye exam: Present: PERRL, conjuntiva pink, sclera anicteric Pupils: Present: PERRL - Neck Neck exam general surgery: Present: supple, trachea midline. Absent: lymphadenopathy - Respiratory Respiratory exam: Present: wheezes. Absent: rhonchi, tachypnea - Cardiovascular Cardiovascular exam: Present: RRR, +S1, +S2. Absent: diastolic murmur, gallop, rubs, systolic murmur - GI/Abdominal GI/Abdominal exam: Present: normal bowel sounds, soft, no peritoneal signs. Absent: distended, tenderness - Extremities Exam Extremities exam: Present: warm, radial pulses palpable and symmetrical. Absent : calf tenderness, cyanotic, pedal edema - Neurological Exam Neurological exam: Present: alert, CN II-XII intact, oriented X3, no focal deficits. Absent: pronater drift, facial droop, speech deficit - Skin Skin exam: Present: dry, intact Internal Medicine: Result - Labs CBC & Chem 7: 08/16/17 06:12 08/16/17 06:12 Labs: Short CBC 08/16/17 Range/Units 06:12 WBC 6.8 (4.3-11.1) K/mcL Hgb 8.7 L (11.5-15.4) g/dL Hct 27.7 L (35.3-44.9) % Plt Count 286 (140-400) K/mcL Neutrophils # 4.3 (1.6-8.9) K/mcL BMP 08/16/17 06:12 Sodium 133 L Potassium 3.7 Chloride 97 L Carbon Dioxide 33 H BUN 15 Creatinine 0.65 Glucose 126 H Calcium 8.9 Consult Discharge Plan - Plan Referrals: Kirstin Kraus DO [Primary Care Provider] -
[2017-08-16] MEDS: Doxycycline 100 MG CAPSULE PO SCH (21:30)
[2017-08-16] MEDS: diazePAM 2 MG TABLET PO SCH (21:30)
[2017-08-16] MEDS: Latanoprost 2.5 ML BOTTLE BOTH EYES SCH (21:32)
[2017-08-17] MEDS: Ipratropium/Albuterol Neb 3 ML IH SCH ×6 (04:16→23:53)
[2017-08-17] MEDS: *HR* Heparin 5,000 UNIT/ML VIAL SQ SCH ×2 (06:15→17:33)
[2017-08-17] MEDS: Insulin LISPRO 300 UNITS/3 ML VIAL SQ SCH ×4 (07:53→20:53)
[2017-08-17] MEDS: NIFEdipine XL (24 HR) 60 MG TAB.ER.24 PO SCH (10:24)
[2017-08-17] MEDS: Doxycycline 100 MG CAPSULE PO SCH ×2 (10:24→20:42)
[2017-08-17] MEDS: predniSONE 20 MG TABLET PO SCH (10:24)
[2017-08-17] MEDS: Fluticasone Propionate Nasal 50 MCG/SPRAY BOTTLE NS SCH (10:29)
[2017-08-17] MEDS: Hydrocortisone Acetate 25 MG RECTAL SUPPOSITORY RC SCH (10:31)
--- NOTE | 2017-08-17 10:52 | Internal Med Progress Note ---
Date of Encounter: 08/17/17 Time of Encounter: 10:51 - Assessment and plan (1) COPD exacerbation Current Visit: Yes Status: Acute Assessment and plan: continue duonebs, prednisone, O2 supplement continue doxycycline po bid (2) Anemia Current Visit: Yes Status: Chronic Assessment and plan: HB stable at baseline Qualifiers: Anemia type: other cause Other causes of anemia: acute posthemorrhagic Qualified Code(s): D62 - Acute posthemorrhagic anemia (3) DVT prophylaxis Current Visit: Yes Status: Acute Assessment and plan: Heparin SQ (4) Anxiety Current Visit: Yes Status: Chronic Assessment and plan: Continue home meds (5) Diabetes mellitus Current Visit: Yes Status: Chronic Assessment and plan: SSI. Hold metformin FS ACHS ADA diet Qualifiers: Diabetes mellitus type: type 2 Diabetes mellitus complication status: with unspecified complications Diabetes mellitus fpc insulin use: without oysterman use Qualified Code(s): E11.8 - Type 2 diabetes mellitus with unspecified complications (6) Hypertension Current Visit: Yes Status: Chronic Assessment and plan: Continue home medications Qualifiers: Hypertension type: essential hypertension Qualified Code(s): I10 - Essential (primary) hypertension (7) Hypothyroidism Current Visit: Yes Status: Chronic Assessment and plan: continue home meds Qualifiers: Hypothyroidism type: unspecified Qualified Code(s): E03.9 - Hypothyroidism , unspecified (8) Physical deconditioning Current Visit: Yes Status: Acute Assessment and plan: PTOT eval noted. Fall precautions (9) Malnutrition Current Visit: Yes Status: Chronic Assessment and plan: continue supplements as recommended by Nutrition Qualifiers: Malnutrition type: protein-calorie malnutrition Protein-calorie malnutrition severity: severe Qualified Code(s): E43 - Unspecified severe protein-calorie malnutrition (10) Chronic respiratory failure Current Visit: Yes Status: Chronic Assessment and plan: on her baseline home O2 Qualifiers: Respiratory failure complication: hypoxia Qualified Code(s): J96.11 - Chronic respiratory failure with hypoxia - Subjective Interval history: Readmitted for COPD exacerbation. She has no new complains today Her sputum production has decreased. She is still saying she doesnt feel optimal Her chest is CTA B, she is at her baseline home O2 need - Constitutional Vitals: Temp Pulse Resp BP Pulse Ox 98.5 F 74 18 171/72 95 08/17/17 07:03 08/17/17 07:03 08/17/17 08:38 08/17/17 07:03 08/17/17 10:34 General appearance: Present: A&O X 3, no acute distress, answers questions appropriately - Head Head exam: Present: atraumatic, normocephalic - Eye Eye exam: Present: PERRL, conjuntiva pink, sclera anicteric Pupils: Present: PERRL - Neck Neck exam general surgery: Present: supple, trachea midline. Absent: lymphadenopathy - Respiratory Respiratory exam: Present: CTAB. Absent: accessory muscle use, rales, rhonchi, wheezes - Cardiovascular Cardiovascular exam: Present: RRR, +S1, +S2. Absent: diastolic murmur, gallop, rubs, systolic murmur - GI/Abdominal GI/Abdominal exam: Present: normal bowel sounds, soft, no peritoneal signs. Absent: distended, tenderness - Extremities Exam Extremities exam: Present: warm, radial pulses palpable and symmetrical. Absent : calf tenderness, cyanotic, pedal edema - Neurological Exam Neurological exam: Present: alert, CN II-XII intact, oriented X3, no focal deficits. Absent: pronater drift, facial droop, speech deficit - Skin Skin exam: Present: dry, intact Internal Medicine: Result - Labs CBC & Chem 7: 08/16/17 06:12 08/16/17 06:12 Consult Discharge Plan - Plan Referrals: Kirstin Kraus DO [Primary Care Provider] -
[2017-08-17] MEDS: Benzonatate 100 MG CAPSULE PO PRN (13:49)
[2017-08-17] MEDS: diazePAM 2 MG TABLET PO SCH (20:43)
[2017-08-17] MEDS: Latanoprost 2.5 ML BOTTLE BOTH EYES SCH (20:50)
[2017-08-17] MEDS ORDERED: Sennosides/Docusate Sodium TABLET PO SCH (21:00)
[2017-08-18] MEDS: Ipratropium/Albuterol Neb 3 ML IH SCH ×3 (03:47→11:51)
[2017-08-18] MEDS: *HR* Heparin 5,000 UNIT/ML VIAL SQ SCH (06:15)
[2017-08-18] MEDS: Insulin LISPRO 300 UNITS/3 ML VIAL SQ SCH ×2 (08:15→11:38)
[2017-08-18] MEDS: Doxycycline 100 MG CAPSULE PO SCH (08:34)
[2017-08-18] MEDS: predniSONE 20 MG TABLET PO SCH (08:34)
[2017-08-18] MEDS: Fluticasone Propionate Nasal 50 MCG/SPRAY BOTTLE NS SCH (08:35)
[2017-08-18] MEDS: NIFEdipine XL (24 HR) 60 MG TAB.ER.24 PO SCH (08:35)
[2017-08-18] MEDS: Hydrocortisone Acetate 25 MG RECTAL SUPPOSITORY RC SCH (08:35)
[2017-08-18 10:47] VITALS: BP 101/45
--- NOTE | 2017-08-18 11:30 | Discharge Summary ---
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 mellitus environmental compliance engineer insulin use: without skilled nursing use Qualified Code(s): E11.8 - Type 2 diabetes mellitus with unspecified complications (6) Hypertension Priority: Secondary Status: Chronic Qualifiers: Hypertension type: essential hypertension Qualified Code(s): I10 - Essential (primary) hypertension (7) Hypothyroidism Priority: Secondary Status: Chronic Qualifiers: Hypothyroidism type: unspecified Qualified Code(s): E03.9 - Hypothyroidism , unspecified (8) Physical deconditioning Priority: Primary Status: Acute (9) Malnutrition Priority: Primary Status: Chronic Qualifiers: Malnutrition type: protein-calorie malnutrition Protein-calorie malnutrition severity: severe Qualified Code(s): E43 - Unspecified severe protein-calorie malnutrition (10) Chronic respiratory failure Priority: Secondary Status: Chronic Qualifiers: Respiratory failure complication: hypoxia Qualified Code(s): J96.11 - Chronic respiratory failure with hypoxia - Discharge Medications Prescriptions: diazePAM [Valium] 2 mg PO HS 7 Days #7 tablet Home Medications: Lisinopril 2.5 mg PO DAILY 07/01/15 [History] NIFEdipine [Nifedipine ER] 60 mg PO DAILY 07/01/15 [History] Simvastatin [Zocor] 20 mg PO HS 07/01/15 [History] Latanoprost [Xalatan] 1 drop BOTH EYES HS 04/04/17 [History] Acetylcysteine 10% 2 ml IH [id number] #42 inhsol 04/09/17 [Rx] Albuterol Neb [Proventil Neb] 2.5 mg IH Q2H PRN #0 inhsol 04/09/17 [Rx] Fluticasone Propionate Nasal [Flonase] 50 mcg NS DAILY #1 bottle 04/09/17 [Rx] Levothyroxine [Synthroid] 75 mcg PO 0630 tablet 04/09/17 [Rx] Saliva Stimulant [Biotene Moisturizing Rinse] 1 spray PO Q2H PRN bottle [Rx] carBAMazepine [Tegretol] 200 mg PO BID PRN tablet 04/09/17 [Rx] metFORMIN [Glucophage] 500 mg PO QAM 05/08/17 [History] Guaifenesin [Mucinex] 600 mg PO BID PRN 07/19/17 [History] Loperamide [Imodium] 2 mg PO DAILY PRN 07/19/17 [History] Ferrous Sulfate 325 mg PO BIDWM #60 tablet 07/24/17 [Rx] Hydrocortisone Acetate [Anucort-Hc] 25 mg RC DAILY supp.rect 07/24/17 [Rx] Lactobacillus [Culturelle] 1 each PO BID cap.sprink 07/24/17 [Rx] Albuterol Sulfate [Proair Hfa] 2 puff IH Q6H PRN 08/14/17 [History] Escitalopram [Lexapro] 10 mg PO DAILY 08/14/17 [History] Albuterol Neb [Proventil Neb] 2.5 mg IH Q2H PRN inhsol 08/18/17 [Rx] Doxycycline 100 mg PO BID #0 capsule 08/18/17 [Rx] Labetalol [Trandate] 200 mg PO BID tablet 08/18/17 [Rx] Sennosides/Docusate Sodium [Senna Plus] 1 each PO HS tablet 08/18/17 [Rx] diazePAM [Valium] 2 mg PO HS 7 Days #7 tablet 08/18/17 [Rx] predniSONE [PredniSONE] 40 mg PO DAILY tablet 08/18/17 [Rx] Allergies/Adverse Reactions: 3 Allergy/AdvReac Type Severity Reaction Status Date / Time cephalexin [From Keflex] Allergy Difficulty Verified 04/03/17 20:14 Breathing levofloxacin [From Levaquin] Allergy Difficulty Verified 04/03/17 20:14 Breathing moxifloxacin [From Avelox] Allergy Difficulty Verified 04/03/17 20:14 Breathing Date of admission: 08/15/17 07:32 Primary care physician: Kirstin Kraus DO Discharging clinician: Atilio Aleman Anticipated date of discharge: 08/18/17 - Patient Status Disposition: Transfer SNF Condition: Good Functional capacity at discharge: independent ambulation Overall status at discharge: patient is progressing back to baseline - Discharge Instructions Follow Up With: Kirstin Kraus DO [Primary Care Provider] - (ECF) - Diet and Activity Activity: as per physical therapy Diet: diabetic diet, low fat, low cholesterol, low salt diet Interval History: See below Hospital course: Ms. Lares is a 87 year old female with PMH of COPD with chronic respiratory failure on home O2 3L per minute. She also has HTN, HLD, Anxiety, Hypothyroidism She presented with shortness of brreath and wheezing and was admitted for management of COPD exacrerbation HEr O2 requirement has been stable at home dose No pneumonia on CXR, infleunza negative, chem and cbc have been unremarkable She was also complaining of weakness and difficulty doing her daily chores PTOT reji recommended home health, however, patient and her daughter agreed patient could not take care of herself at home in her assisted living and would like her to go to SNF Her respiratory symptoms have improved on current therapy and she is stable to be discharged to SNF to continue her prednisone taper-40mg daily for 3 days, 20mg daily for 3 days, 10 mg daily for 3 days, then discontinue She is also on doxycycline-day 2 and will benefit from continuation of same Humane Officer has recommended ensure food supplement with meals, continue same Plan of care, discussed , verbalized understanding - Time Spent with Patient Total time spent providing and/or coordinating discharge services: Greater than 30 minutes - Constitutional Vitals: Temp Pulse Resp BP Pulse Ox 98.7 F 53 14 101/45 95 08/18/17 10:42 08/18/17 10:42 08/18/17 10:42 08/18/17 10:42 08/18/17 10:42 General appearance: Present: A&O X 3, no acute distress, answers questions appropriately - Head Head exam: Present: atraumatic, normocephalic - Eye Eye exam: Present: PERRL, conjuntiva pink, sclera anicteric Pupils: Present: PERRL - Neck Neck exam general surgery: Present: supple, trachea midline. Absent: lymphadenopathy - Respiratory Respiratory exam: Present: CTAB. Absent: accessory muscle use, rales, rhonchi, wheezes - Cardiovascular Cardiovascular exam: Present: RRR, +S1, +S2. Absent: diastolic murmur, gallop, rubs, systolic murmur - GI/Abdominal GI/Abdominal exam: Present: normal bowel sounds, soft, no peritoneal signs. Absent: distended, tenderness - Extremities Exam Extremities exam: Present: warm, radial pulses palpable and symmetrical. Absent : calf tenderness, cyanotic, pedal edema - Neurological Exam Neurological exam: Present: alert, CN II-XII intact, oriented X3, no focal deficits. Absent: pronater drift, facial droop, speech deficit - Skin Skin exam: Present: dry, intact
--- NOTE | 2017-08-18 11:33 | Physician Discharge Referral ---
ExtendedCare Referral Info Transfer To: [facility] Provider in Charge: Loc Aleman Provider in Charge after Transfer: PCP Institutional Level of Care: Skilled - Diagnosis (1) COPD exacerbation Priority: Primary Status: Acute (2) Anemia Priority: Secondary Status: Chronic (3) DVT prophylaxis Priority: Primary Status: Acute (4) Anxiety Priority: Secondary Status: Chronic (5) Diabetes mellitus Priority: Secondary Status: Chronic (6) Hypertension Priority: Secondary Status: Chronic (7) Hypothyroidism Priority: Secondary Status: Chronic (8) Physical deconditioning Priority: Primary Status: Acute (9) Malnutrition Priority: Secondary Status: Chronic (10) Chronic respiratory failure Priority: Secondary Status: Chronic Prognosis: Fair Aware of Diagnosis: Patient, Family Aware of Prognosis: Patient, Family - Transfer Medications Prescriptions: diazePAM [Valium] 2 mg PO HS 7 Days #7 tablet Home Medications: Lisinopril 2.5 mg PO DAILY 07/01/15 [History] NIFEdipine [Nifedipine ER] 60 mg PO DAILY 07/01/15 [History] Simvastatin [Zocor] 20 mg PO HS 07/01/15 [History] Latanoprost [Xalatan] 1 drop BOTH EYES HS 04/04/17 [History] Acetylcysteine 10% 2 ml IH [id number] #42 inhsol 04/09/17 [Rx] Albuterol Neb [Proventil Neb] 2.5 mg IH Q2H PRN #0 inhsol 04/09/17 [Rx] Fluticasone Propionate Nasal [Flonase] 50 mcg NS DAILY #1 bottle 04/09/17 [Rx] Levothyroxine [Synthroid] 75 mcg PO 0630 tablet 04/09/17 [Rx] Saliva Stimulant [Biotene Moisturizing Rinse] 1 spray PO Q2H PRN bottle [Rx] carBAMazepine [Tegretol] 200 mg PO BID PRN tablet 04/09/17 [Rx] metFORMIN [Glucophage] 500 mg PO QAM 05/08/17 [History] Guaifenesin [Mucinex] 600 mg PO BID PRN 07/19/17 [History] Loperamide [Imodium] 2 mg PO DAILY PRN 07/19/17 [History] Ferrous Sulfate 325 mg PO BIDWM #60 tablet 07/24/17 [Rx] Hydrocortisone Acetate [Anucort-Hc] 25 mg RC DAILY supp.rect 07/24/17 [Rx] Lactobacillus [Culturelle] 1 each PO BID cap.sprink 07/24/17 [Rx] Albuterol Sulfate [Proair Hfa] 2 puff IH Q6H PRN 08/14/17 [History] Escitalopram [Lexapro] 10 mg PO DAILY 08/14/17 [History] Albuterol Neb [Proventil Neb] 2.5 mg IH Q2H PRN inhsol 08/18/17 [Rx] Doxycycline 100 mg PO BID #0 capsule 08/18/17 [Rx] Labetalol [Trandate] 200 mg PO BID tablet 08/18/17 [Rx] Sennosides/Docusate Sodium [Senna Plus] 1 each PO HS tablet 08/18/17 [Rx] diazePAM [Valium] 2 mg PO HS 7 Days #7 tablet 08/18/17 [Rx] predniSONE [PredniSONE] 40 mg PO DAILY tablet 08/18/17 [Rx] Allergies/Adverse Reactions: 3 Allergy/AdvReac Type Severity Reaction Status Date / Time cephalexin [From Keflex] Allergy Difficulty Verified 04/03/17 20:14 Breathing levofloxacin [From Levaquin] Allergy Difficulty Verified 04/03/17 20:14 Breathing moxifloxacin [From Avelox] Allergy Difficulty Verified 04/03/17 20:14 Breathing - Respiratory Orders Oxygen / L per min (3 L per min continuous) Smoking Cessation: Smoking cessation has been advised. For more information, call the [place] Tobacco Quit Line at 9-716-HTYA-NOW. - Mobility Orders Other (per PT) - Diet Orders No Concentrated Sweets, Cardiac CERTIFICATION: I certify that the transfer of the above named patient to an Extended Care Facility is necessary for the continuing treatment of the diagnosis listed. The above information is true and accurate reflection of patient's current condition. Confidential - Redisclosure prohibited without a patient's written consent.
[2017-08-18] MEDS: Acetaminophen 325 MG TABLET PO PRN (13:41)
== END 2017-08-18 14:42 | DRG 190 ==
LOC: EMEROO 16:46 → 3ANU 16:46 → SUATTDRO 19:37 → 3ANU 20:07
PROVIDERS: ADMIT Student in an Organized Health Care Education/Training Program; ATTEND Internal Medicine